=== PATIENT | male | born 1945 | race Caucasian/White ===

== ENCOUNTER 2019-04-05 09:17 | Inpatient (IN) ==
--- NOTE | 2019-04-05 09:58 | XRay Report ---
XR chest 1V portable CLINICAL HISTORY: weakness dyspnea COMPARISON STUDY: 04/03/2019 FINDINGS: The bones soft tissues and hemidiaphragms are normal. The cardiomediastinal silhouette is n ormal. The lungs are clear. The pulmonary vasculature is normal. IMPRESSION: Negative chest. The above report was generated using voice recognition software. It may contain grammatical, syntax or spelling errors. Electronically signed by: Jose Hill M.D. 04/05/2019 9:56 AM
[2019-04-05 10:03] LABS: Basophils # (auto) 0.03 K/uL (0-0.2); Basophils % (auto) 0.6 %; Eosinophils # (auto) 0.03 K/uL (0-0.5); Eosinophils % (auto) 0.6 %; Hematocrit (blood only) 40.2 % (42-52); Hemoglobin 13.3 g/dL (14.0-18.0); Immature Granulocytes # (auto) 0.01 K/uL (0.00-0.02); Immature Granulocytes % (auto) 0.2 %; Lymphocytes # (auto) 1.34 K/uL (1.2-3.4); Lymphocytes % (auto) 28.6 %; Mean Corpuscular Hemoglobin 25.7 pg (25-34); Mean Corpuscular Hgb Conc 33.1 g/dL (32-36); Mean Corpuscular Volume 77.8 fL (80-100); Mean Platelet Volume 9.8 fL (7.4-10.4); Monocytes # (auto) 0.45 K/uL (0.11-0.59); Monocytes % (auto) 9.6 %; Neutrophils # (auto) 2.83 K/uL (1.4-6.5); Neutrophils % (auto) 60.4 %; Platelet Count 145 K/uL (130-400); RDW Coefficient of Variation 14.7 % (11.5-14.5); RDW Standard Deviation 41.4 fL (36.4-46.3); Red Blood Count 5.17 M/uL (4.7-6.1); White Blood Count 4.69 K/uL (4.8-10.8)
[2019-04-05 10:20] LABS: Alanine Aminotransferase 37 U/L (12-78); Albumin Level 4.1 gm/dl (3.4-5.0); Aspartate Aminotransferase 34 U/L (15-37); BUN Creatinine Ratio 19.3 (10-20); Blood Urea Nitrogen 23 mg/dl (7-18); Calcium 9.5 mg/dl (8.5-10.1); Carbon Dioxide 28 mmol/L (21-32); Chloride 102 mmol/L (98-107); Creatinine Clr Calc Pharmacy 72.6 ml/min; Est GFR (Non-African American) 61.3; Glucose 123 mg/dl (70-99); Magnesium 2.1 mg/dl (1.8-2.4); Potassium 3.9 mmol/L (3.5-5.1); Sodium 135 mmol/L (136-145)
--- NOTE | 2019-04-05 10:21 | Emergency Department Note ---
Entered by Cherelle Lemus acting as a scribe for Basil uDmont MD History of Present Illness General Chief complaint: Dizziness Stated complaint: DIZZY ALL THE TIME, HYPOGLYCEMIA Time Seen by Provider: 04/05/19 09:28 Source: patient History of Present Illness Onset (ago): hour(s) (couple) Location: head Pain Consistency: + other (worsening) Maximum Pain Intensity: 0 Quality: + other (dizziness) Associated symptoms: + other (+"gassy" feeling in stomach; +shaky ); no chest pain, no cough, no diaphoresis, no fever/chills, no nausea/vomiting and no shortness of breath The patient is a 73 year old male, with past medical history of bradycardia, who presents to the Emergency Room with complaints of worsening dizziness over the past couple hours. 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 The patient notes he also had a gassy feeling in his stomach that kept giving him the urge to belch during this time. He states he also felt shaky and noticed his stomach making abnormal noises at this time as well. The patient states this episode has not subsided to this point. The patient reports he has had two episodes of dizziness in the past, with one occurring two months ago and one occurring two days ago. The patient states these past dizziness episodes led to him passing out each time, but the patient states he did not pass out in todays episode of dizziness. The patient denies experiencing chest pain, sweating, nausea, shortness of breath, or having a cough or fever. The patient reports he has had trouble with low blood pressure recently especially when getting up from a prone position. He also reports that he and his PCP agreed to cut his chlorthalidone prescription in half following the patient's first episode of dizziness and syncope that occurred two months ago. The patient states he thought this change helped the symptoms for a while. The patient also notes he has been dieting recently because he was told by his PCP to lose weight. He states he recently has lost 30 pounds. After the patients last dizziness and syncope episode that occurred 2 days ago, the patient notes he was told to reach out to his family doctor and schedule a follow-up visit with a edge stainer. The patient denies past cardiac issues. Home Medications Home Medications Medication Instructions Recorded Confirmed Type aspirin 81 mg PO HS 01/31/19 04/05/19 History atorvastatin 40 mg PO QAM 01/31/19 04/05/19 History calcium carbonate-vitamin D3 1 cap PO QAM 01/31/19 04/05/19 History [Calcium 600 + D(3)] chlorthalidone 25 mg PO QAM 01/31/19 04/05/19 History jv-ksm-ynkll acid-lutein [Centrum 1 tab PO QAM 01/31/19 04/05/19 History Silver] omega 7-gwi-qag-fish oil [Fish Oil] 1 cap PO TID 01/31/19 04/05/19 History ramipril 10 mg PO HS 01/31/19 04/05/19 History naproxen-diphenhydramine [Aleve PM] 1 tab PO PM 04/03/19 04/05/19 History Allergies Allergy/AdvReac Type Severity Reaction Status Date / Time Penicillins Allergy Intermediate Hives Verified 04/05/19 10:15 Past Med/Surg History Medical History Bradycardia (Acute) High cholesterol Hypertension Family History Other No significant past medical history Social History Preferred Language: Frisian Communication Ability: Effective Beliefs That Will Affect Care: Orthodox, Spiritual and Cultural Current Living Situation: Spouse Other Information That Helps Us Care for You: No Feels Safe at Home: Yes Safety Concerns: Feels Safe At This Time Smoking Status: Former smoker Hx Alcohol Use: Yes Alcohol type: wine Hx Substance Use: No Review of Systems See HPI for pertinent positives & negatives. and A total of 10 systems reviewed and were otherwise negative Physical Exam Vital Signs Vital Signs - 24 hr 04/05/19 09:22 04/05/19 10:05 04/05/19 10:06 Temperature 36.7 C Temperature Source Oral Pulse Rate - Lying Pulse Rate - Sitting Pulse Rate - Standing Pulse Rate 55 L 68 53 L Pulse Rate from SpO2 Sensor 66 54 L Respiratory Rate 16 20 21 Blood Pressure - Lying Blood Pressure - Sitting Blood Pressure- Standing Blood Pressure 189/78 H 174/92 H Blood Pressure Mean 115 132 Pulse Oximetry 99 97 97 Oxygen Delivery Method Room Air Sepsis Recent Fever Within 48 Hours No Sepsis New/Unexplained Change in Mental Status No Sepsis Action Taken by Nursing No Action Required 04/05/19 10:07 04/05/19 10:10 04/05/19 10:15 Temperature Temperature Source Pulse Rate - Lying 52 L Pulse Rate - Sitting 54 L Pulse Rate - Standing 57 L Pulse Rate 47 L Pulse Rate from SpO2 Sensor 48 L Respiratory Rate 20 Blood Pressure - Lying 139/76 Blood Pressure - Sitting 162/82 H Blood Pressure- Standing 174/92 H Blood Pressure Blood Pressure Mean Pulse Oximetry 98 98 Oxygen Delivery Method Room Air Sepsis Recent Fever Within 48 Hours Sepsis New/Unexplained Change in Mental Status Sepsis Action Taken by Nursing 04/05/19 10:31 04/05/19 10:32 Temperature Temperature Source Pulse Rate - Lying Pulse Rate - Sitting Pulse Rate - Standing Pulse Rate 45 L 49 L Pulse Rate from SpO2 Sensor 45 L 48 L Respiratory Rate 17 15 Blood Pressure - Lying Blood Pressure - Sitting Blood Pressure- Standing Blood Pressure 121/51 L Blood Pressure Mean 67 Pulse Oximetry 96 97 Oxygen Delivery Method Sepsis Recent Fever Within 48 Hours Sepsis New/Unexplained Change in Mental Status Sepsis Action Taken by Nursing GENERAL: Patient is in no acute distress. HEENT: No acute trauma, normocephalic atraumatic, mucous membranes moist, no nasal congestion, no scleral icterus. NECK: No stridor, no adenopathy, no meningismus, trachea is midline. LUNGS: Clear to auscultation bilaterally, no wheeze, no rhonchi, breath sounds equal. HEART: Without murmurs gallops or rubs, regular rate and rhythm. ABDOMEN: Soft, nontender, bowel sounds positive, no hernias, no peritonitis. EXTREMITIES: No cyanosis or edema, full range of motion of all the joints without pain or difficulty, no signs for acute trauma. NEUROLOGIC: Oriented x 3, no acute motor or sensory deficits, no focal weakness. SKIN: No rash, no jaundice, no diaphoresis. Course Course 930: Past medical records reviewed. The patient was evaluated in room A10. A complete history and physical exam was performed. 1023: The patient's orthostatic vital signs came back negative. 1052: I discussed the patient's case with Dr. Pack-Cardiology. Dr. Pack r ecommends that the patient is admitted to the hospital. 1057: I updated the patient on his case. The patient is agreeable with the plan. 1059: I reviewed the patient's case with Dr. Hernandez-Hospitalist. Dr. Hernandez will evaluate the patient for further management. Consultations Consultation #1: I discussed the patient's case with Dr. Pack-Cardiology. Dr. Pack recommends that the patient is admitted to the hospital. Time: 10:52 Consultation #2: I reviewed the patient's case with Dr. Hernandez-Hospitalist. Dr. Hernandez will evaluate the patient for further management. Time: 10:59 Administered Medications Fish Oil ([place]-3 (Purified Fish Oil)) 1 gm PO TID CAROL Stop: 05/05/19 13:59 Last Admin: 04/05/19 14:17 Dose: 1 gm Documented by: [id number] Sodium Chloride (Nss 1000ml) 1,000 mls @ 125 mls/hr IV .Q8H CAROL Stop: 04/06/19 11:29 Last Admin: 04/05/19 13:53 Dose: 125 mls/hr Documented by: [id number] Discontinued Medications Lisinopril (Zestril) 10 mg PO NOW ONE Stop: 04/05/19 12:34 Last Admin: 04/05/19 14:17 Dose: 10 mg Documented by: [id number] Medical Decision Making Differential Diagnosis Differential diagnosis includes orthostasis, anemia, dehydration, electrolyte imbalance, cardiac ischemia, bradycardia, dysrhythmia, atrial fibrillation, medication, reaction, amongst others were considered. Medical Records Attestation: I reviewed the patient's medical records. The patient was seen here on 04/[address] Young for dizziness. The patient had a few episodes of bradycardia while in the ED. No cause for the patient's dizziness was found at that time. The patient was recommended to obtain outpatient care. Home Medications Current Medication List: was personally reviewed by me Laboratory Data Attestation: I reviewed the patient's lab results. Result diagrams: 04/05/19 09:50 04/05/19 09:50 Lab Results 04/05/19 04/05/19 Range/Units 09:50 09:50 WBC 4.69 L (4.8-10.8) K/uL RBC 5.17 (4.7-6.1) M/uL Hgb 13.3 L (14.0-18.0) g/dL Hct 40.2 L (42-52) % MCV 77.8 L (80-100) fL MCH 25.7 (25-34) pg MCHC 33.1 (32-36) g/dL RDW Std Deviation 41.4 (36.4-46.3) fL RDW Coeff of Anupam 14.7 H (11.5-14.5) % Plt Count 145 (130-400) K/uL MPV 9.8 (7.4-10.4) fL Immature Gran % (Auto) 0.2 % Neut % (Auto) 60.4 % Lymph % (Auto) 28.6 % [place] % (Auto) 9.6 % Eos % (Auto) 0.6 % Baso % (Auto) 0.6 % Immature Gran # (Auto) 0.01 (0.00-0.02) K/uL Neut # (Auto) 2.83 (1.4-6.5) K/uL Lymph # (Auto) 1.34 (1.2-3.4) K/uL [place] # (Auto) 0.45 (0.11-0.59) K/uL Eos # (Auto) 0.03 (0-0.5) K/uL Baso # (Auto) 0.03 (0-0.2) K/uL Sodium 135 L (136-145) mmol/L Potassium 3.9 (3.5-5.1) mmol/L Chloride 102 (98-107) mmol/L Carbon Dioxide 28 (21-32) mmol/L Anion Gap 5.0 (3-11) BUN 23 H (7-18) mg/dl Creatinine 1.18 (0.6-1.4) mg/dl Est Cr Clr Drug Dosing 72.6 ml/min Est GFR ( Amer) 71.0 Est GFR (Non-Af Amer) 61.3 BUN/Creatinine Ratio 19.3 (10-20) Glucose 123 H (70-99) mg/dl Calcium 9.5 (8.5-10.1) mg/dl Magnesium 2.1 (1.8-2.4) mg/dl Total Bilirubin 0.7 (0.2-1) mg/dl AST 34 (15-37) U/L ALT 37 (12-78) U/L Alkaline Phosphatase 49 (45-117) U/L Troponin I < 0.015 (0-0.045) ng/ml Total Protein 7.4 (6.4-8.2) gm/dl Albumin 4.1 (3.4-5.0) gm/dl Globulin 3.3 (2.5-4.0) gm/dl Albumin/Globulin Ratio 1.2 (0.9-2) TSH 2.180 (0.300-4.500) uIu/ml Imaging Data Radiologist's Impression: XR chest 1V portable CLINICAL HISTORY: weakness dyspnea COMPARISON STUDY: 04/03/2019 FINDINGS: The bones soft tissues and hemidiaphragms are normal. The cardiomediastinal silhouette is normal. The lungs are clear. The pulmonary vasculature is normal. IMPRESSION: Negative chest. The above report was generated using voice recognition software. It may contain grammatical, syntax or spelling errors. Electronically signed by: Jose Hill M.D. 04/05/2019 9:56 AM ECG Data Attestation: I personally reviewed and interpreted this ECG as follows: Indication: + bradycardia Rate (beats per minute): 60 Rhythm: + normal sinus ECG ST segments: no ST elevation ECG Findings: + Other (QTC 416); no PVCs Blood Pressure Blood Pressure Findings: Elevated blood pressure Blood Pressure Disposition: further management by hospitalist [facility] Narrative There is no leukocytosis or concerning anemia. No significant electrolyte abnormality or kidney failure. No evidence of for liver enzyme elevation. The patient appeared to be in a euthyroid state. EKG shows a sinus rhythm, no acute ischemia. Cardiac enzyme testing x1 is not consistent with acute cardiac injury. Chest film does not show cardiomegaly or CHF. There was no pneumonia. Orthostatic vital signs were negative. The patient presents with dizziness and near syncope. This issue has been ongoing but worsening. Patient is currently asymptomatic. His work-up is unrevealing. He did demonstrate some bradycardic spells while here in the ED although, it was a sinus bradycardia. I spoke with cardiology. Hospitalization, monitoring and further work-up were recommended. I did speak with case management, the on-call hospitalist was consulted. At this point, the cause for his presentation is not clear. Impression & Plan Near syncope, Bradycardia, Dizziness Discharge Plan Visit Data *Final* Discharge Date/Time: 04/05/19 12:28 Chief Complaint: Dizziness Stated Complaint: DIZZY ALL THE TIME, HYPOGLYCEMIA ED Provider: Basil Dumont Discharge Problem: Near syncope, Bradycardia, Dizziness Patient Disposition: Admitted As Inpatient Discharge Instructions Interventions: ED Discharge Assessment Last Done: 04/05/19 12:28 The scribe's documentation has been prepared under my direction and personally reviewed by me in its entirety. I confirm that the note above accurately reflects all work, treatment, procedures, and medical decision making performed by me.
[2019-04-05 10:31] LABS: Albumin Globulin Ratio 1.2 (0.9-2); Alkaline Phosphatase 49 U/L (45-117); Bilirubin,Total 0.7 mg/dl (0.2-1); Globulin 3.3 gm/dl (2.5-4.0); Total Protein 7.4 gm/dl (6.4-8.2); Troponin I < 0.015 ng/ml (0-0.045)
--- NOTE | 2019-04-05 11:34 | Cardiology Consultation ---
Date of Consultation April 05, 2019 Assessment & Plan (1) Near syncope: At this point there does not appear to be primary cardiac pathophysiology to his near syncope. Preliminary review of his echocardiogram shows no significant structural abnormalities or outlet obstructions. Telemetry monitoring shows normal sinus rhythm with some asymptomatic episodes of sinus bradycardia into the 40s. Would recommend he be monitored overnight on continuous telemetry and consideration may be given to outpatient telemetry monitoring on discharge. Our office will call to arrange cardiology follow-up in approximately 1 month. It does appear that his chlorthalidone may be an exacerbating factor and will be discontinued. His episodes are likely multifactorial in nature given his recent intentional weight loss, decreased fluid intake and relatively low protein diet. (2) Bradycardia: Physiologic Patient exercise by doing cardio at least twice a day (3) Hypertension: Will follow now that the chlorthalidone is discontinued His MARILOU inhibitor will be continued as regimen can be tailored as an outpatient. Supervising Physician Co-Signing Physician Notes Patient seen and examined with Melina Villavicencio PA-C. Agree with findings and assessment as above. Symptoms reviewed with the patient and his at this time. It should be noted that while he was bradycardic in the 40s in the emergency room he was completely asymptomatic. He notes that he exercises on a daily basis usually twice a day doing cardio and his resting heart rate is usually in the 40s to 50s. His physical examination is unremarkable at this time as his preliminary review of his echocardiogram and telemetry monitoring. I do not believe we will find a primary cardiac source for his lightheadedness or dizziness however I have no doubt that the chlorthalidone is a contributing factor. After reviewing his daily routine I believe he may also be chronically volume depleted and have recommended he increase his fluid intake. I have also recommended he change his eating habits to eating more frequent meals with a greater amount of protein. He should be monitored overnight on telemetry and should that be unremarkable they will likely be discharged home in the a.m. and my office will arrange for cardiac follow-up as an outpatient. History of Present Illness Reason for Consultation: Bradycardia; Near syncope Requesting Physician: Dr. Hernandez Attending Physician: Dr. Fermín Pack History of Present Illness Patient is a 73-year-old male who presented to [facility] ER earlier today with complaints of dizziness. This is his 3rd ER visit for similar complaints of dizziness and prior episode of syncope/near syncope. He carries a history significant for hypertension, dyslipidemia, prediabetes and GERD. He denies history of cardiovascular issues. He denies history of CAD, CO, CHF, valvular heart disease. He had a prior stress test many years ago in [facility] which he reports was normal. he has been told for many years that his heart rate is "slow". In January 2019, patient got out of bed to use the restroom and experienced a syncopal event. He was evaluated in the ER and thought to be orthostatic hypotension. EKG at that time demonstrated Sinus bradycardia at 46 bpm. He reports his chlorthalidone was reduced from 25 mg BID to 25 mg daily at that time, which aided his intermittent dizziness. He reports about 30 lb intentional weight loss over the last few months with monitoring diet and increasing exercise. He denies exertional chest pain or SOB. No dizziness with exercise. No palpitations or tachypalpitations. Earlier this week he sustained a second similar episode. Allergies Allergy/AdvReac Type Severity Reaction Status Date / Time Penicillins Allergy Intermediate Hives Verified 04/05/19 10:15 Home Medications Home Medications Medication Instructions Recorded Confirmed Type aspirin 81 mg PO HS 01/31/19 04/05/19 History atorvastatin 40 mg PO QAM 01/31/19 04/05/19 History calcium carbonate-vitamin D3 1 cap PO QAM 01/31/19 04/05/19 History [Calcium 600 + D(3)] chlorthalidone 25 mg PO QAM 01/31/19 04/05/19 History fy-osy-zvlou acid-lutein [Centrum 1 tab PO QAM 01/31/19 04/05/19 History Silver] omega 2-cqc-ctq-fish oil [Fish Oil] 1 cap PO TID 01/31/19 04/05/19 History ramipril 10 mg PO HS 01/31/19 04/05/19 History naproxen-diphenhydramine [Aleve PM] 1 tab PO PM 04/03/19 04/05/19 History Patient History Medical History Bradycardia (Acute) High cholesterol Hypertension Family History Other No significant past medical history Social History Preferred Language: Nepali Communication Ability: Effective Beliefs That Will Affect Care: Confucianist, Spiritual and Cultural Current Living Situation: Spouse Other Information That Helps Us Care for You: No Feels Safe at Home: Yes Safety Concerns: Feels Safe At This Time Smoking Status: Former smoker Hx Alcohol Use: Yes Alcohol type: wine Hx Substance Use: No Review of Systems Review of Systems: All systems reviewed & are unremarkable except as noted in HPI & below Physical Exam Physical Exam: Physical Exam: General: Awake, alert and oriented x 3. No acute distress. HEENT: Normocephalic, atraumatic. Pupils equal, round and reactive to light and accommodation. Extraocular muscles are intact. Anicteric sclera. Moist mucous membranes. Neck: No JVD. No bruit. Cardiovascular: Regular. No S-4. Normal S-1 and S-2. No S-3. No murmurs, rubs or gallops. Pulmonary: Clear to auscultation bilaterally. No rales, rhonchi, or wheezing. Abdomen: Bowel sounds x 4, soft. No rebound, guarding or tenderness. No organomegaly. Extremities: No clubbing, cyanosis or edema. +2 pedal pulses bilaterally. Skin: Warm and dry. Results & Data Vital Signs (Past 12 Hours) Vital Signs Temp Pulse Resp BP Pulse Ox 04/05/19 10:15 98 04/05/19 10:10 47 L 20 98 04/05/19 10:06 53 L 21 97 04/05/19 10:05 68 20 174/92 H 97 04/05/19 09:22 36.7 C 55 L 16 189/78 H 99 Laboratory Results Laboratory Results - last 24 hr 04/05/19 04/05/19 09:50 09:50 WBC 4.69 L RBC 5.17 Hgb 13.3 L Hct 40.2 L MCV 77.8 L MCH 25.7 MCHC 33.1 RDW Std Deviation 41.4 RDW Coeff of Anupam 14.7 H Plt Count 145 MPV 9.8 Immature Gran % (Auto) 0.2 Neut % (Auto) 60.4 Lymph % (Auto) 28.6 [place] % (Auto) 9.6 Eos % (Auto) 0.6 Baso % (Auto) 0.6 Immature Gran # (Auto) 0.01 Neut # (Auto) 2.83 Lymph # (Auto) 1.34 [place] # (Auto) 0.45 Eos # (Auto) 0.03 Baso # (Auto) 0.03 Sodium 135 L Potassium 3.9 Chloride 102 Carbon Dioxide 28 Anion Gap 5.0 BUN 23 H Creatinine 1.18 Est Cr Clr Drug Dosing 72.6 Est GFR ( Amer) 71.0 Est GFR (Non-Af Amer) 61.3 BUN/Creatinine Ratio 19.3 Glucose 123 H Calcium 9.5 Magnesium 2.1 Total Bilirubin 0.7 AST 34 ALT 37 Alkaline Phosphatase 49 Troponin I < 0.015 Total Protein 7.4 Albumin 4.1 Globulin 3.3 Albumin/Globulin Ratio 1.2 TSH 2.180 Medications Administered Current Inpatient Medications Aspirin (Ecotrin Ectab) 81 mg PO HS CAROL Stop: 05/05/19 20:59 Atorvastatin Calcium (Lipitor) 40 mg PO QAM CAROL Stop: 05/06/19 08:59 Enalapril Maleate (Vasotec) 40 mg PO HS CAROL Stop: 05/05/19 20:59 Fish Oil ([place]-3 (Purified Fish Oil)) 1 gm PO TID CAROL Stop: 05/05/19 13:59 Last Admin: 04/05/19 14:17 Dose: 1 gm Documented by: Heparin Sodium (Porcine) (Heparin Sodium (Porcine)) 5,000 units SQ Q12 CAROL Stop: 05/05/19 20:59 Sodium Chloride (Nss 1000ml) 1,000 mls @ 125 mls/hr IV .Q8H CAROL Stop: 04/06/19 11:29 Last Admin: 04/05/19 13:53 Dose: 125 mls/hr Documented by: Multivitamins/Minerals (Caltrate Plus) 1 tab PO QAM CAROL Stop: 05/06/19 08:59 Multivitamins/Minerals (Multivitamin W/ Minerals Tab) 1 tab PO QAM CAROL Stop: 05/06/19 08:59
--- NOTE | 2019-04-05 11:48 | History & Physical Report ---
Date of Service April 05, 2019 Assessment & Plan (1) Bradyarrhythmia: Has been having syncopal episode for the last 2 months Happened this morning while he was sitting on a chair,felt dizzy and became sweaty He was noted to have a low heart rate since then Will be admitted to telemetry unit We will get echocardiogram Cardiology consulted for further evaluation and management (2) Syncope: Has had syncope 2 months ago,that happened at nighttime Likely secondary to postural hypotension Has been taking chlorthalidone, now 25 mg daily and previously 25 million twice daily Will hold chlorthalidone CT scan has been negative We will get carotid ultrasound to rule out any significant obstruction And give cautious amount of intravenous fluid (3) Hypertension: History of hypertension controlled with lisinopril and chlorthalidone Chlorthalidone has been discontinued Likely to need increasing dose of lisinopril to control blood pressure (4) High cholesterol: Continue current statin Esophageal reflux We will advised Maalox/Mylanta for that DVT prophylaxis Subcu heparin CODE STATUS Full History of Present Illness Chief Complaint: Recurrent syncope for the last 2 months. Primary Care Provider: Elysia Burkett DO He is a 73-year-old male with significant past medical history of hypertension, hyperlipidemia and esophageal reflux apparently has been complaining of syncopal episode for the last 2 months. He suffered initial syncope and collapse about 2 months ago when he was getting out of bed and going to the bathroom at the middle of the night. He was evaluated by his PCP following that and nothing significant noted. He has had another episode of syncope about 2 days ago and today while he was sitting at a car to look sharp he felt dizzy with sweating, he went home and then later on came to emergency room for further evaluation of his problem. He was noted to have very low heart rate at lower 40s today. He denies any chest pain and/or shortness of breath with the episodes of syncope, denies any headache or blurred vision no numbness or tingling involving any of the extremities, denies any abdominal pain nausea and vomiting, denies any problem with his urine and her bowel habit. He was hemodynamically stable with blood pressure on the upper side and heart rate around upper 40s and he was admitted to telemetry unit for continuation of care. Allergies Allergy/AdvReac Type Severity Reaction Status Date / Time Penicillins Allergy Intermediate Hives Verified 04/05/19 10:15 Home Medications Home Medications Medication Instructions Recorded Confirmed Type aspirin 81 mg PO HS 01/31/19 04/05/19 History atorvastatin 40 mg PO QAM 01/31/19 04/05/19 History calcium carbonate-vitamin D3 1 cap PO QAM 01/31/19 04/05/19 History [Calcium 600 + D(3)] chlorthalidone 25 mg PO QAM 01/31/19 04/05/19 History [id number] acid-lutein [Centrum 1 tab PO QAM 01/31/19 04/05/19 History Silver] omega [id number] oil [Fish Oil] 1 cap PO TID 01/31/19 04/05/19 History ramipril 10 mg PO HS 01/31/19 04/05/19 History naproxen-diphenhydramine [Aleve PM] 1 tab PO PM 04/03/19 04/05/19 History Past Med/Surg History Social History Preferred Language: [place] Feels Safe at Home: Yes Smoking Status: Never smoker Review of Systems Review of Systems: All systems reviewed & are unremarkable except as noted in HPI & below Physical Exam Physical Exam: Lying in bed comfortably Constitutional: well developed, well nourished and + obese; no acute distress and not ill appearing Eyes: PERRL, conjunctivae normal, anicteric sclerae ENMT: external ear and nose normal, oropharynx normal Neck: trachea midline, no thyromegaly Respiratory: normal respiratory effort; no respiratory distress Auscultation: lungs clear to auscultation bilaterally Cardiovascular: Rate/Rhythm: regular rate, regular rhythm and + bradycardic Heart Sounds: no murmur Gastrointestinal (Abdomen): Inspection/Auscultation: abdomen normal to inspection and normal bowel sounds Percussion/Palpation: abdomen soft; abdomen nontender Musculoskeletal: No acute arthritis in any joints Neurologic: moves all extremities; no focal motor deficits Alert, awake and oriented x3 Lymphatic: no cervical or axillary lymphadenopathy Results & Data Vital Signs (Past 12 Hours) Vital Signs Temp Pulse Resp BP Pulse Ox 04/05/19 10:15 98 04/05/19 10:10 47 L 20 98 04/05/19 10:06 53 L 21 97 04/05/19 10:05 68 20 174/92 H 97 04/05/19 09:22 36.7 C 55 L 16 189/78 H 99 Laboratory Results Short CBC 04/05/19 Range/Units 09:50 WBC 4.69 L (4.8-10.8) K/uL Hgb 13.3 L (14.0-18.0) g/dL Hct 40.2 L (42-52) % Plt Count 145 (130-400) K/uL BMP 04/05/19 09:50 Sodium 135 L Potassium 3.9 Chloride 102 Carbon Dioxide 28 BUN 23 H Creatinine 1.18 Glucose 123 H Calcium 9.5 Cardiac Enzymes 04/05/19 Range/Units 09:50 Troponin I < 0.015 (0-0.045) ng/ml Liver Function 04/05/19 Range/Units 09:50 Total Bilirubin 0.7 (0.2-1) mg/dl AST 34 (15-37) U/L ALT 37 (12-78) U/L Alkaline Phosphatase 49 (45-117) U/L Albumin 4.1 (3.4-5.0) gm/dl Medications Administered Current Inpatient Medications Heparin Sodium (Porcine) (Heparin Sodium (Porcine)) 5,000 units SQ Q12 [facility] Stop: 05/05/19 20:59 Sodium Chloride (Nss 1000ml) 1,000 mls @ 125 mls/hr IV .Q8H [facility] Stop: 04/06/19 11:29 Code Status & VTE Plan VTE Prophylaxis Plan VTE Prophylaxis will be ordered: Yes (1) Syncope Syncope type: unspecified Qualified Code(s): R55 - Syncope and collapse
[2019-04-05] MEDS ORDERED: lisinopriL 10 MG TAB PO ONE (12:33)
[2019-04-05] MEDS: SODIUM CHLORIDE 0.9% 1000ML 1,000 ML IV SCH ×2 (13:53→20:30)
[2019-04-05] MEDS: OMEGA-3 (PURIFIED FISH OIL) 1 GM CAP PO SCH ×2 (14:17→20:09)
--- NOTE | 2019-04-05 14:20 | Ultrasound Report ---
US carotid doppler BI CLINICAL HISTORY: 73 years-old Male presenting with syncope, dizziness, concern for stenoses. TECHNIQUE: Real-time grayscale and color and spectral Doppler ultrasound imaging of the bilateral car otid arteries was performed. Stenosis measurements were based on NASCET-like criteria (distal lumen d iameter as the denominator for stenosis measurement). COMPARISON: None. FINDINGS: RIGHT: Common carotid artery (CCA): Atherosclerosis at the carotid bulb. Peak systolic velocity (PSV) 108 cm /s. Internal carotid artery (ICA): Atherosclerosis of the proximal ICA. PSV 62 cm/s. End diastolic veloci ty (EDV) 14 cm/s. ICA/CCA (systolic) ratio: 0.6. External carotid artery (ECA): Patent. PSV 106 cm/s. LEFT: CCA: Atherosclerosis at the carotid bulb. PSV 106 cm/s. ICA: Atherosclerosis of the proximal ICA. PSV 69 cm/s. EDV 21 cm/s. ICA/CCA (systolic) ratio: 0.7. ECA: Patent. PSV 115 cm/s. Bilateral antegrade flow within the vertebral arteries. Blood pressure: Brachial: Right: 162/82 mmHg, Left: 174/92 mmHg. Reference ranges: Stenosis measurements are compared to reference velocity parameters by the Society of Radiologists in Ultrasound (SRU) consensus and Sonographic NASCET index (S-NASCET). * SRU Primary parameters: ICA PSV <125 cm/s = normal or less than 50% stenosis; ICA PSV 125-230 cm/s = 50-69% stenosis; ICA PSV >230 cm/s = greater than or equal to 70% stenosis. * SRU Additional parameters: ICA/CCA PSV ratio <2 = normal or less than 50% stenosis; ratio 2-4 = 5 0-69% stenosis; ratio >4 = greater than or equal to 70% stenosis. ICA EDV <40 cm/s = normal or less t matias 50% stenosis; ICA EDV 40-100 cm/s = 50-69% stenosis; ICA EDV >100 cm/s = greater than or equal to 70% stenosis. * S-NASCET parameters: Deceleration spectral broadening + PSV <125 cm/s = less than 50% stenosis; pa nsystolic spectral broadening + PSV <125 cm/s = 16-49% stenosis; pansystolic spectral broadening + PS V >125 cm/s + EDV <110 cm/s or ICA/CCA PSV ratio 2-4 = 50-69% stenosis; pansystolic spectral broadeni ng + PSV >270 cm/s OR EDV >110 cm/s OR ICA/CCA PSV ratio >4 = 70-79% stenosis; EDV >140 cm/s = 80-99% stenosis. IMPRESSION: 1. Atherosclerosis without hemodynamically significant stenosis in the carotid arteries. 2. Systemic hypertension. Electronically signed by: Donnie Ferrera M.D. 04/05/2019 2:18 PM
[2019-04-05 15:13] LABS: Appearance Urine Clear (Clear); Bilirubin Urine Negative (Negative); Blood Urine Negative (Negative); Color Urine Yellow; Glucose Urine UA Negative (Negative); Ketones Urine Negative (Negative); Leukocyte Esterase Urine Negative (Negative); Nitrite Urine Negative (Negative); Protein Urine Negative (Negative); Specific Gravity Urine 1.012 (1.000-1.030); Urobilinogen Urine Negative (Negative)
[2019-04-05] MEDS: HEPARIN SOD 5,000 UNIT/0.5 ML VIAL SQ SCH (20:08)
[2019-04-05] MEDS: ASPIRIN 81 MG ECTAB PO SCH (20:09)
[2019-04-05] MEDS: ENALAPRIL MALEATE 10 MG TAB PO SCH (20:10)
[2019-04-06] MEDS: SODIUM CHLORIDE 0.9% 1000ML 1,000 ML IV SCH (04:32)
[2019-04-06 06:49] LABS: Basophils # (auto) 0.02 K/uL (0-0.2); Basophils % (auto) 0.3 %; Eosinophils # (auto) 0.09 K/uL (0-0.5); Eosinophils % (auto) 1.4 %; Hematocrit (blood only) 40.8 % (42-52); Immature Granulocytes # (auto) 0.01 K/uL (0.00-0.02); Immature Granulocytes % (auto) 0.2 %; Lymphocytes % (auto) 40.3 %; Mean Corpuscular Hemoglobin 25.1 pg (25-34); Mean Corpuscular Hgb Conc 31.9 g/dL (32-36); Mean Corpuscular Volume 78.9 fL (80-100); Monocytes % (auto) 11.3 %; Neutrophils # (auto) 2.89 K/uL (1.4-6.5); Neutrophils % (auto) 46.5 %; Platelet Count 149 K/uL (130-400); RDW Coefficient of Variation 14.8 % (11.5-14.5); RDW Standard Deviation 42.6 fL (36.4-46.3); Red Blood Count 5.17 M/uL (4.7-6.1); White Blood Count 6.21 K/uL (4.8-10.8)
[2019-04-06 07:15] LABS: BUN Creatinine Ratio 14.9 (10-20); Calcium 9.1 mg/dl (8.5-10.1); Creatinine Clr Calc Pharmacy 70.3 ml/min; Est GFR (African American) 68.9; Est GFR (Non-African American) 59.5; Magnesium 2.1 mg/dl (1.8-2.4); Potassium 3.8 mmol/L (3.5-5.1)
[2019-04-06] MEDS: CALCIUM 600MG + VIT D 400 IU TAB PO SCH (08:40)
[2019-04-06] MEDS: ATORVASTATIN 40 MG TAB PO SCH (08:41)
[2019-04-06] MEDS: HEPARIN SOD 5,000 UNIT/0.5 ML VIAL SQ SCH ×2 (08:43→20:56)
[2019-04-06] MEDS: OMEGA-3 (PURIFIED FISH OIL) 1 GM CAP PO SCH ×3 (08:43→20:56)
[2019-04-06] MEDS: CEROVITE ADV FORMULA TAB PO SCH (08:43)
[2019-04-06] MEDS ORDERED: ACETAMINOPHEN 325 MG TAB ONE (08:46)
[2019-04-06] MEDS ORDERED: ACETAMINOPHEN 325 MG TAB PO PRN (08:51)
[2019-04-06 10:37] LABS: Lyme Ab IgG w/WB Rflx Negative (Negative); Lyme Ab IgM w/WB Rflx Negative (Negative)
--- NOTE | 2019-04-06 12:53 | Cardiology Progress Note ---
Date of Service April 06, 2019 Assessment & Plan (1) Sick sinus syndrome due to SA node dysfunction: (2) Near syncope: The patient has had 3 syncopal events in the past several weeks. 2 events occurred in the middle night when he got up to go to the bathroom, finding himself on the floor. The last episode occurred at the car dealership while waiting for his car. On the telemetry he is exhibiting episodes of sinus bradycardia with heart rates in the 30s even when he is awake. He does exercise routinely and has no symptoms whenever he is walking on the treadmill or using his stationary bike, but I think he has sinus node dysfunction with sick sinus syndrome. I think he may benefit from a pacemaker to prevent syncope. I will have the passenger barge master see him for consideration of a pacemaker. He should remain on the electronic device monitor. Subjective The patient has no symptoms. He denies dizziness or lightheadedness. I reviewed the chart, including patient's medications and discussed his care with both the patient and his . Review of Systems Review of Systems: All systems reviewed & are unremarkable except as noted in HPI & below Nothing additional to add. Physical Exam Physical Exam: General: no acute distress and stated age Head: normocephalic, no masses, lesions, tenderness or abnormalities Eyes: conjunctiva are pink and non-injected, sclera clear Neck: supple, no adenopathy, no bruits, normal jugular venous pulse, no hepatojugular reflux Chest: normal shape and normal respiratory effort Lungs: clear to auscultation and percussion Cardiac Exam: - regular rate & rhythm, no murmurs gallops or rubs - normal S1, normal S2 Pulses: 2(+) throughout Abdomen: abdomen soft, non-tender, no abnormal masses and no hepatosplenomegaly Musculoskeletal: no gait disturbance, no joint inflammation, no deforming arth ritis Extremities: no edema and no cyanosis Neuro: grossly normal exam Results & Data Vital Signs (Past 12 Hours) Vital Signs Temp Pulse Resp BP Pulse Ox 04/06/19 11:47 36.5 C 47 L 18 128/75 97 04/06/19 07:00 36.7 C 48 L 18 130/70 95 04/06/19 04:05 36.6 C 46 L 18 116/64 96 Laboratory Results Laboratory Results - last 24 hr 04/05/19 04/06/19 04/06/19 14:40 06:20 06:20 WBC 6.21 RBC 5.17 Hgb 13.0 L Hct 40.8 L MCV 78.9 L MCH 25.1 MCHC 31.9 L RDW Std Deviation 42.6 RDW Coeff of Anupam 14.8 H Plt Count 149 MPV 10.0 Immature Gran % (Auto) 0.2 Neut % (Auto) 46.5 Lymph % (Auto) 40.3 [place] % (Auto) 11.3 Eos % (Auto) 1.4 Baso % (Auto) 0.3 Immature Gran # (Auto) 0.01 Neut # (Auto) 2.89 Lymph # (Auto) 2.50 [place] # (Auto) 0.70 H Eos # (Auto) 0.09 Baso # (Auto) 0.02 Sodium Potassium Chloride Carbon Dioxide Anion Gap BUN Creatinine Est Cr Clr Drug Dosing Est GFR ( Amer) Est GFR (Non-Af Amer) BUN/Creatinine Ratio Glucose Calcium Magnesium Urine Color Yellow Urine Appearance Clear Urine pH 8.0 H Ur Specific [place] 1.012 Urine Protein Negative Urine Glucose (UA) Negative Urine Ketones Negative Urine Blood Negative Urine Nitrite Negative Urine Bilirubin Negative Urine Urobilinogen Negative Ur Leukocyte Esterase Negative Lyme Disease IgG Ab Lyme Disease IgM Ab Hepatitis C Ab Screen Neg 04/06/19 04/06/19 06:20 06:20 WBC RBC Hgb Hct MCV MCH MCHC RDW Std Deviation RDW Coeff of Anupam Plt Count MPV Immature Gran % (Auto) Neut % (Auto) Lymph % (Auto) [place] % (Auto) Eos % (Auto) Baso % (Auto) Immature Gran # (Auto) Neut # (Auto) Lymph # (Auto) [place] # (Auto) Eos # (Auto) Baso # (Auto) Sodium 139 Potassium 3.8 Chloride 106 Carbon Dioxide 28 Anion Gap 5.0 BUN 18 Creatinine 1.21 Est Cr Clr Drug Dosing 70.3 Est GFR ( Amer) 68.9 Est GFR (Non-Af Amer) 59.5 BUN/Creatinine Ratio 14.9 Glucose 114 H Calcium 9.1 Magnesium 2.1 Urine Color Urine Appearance Urine pH Ur Specific [place] Urine Protein Urine Glucose (UA) Urine Ketones Urine Blood Urine Nitrite Urine Bilirubin Urine Urobilinogen Ur Leukocyte Esterase Lyme Disease IgG Ab Negative Lyme Disease IgM Ab Negative Hepatitis C Ab Screen Medications Administered Current Inpatient Medications Acetaminophen (Tylenol) 650 mg PO Q6H PRN PRN Reason: Pain Stop: 05/06/19 08:50 Aspirin (Ecotrin Ectab) 81 mg PO HS [facility] Stop: 05/05/19 20:59 Last Admin: 04/05/19 20:09 Dose: 81 mg Documented by: Atorvastatin Calcium (Lipitor) 40 mg PO QAM [facility]OL Stop: 05/06/19 08:59 Last Admin: 04/06/19 08:41 Dose: 40 mg Documented by: Enalapril Maleate (Vasotec) 40 mg PO HS [facility] Stop: 05/05/19 20:59 Last Admin: 04/05/19 20:10 Dose: 40 mg Documented by: Fish Oil ([place]-3 (Purified Fish Oil)) 1 gm PO TID [facility] Stop: 05/05/19 13:59 Last Admin: 04/06/19 08:43 Dose: 1 gm Documented by: Heparin Sodium (Porcine) (Heparin Sodium (Porcine)) 5,000 units SQ Q12 [facility] Stop: 05/05/19 20:59 Last Admin: 04/06/19 08:43 Dose: 5,000 units Documented by: Multivitamins/Minerals (Caltrate Plus) 1 tab PO QAM [facility] Stop: 05/06/19 08:59 Last Admin: 04/06/19 08:40 Dose: 1 tab Documented by: Multivitamins/Minerals (Multivitamin W/ Minerals Tab) 1 tab PO QAM [facility] Stop: 05/06/19 08:59 Last Admin: 04/06/19 08:43 Dose: 1 tab Documented by:
--- NOTE | 2019-04-06 16:23 | Hospitalist Progress Note ---
Date of Service April 06, 2019 Assessment & Plan (1) Bradyarrhythmia: Symptomatic bradycardia Sick sinus syndrome secondary to SA josef dysfunction Near-syncope --ECHO:LV chamber size, with mild concentric LVH, normal LV systolic function, EF 60 to 65%. No segmental left ventricular wall motion abnormalities. Grade 1 diastolic dysfunction. Aortic valve sclerosis mild, without significant aortic valvular stenosis. --Lyme screen: Negative Avoid AV josef blocking agents Monitor on telemetry Appreciate cardiology input Plan to be evaluated by comparison shopper for possible pacemaker placement Pacer pads at bedside (2) Syncope: Recent syncopal episode CT head from 04/03/19:There is no hemorrhage, mass effect, or evidence of acute territorial ischemia by CT criteria. Carotid Doppler:Atherosclerosis without hemodynamically significant stenosis in the carotid arteries. Systemic hypertension. Management as above Chlorthalidone currently held (3) Hypertension: Chlorthalidone discontinued Ramipril 10 mg has been transitioned to enalapril 40 mg Monitor and adjust blood pressure medications as needed (4) High cholesterol: Continue statin DVT Px: SQ Heparin CODE STATUS Full Code Disposition Expect to discharge home when medically stable Subjective Patient is seen and examined at bedside States feeling better today Denies any dizziness, nausea, chest pain, shortness of breath, abdominal pain classroom monitor--heart rate as low as 30s with absence of P waves at times Discussed with cardiology today Offers no other complaints Review of Systems Review of Systems: All systems reviewed & are unremarkable except as noted in HPI & below Physical Exam Physical Exam: Physical Exam: Vitals signs as noted above General Appearance:Moderately built and nourished, no apparent distress Head: normocephalic, Atraumatic Eyes: normal inspection, EOMI Neck: supple, Trachea midline Respiratory/Chest: Normal breath sounds, CTA Cardiovascular: S1, S2, No murmur, +Bradycardia Abdomen/GI:Soft, Non tender, Bowel sounds present Extremities/Musculoskelatal:normal inspection, no edema Neurologic/Psych:AAOX3, grossly no focal neurological deficits Skin: normal color, warm Results & Data Vital Signs (Past 12 Hours) Vital Signs Temp Pulse Resp BP Pulse Ox 04/06/19 15:10 36.7 C 49 L 18 126/67 96 04/06/19 11:47 36.5 C 47 L 18 128/75 97 04/06/19 07:00 36.7 C 48 L 18 130/70 95 Laboratory Results Short CBC 04/06/19 Range/Units 06:20 WBC 6.21 (4.8-10.8) K/uL Hgb 13.0 L (14.0-18.0) g/dL Hct 40.8 L (42-52) % Plt Count 149 (130-400) K/uL BMP 04/06/19 06:20 Sodium 139 Potassium 3.8 Chloride 106 Carbon Dioxide 28 BUN 18 Creatinine 1.21 Glucose 114 H Calcium 9.1 (1) Syncope Syncope type: unspecified Qualified Code(s): R55 - Syncope and collapse
[2019-04-06] MEDS: ENALAPRIL MALEATE 10 MG TAB PO SCH (20:56)
[2019-04-06] MEDS: ASPIRIN 81 MG ECTAB PO SCH (20:56)
[2019-04-07 06:44] LABS: BUN Creatinine Ratio 14.3 (10-20); Calcium 9.2 mg/dl (8.5-10.1); Creatinine Clr Calc Pharmacy 73.7 ml/min; Est GFR (African American) 73.3; Est GFR (Non-African American) 63.2; Potassium 3.9 mmol/L (3.5-5.1)
[2019-04-07] MEDS: CEROVITE ADV FORMULA TAB PO SCH (08:21)
[2019-04-07] MEDS: OMEGA-3 (PURIFIED FISH OIL) 1 GM CAP PO SCH ×3 (08:21→21:01)
[2019-04-07] MEDS: ATORVASTATIN 40 MG TAB PO SCH (08:21)
[2019-04-07] MEDS: HEPARIN SOD 5,000 UNIT/0.5 ML VIAL SQ SCH ×2 (08:23→21:02)
[2019-04-07] MEDS: CALCIUM 600MG + VIT D 400 IU TAB PO SCH (09:07)
--- NOTE | 2019-04-07 12:40 | Cardiology Progress Note ---
Date of Service April 07, 2019 Assessment & Plan (1) Sick sinus syndrome due to SA node dysfunction: (2) Syncope: The patient is still having low heart rates on the monitor. With his recent history of multiple syncopal events I think it is likely that he has sinus node dysfunction and sick sinus syndrome. I have put in a consultation for electrophysiology to review him for possible pacemaker. He will be made n.p.o. after midnight and an IV will be started at that time in anticipation of a possible pacemaker early tomorrow. Subjective The patient had an uneventful night. He is not symptomatic at this point. On the telemetry he remains in a sinus mechanism however his heart rates dipped into the low 30s at night while sleeping. Review of Systems Review of Systems: All systems reviewed & are unremarkable except as noted in HPI & below Nothing additional. Physical Exam Physical Exam: General: no acute distress and stated age Head: normocephalic, no masses, lesions, tenderness or abnormalities Eyes: conjunctiva are pink and non-injected, sclera clear Neck: supple, no adenopathy, no bruits, normal jugular venous pulse, no hepatojugular reflux Chest: normal shape and normal respiratory effort Lungs: clear to auscultation and percussion Cardiac Exam: - regular rate & rhythm, no murmurs gallops or rubs - normal S1, normal S2 Pulses: 2(+) throughout Abdomen: abdomen soft, non-tender, no abnormal masses and no hepatosplenomegaly Musculoskeletal: no gait disturbance, no joint inflammation, no deforming arthritis Extremities: no edema and no cyanosis Neuro: grossly normal exam Results & Data Vital Signs (Past 12 Hours) Vital Signs Temp Pulse Resp BP Pulse Ox 04/07/19 11:33 36.7 C 52 L 18 127/63 98 04/07/19 07:16 36.9 C 46 L 18 111/51 L 97 04/07/19 03:57 36.3 C L 46 L 18 122/72 95 Laboratory Results Laboratory Results - last 24 hr 04/07/19 05:56 Sodium 139 Potassium 3.9 Chloride 106 Carbon Dioxide 29 Anion Gap 4.0 BUN 16 Creatinine 1.15 Est Cr Clr Drug Dosing 73.7 Est GFR ( Amer) 73.3 Est GFR (Non-Af Amer) 63.2 BUN/Creatinine Ratio 14.3 Glucose 112 H Calcium 9.2 Medications Administered Current Inpatient Medications Acetaminophen (Tylenol) 650 mg PO Q6H PRN PRN Reason: Pain Stop: 05/06/19 08:50 Aspirin (Ecotrin Ectab) 81 mg PO HS [facility] Stop: 05/05/19 20:59 Last Admin: 04/06/19 20:56 Dose: 81 mg Documented by: Atorvastatin Calcium (Lipitor) 40 mg PO QAM [facility] Stop: 05/06/19 08:59 Last Admin: 04/07/19 08:21 Dose: 40 mg Documented by: Enalapril Maleate (Vasotec) 40 mg PO HS [facility] Stop: 05/05/19 20:59 Last Admin: 04/06/19 20:56 Dose: 40 mg Documented by: Fish Oil ([place]-3 (Purified Fish Oil)) 1 gm PO TID [facility] Stop: 05/05/19 13:59 Last Admin: 04/07/19 08:21 Dose: 1 gm Documented by: Heparin Sodium (Porcine) (Heparin Sodium (Porcine)) 5,000 units SQ Q12 [facility] Stop: 05/05/19 20:59 Last Admin: 04/07/19 08:23 Dose: 5,000 units Documented by: Sodium Chloride (Nss) 500 mls @ 80 mls/hr IV .Q6H15M [facility] Stop: 05/08/19 00:04 Multivitamins/Minerals (Caltrate Plus) 1 tab PO QAM [facility] Stop: 05/06/19 08:59 Last Admin: 04/07/19 09:07 Dose: 1 tab Documented by: Multivitamins/Minerals (Multivitamin W/ Minerals Tab) 1 tab PO QAM [facility] Stop: 05/06/19 08:59 Last Admin: 04/07/19 08:21 Dose: 1 tab Documented by: (1) Syncope Syncope type: unspecified Qualified Code(s): R55 - Syncope and collapse
--- NOTE | 2019-04-07 17:50 | Hospitalist Progress Note ---
Date of Service April 07, 2019 Assessment & Plan (1) Bradyarrhythmia: Symptomatic bradycardia Sick sinus syndrome secondary to SA josef dysfunction Near-syncope --ECHO:LV chamber size, with mild concentric LVH, normal LV systolic function, EF 60 to 65%. No segmental left ventricular wall motion abnormalities. Grade 1 diastolic dysfunction. Aortic valve sclerosis mild, without significant aortic valvular stenosis. --Lyme screen: Negative Avoid AV josef blocking agents Monitor on telemetry Appreciate cardiology input N.p.o. after midnight Possible pacemaker placement tomorrow Pacer pads at bedside Currently asymptomatic (2) Syncope: Recent syncopal episode CT head from 04/03/19:There is no hemorrhage, mass effect, or evidence of acute territorial ischemia by CT criteria. Carotid Doppler:Atherosclerosis without hemodynamically significant stenosis in the carotid arteries. Systemic hypertension. Management as above Chlorthalidone currently held (3) Hypertension: Chlorthalidone discontinued Ramipril 10 mg has been transitioned to enalapril 40 mg Monitor and adjust blood pressure medications as needed (4) High cholesterol: Continue statin DVT Px: SQ Heparin CODE STATUS Full Code Disposition Expect to discharge home when medically stable Subjective Patient is seen and examined at bedside No new complaints Currently asymptomatic Denies any chest pain, shortness of breath, dizziness, nausea, abdominal pain N.p.o. after midnight for possible pacemaker placement tomorrow Review of Systems Review of Systems: All systems reviewed & are unremarkable except as noted in HPI & below Physical Exam Physical Exam: Physical Exam: Vitals signs as noted above General Appearance:Moderately built and nourished, no apparent distress Head: normocephalic, Atraumatic Eyes: normal inspection, EOMI Neck: supple, Trachea midline Respiratory/Chest: Normal breath sounds, CTA Cardiovascular: S1, S2, No murmur, +Bradycardia Abdomen/GI:Soft, Non tender, Bowel sounds present Extremities/Musculoskelatal:normal inspection, no edema Neurologic/Psych:AAOX3, grossly no focal neurological deficits Skin: normal color, warm Results & Data Vital Signs (Past 12 Hours) Vital Signs Temp Pulse Resp BP Pulse Ox 04/07/19 15:44 36.5 C 47 L 18 137/71 97 04/07/19 11:33 36.7 C 52 L 18 127/63 98 04/07/19 07:16 36.9 C 46 L 18 111/51 L 97 Laboratory Results [facility] 04/07/19 05:56 Sodium 139 Potassium 3.9 Chloride 106 Carbon Dioxide 29 BUN 16 Creatinine 1.15 Glucose 112 H Calcium 9.2 (1) Syncope Syncope type: unspecified Qualified Code(s): R55 - Syncope and collapse
[2019-04-07] MEDS: ENALAPRIL MALEATE 10 MG TAB PO SCH (21:01)
[2019-04-07] MEDS: ASPIRIN 81 MG ECTAB PO SCH (21:01)
[2019-04-08] MEDS: SODIUM CHLORIDE 0.9% 500 ML IV SCH ×3 (00:14→14:27)
[2019-04-08 07:01] LABS: Hematocrit (blood only) 39.7 % (42-52); Hemoglobin 12.9 g/dL (14.0-18.0); Mean Corpuscular Hemoglobin 25.5 pg (25-34); Mean Corpuscular Hgb Conc 32.5 g/dL (32-36); Mean Corpuscular Volume 78.5 fL (80-100); Mean Platelet Volume 9.8 fL (7.4-10.4); Platelet Count 137 K/uL (130-400); RDW Coefficient of Variation 14.7 % (11.5-14.5); RDW Standard Deviation 41.3 fL (36.4-46.3); Red Blood Count 5.06 M/uL (4.7-6.1); White Blood Count 5.78 K/uL (4.8-10.8)
[2019-04-08] MEDS: CALCIUM 600MG + VIT D 400 IU TAB PO SCH (08:38)
[2019-04-08] MEDS: HEPARIN SOD 5,000 UNIT/0.5 ML VIAL SQ SCH ×2 (08:39→20:54)
[2019-04-08] MEDS: CEROVITE ADV FORMULA TAB PO SCH (08:39)
[2019-04-08] MEDS: OMEGA-3 (PURIFIED FISH OIL) 1 GM CAP PO SCH ×3 (08:39→20:52)
[2019-04-08] MEDS: ATORVASTATIN 40 MG TAB PO SCH (08:39)
--- NOTE | 2019-04-08 09:15 | Cardiology Consultation ---
Date of Consultation April 08, 2019 Assessment & Plan (1) Symptomatic bradycardia: Patient has had syncope. The patient does have bradycardia and resting heart rates in the 30s while awake. There has not been a clear correlation between arrhythmia and syncope, but his episodes are certainly concerning. The seem to happen fairly rapidly. There is very little prodrome. Afterwards he feels well with the exception of any injury he may have sustained. There was some concern regarding orthostatic hypotension and that seems a plausible explanation for the initial episodes, but his more recent episodes do not involve a change in position. He has preserved LV systolic function and no symptoms consistent with coronary disease which suggests a low likelihood of more malignant arrhythmias. He has an indication for permanent pacing due to his resting bradycardia. His unexplained syncope in the setting of significant bradycardia also supports pacemaker implantation. I did describe to the patient the possibility that this will not alleviate all of his symptoms. There is the possibility that there is an alternate, unidentified etiology for his episodes. However, we did discuss the procedure, its risks, benefits and alternatives. He is worried about additional episodes or injury with episodes. I think this is a real consideration given what he described during the 1st to episodes. We will plan on proceeding with dual-chamber permanent pacemaker later today. History of Present Illness Reason for Consultation: Syncope, bradycardia Requesting Physician: Adam Attending Physician: Luciano Mayers MD History of Present Illness The patient is a 73-year-old gentleman without a history of cardiac disease who was admitted after an episode of presyncope. Patient states that over the past month he did suffered 2 episodes of acute syncope. Both of these episodes occurred in the evening. They seem to occur when he was getting up from bed and using the restroom. On both occasions he had very little prodrome associated with the episodes. While he did not suffer severe injury, he did hit his head on 1 occasion and damaged his drywall on another. On the day of admission the patient had another episode of presyncope. This involved a sense of dizziness and lightheadedness while sitting in a car. Patient was able to drive home and eventually sought medical attention. He did not lose consciousness with that episode. Since admission he has felt well. He did not report other episodes of dizziness or lightheadedness. He currently does not have symptoms associated with changes in position. He had been on chlorthalidone. Initially his episode was attributed to orthostatic hypotension. However, his dose was reduced and had another episode of syncope. His most recent episode of presyncope is not characteristic of orthostatic hypotension. He is an otherwise active individual who exercises regularly. He does not report limitations associated with exercise such as dyspnea or chest discomfort. He has not had dizziness associated with exercise. No new exercise intolerance. Allergies Allergy/AdvReac Type Severity Reaction Status Date / Time Penicillins Allergy Intermediate Hives Verified 04/05/19 10:15 Home Medications Home Medications Medication Instructions Recorded Confirmed Type aspirin 81 mg PO HS 01/31/19 04/05/19 History atorvastatin 40 mg PO QAM 01/31/19 04/05/19 History calcium carbonate-vitamin D3 1 cap PO QAM 01/31/19 04/05/19 History [Calcium 600 + D(3)] chlorthalidone 25 mg PO QAM 01/31/19 04/05/19 History np-wow-natlt acid-lutein [Centrum 1 tab PO QAM 01/31/19 04/05/19 History Silver] omega 2-sog-gxz-fish oil [Fish Oil] 1 cap PO TID 01/31/19 04/05/19 History ramipril 10 mg PO HS 01/31/19 04/05/19 History naproxen-diphenhydramine [Aleve PM] 1 tab PO PM 04/03/19 04/05/19 History Patient History Medical History Bradycardia (Acute) High cholesterol Hypertension Family History Other No significant past medical history Social History Preferred Language: Urdu Communication Ability: Effective Beliefs That Will Affect Care: Orthodox, Spiritual and Cultural Current Living Situation: Spouse Other Information That Helps Us Care for You: No Feels Safe at Home: Yes Safety Concerns: Feels Safe At This Time Smoking Status: Former smoker Hx Alcohol Use: Yes Alcohol type: wine Hx Substance Use: No Review of Systems Review of Systems: All systems reviewed & are unremarkable except as noted in HPI & below No sense of palpitation. Some sleep disturbance but formally tested for sleep apnea which he does not have. Physical Exam Physical Exam: The patient is alert and oriented. Mood and affect appeared normal. He answered all questions appropriately. HEENT: Pupils are equal and reactive to light and accommodation. Extraocular movements are intact. The sclerae are anicteric. Neuro: Cranial nerves intact Neck: Patient's neck is supple. He has palpable carotid pulses bilaterally without bruits on auscultation. There is no evidence of jugular venous distention. The thyroid is not enlarged. Lungs: Clear to auscultation bilaterally. He has good air movement without use of accessory muscles. No rales wheezes or rhonchi. Cardiac: Heart demonstrates a regular rate and rhythm. Normal S1 and S2. No murmurs on examination. Pulses: The patient has palpable radial pulses bilaterally that are equal in intensity Extremities: There was no evidence of hypoperfusion. There is no cyanosis or clubbing. There is no edema. Skin: I did not appreciate any rashes on examination today. Results & Data Vital Signs (Past 12 Hours) Vital Signs Temp Pulse Resp BP Pulse Ox 04/08/19 06:56 36.7 C 41 L 18 120/68 97 04/08/19 04:28 36.7 C 47 L 18 107/61 95 04/07/19 23:46 36.6 C 46 L 18 115/67 95 Laboratory Results Abnormal Lab Results 04/08/19 06:42 WBC 5.78 RBC 5.06 Hgb 12.9 L Hct 39.7 L MCV 78.5 L MCH 25.5 MCHC 32.5 RDW Std Deviation 41.3 RDW Coeff of Anupam 14.7 H Plt Count 137 MPV 9.8 Diagnostic Findings Performed on 04/05/2019 revealed preserved LV systolic function. Mild LVH. Stage I diastolic dysfunction. Aortic sclerosis without stenosis. ECG Additional Comments: I reviewed his EKGs. Normal sinus rhythm with narrow complex QRS. One EKG with bradycardia and first-degree AV block PG Care Time/CCT Total # of Minutes Spent Total Time Spent with Patient: Total time spent is greater than 50% in coordination of care (as documented) at patient's floor/unit and/or counseling patient:
--- NOTE | 2019-04-08 09:16 | Pre Anesthesia Assessment ---
Date of Service April 08, 2019 Pre Sedation Assessment Vital Signs Temp Pulse Resp BP Pulse Ox 04/08/19 06:56 36.7 C 41 L 18 120/68 97 04/08/19 04:28 36.7 C 47 L 18 107/61 95 04/07/19 23:46 36.6 C 46 L 18 115/67 95 04/07/19 19:23 36.7 C 45 L 20 132/70 96 04/07/19 15:44 36.5 C 47 L 18 137/71 97 04/07/19 11:33 36.7 C 52 L 18 127/63 98 Cardiovascular + bradycardic Respiratory + respiratory effort normal Pre-Sedation Airway Assessment Smoking Status: Former smoker Hx Sleep Apnea: No Hx Difficult Intubation: No Short, Thick Neck: No Thyromental Distance: > or= 3.5 Finger Breadths Oral Cavity: + WNL Mallampati Class: III ASA: ASA3 Procedure Planning Contraindications for Sedation: none Current Medications Reviewed: Yes Notes The planned sedation has been discussed with the patient. Informed Consent was obtained. I have identified the patient, determined the appropriateness of sedation and have assessed the patient immediately prior to the procedure. All medicine(s) and interventions are by my order.
--- NOTE | 2019-04-08 11:21 | Cardiology Progress Note ---
Date of Service April 08, 2019 Assessment & Plan (1) Sick sinus syndrome due to SA node dysfunction: (2) Syncope: The patient will be having a permanent pacemaker implanted later this morning. Otherwise he is doing well. Subjective Electrophysiology consult appreciated. The patient will be undergoing a permanent pacemaker later today. All questions were answered. Review of Systems Review of Systems: All systems reviewed & are unremarkable except as noted in HPI & below Nothing additional to add. Physical Exam Physical Exam: General: no acute distress and stated age Head: normocephalic, no masses, lesions, tenderness or abnormalities Eyes: conjunctiva are pink and non-injected, sclera clear Neck: supple, no adenopathy, no bruits, normal jugular venous pulse, no hepatojugular reflux Chest: normal shape and normal respiratory effort Lungs: clear to auscultation and percussion Cardiac Exam: - regular rate & rhythm, no murmurs gallops or rubs - normal S1, normal S2 Pulses: 2(+) throughout Abdomen: abdomen soft, non-tender, no abnormal masses and no hepatosplenomegaly Musculoskeletal: no gait disturbance, no joint inflammation, no deforming arthritis Extremities: no edema and no cyanosis Neuro: grossly normal exam Results & Data Vital Signs (Past 12 Hours) Vital Signs Temp Pulse Resp BP Pulse Ox 04/08/19 10:40 36.7 C 48 L 19 135/71 97 04/08/19 06:56 36.7 C 41 L 18 120/68 97 04/08/19 04:28 36.7 C 47 L 18 107/61 95 04/07/19 23:46 36.6 C 46 L 18 115/67 95 Laboratory Results Laboratory Results - last 24 hr 04/08/19 06:42 WBC 5.78 RBC 5.06 Hgb 12.9 L Hct 39.7 L MCV 78.5 L MCH 25.5 MCHC 32.5 RDW Std Deviation 41.3 RDW Coeff of Anupam 14.7 H Plt Count 137 MPV 9.8 Medications Administered Current Inpatient Medications Acetaminophen (Tylenol) 650 mg PO Q6H PRN PRN Reason: Pain Stop: 05/06/19 08:50 Aspirin (Ecotrin Ectab) 81 mg PO HS CAROL Stop: 05/05/19 20:59 Last Admin: 04/07/19 21:01 Dose: 81 mg Documented by: Atorvastatin Calcium (Lipitor) 40 mg PO QAM CAROL Stop: 05/06/19 08:59 Last Admin: 04/08/19 08:39 Dose: 40 mg Documented by: Enalapril Maleate (Vasotec) 40 mg PO HS CAROL Stop: 05/05/19 20:59 Last Admin: 04/07/19 21:01 Dose: 40 mg Documented by: Fish Oil ([place]-3 (Purified Fish Oil)) 1 gm PO TID CAROL Stop: 05/05/19 13:59 Last Admin: 04/08/19 08:39 Dose: 1 gm Documented by: Heparin Sodium (Porcine) (Heparin Sodium (Porcine)) 5,000 units SQ Q12 CAROL Stop: 05/05/19 20:59 Last Admin: 04/08/19 08:39 Dose: Not Given Documented by: Sodium Chloride (Nss) 500 mls @ 80 mls/hr IV .Q6H15M [facility] Stop: 05/08/19 00:04 Last Admin: 04/08/19 07:36 Dose: 80 mls/hr Documented by: Multivitamins/Minerals (Caltrate Plus) 1 tab PO QAM [facility] Stop: 05/06/19 08:59 Last Admin: 04/08/19 08:38 Dose: 1 tab Documented by: Multivitamins/Minerals (Multivitamin W/ Minerals Tab) 1 tab PO QAM [facility] Stop: 05/06/19 08:59 Last Admin: 04/08/19 08:39 Dose: 1 tab Documented by: (1) Syncope Syncope type: unspecified Qualified Code(s): R55 - Syncope and collapse
[2019-04-08] MEDS ORDERED: BACITRACIN INJ 50,000 UNIT VIAL ONE (11:46)
[2019-04-08] MEDS ORDERED: LIDOCAINE HCL 1% 20 ML VIAL ONE (11:46)
[2019-04-08] MEDS ORDERED: BUPIVACAINE 0.25% 30 ML VIAL ONE (11:46)
[2019-04-08] MEDS ORDERED: CLINDAMYCIN PHOS 300 MG/2 ML VIAL ONE (11:51)
[2019-04-08] MEDS ORDERED: MIDAZOLAM HCL 5 MG/ML 1 ML VIAL ONE (11:58)
[2019-04-08] MEDS ORDERED: fentaNYL citrate 100 MCG/2 ML VIAL ONE (11:58)
[2019-04-08] MEDS ORDERED: CEFAZOLIN 250 MG/ML 1 GM VIAL ONE (12:11)
--- NOTE | 2019-04-08 13:16 | Procedure Note ---
Procedure Note Date of Service April 08, 2019 Note Procedure performed: Implantation of dual-chamber permanent pacemaker Staff lan/wan engineer: Ankit Stewart MD Indication: The patient is a 73-year-old gentleman admitted for syncope. Patient was noted to have significant resting bradycardia and heart rates in the 30s while awake. He was felt to be a good candidate for dual-chamber pacemaker implant due to symptomatic nonreversible sinus node dysfunction. Dual-chamber device was selected is currently in sinus rhythm and wish to maintain AV synchrony. Procedure in detail: The patient was informed of the risks benefits and alternatives to the intended procedure and she wished to proceed. He was taken to the electrophysiology suite in a fasting state. A preoperative antibiotic had been administered. The patient was monitored electrocardiographically throughout today's procedure and conscious sedation was administered per protocol. The left upper pectoral area is prepped and draped in usual sterile fashion. This area was anesthetized using subcutaneous administration of a xylocaine solution. An incision was made at this site and carried down to the prepectoralis fascia using sharp dissection. Electrocautery was also employed for dissection as well as for hemostasis. A device pocket was fashioned tissues above the pectoralis muscle. Subsequent to this maneuver the left axillary vein was accessed using modified Seldinger technique. Sheaths were placed over guidewires at this site and used to facilitate passage of the pacing leads to the respective chambers under fluoroscopic guidance. This included right atrial and right ventricular leads. Adequate sensing and threshold parameters were obtained prior to Active fixation of the leads to the endocardial surface. The proximal portion leads were then sutured the prepectoral fascia using nonabsorbable suture. The device pocket was irrigated with antibiotic solution. The leads were then attached to the device. The device and leads were then placed in the pocket and pocket was closed in 3 layers of absorbable suture. Steri-Strips and sterile dressing were applied. The device was tested noninvasively prior to conclusion the procedure. The patient tolerated procedure well there no immediate complications. Equipment used: New pulse generator: [employer]. Model number: [id number] serial number [id number] Right atrial lead: [employer]. Model number: 5076 serial number [id number] Right ventricular lead: [employer]. Model number: 5076 serial number [id number] Measured data: Right atrial lead: P waves measured 3.6 mV. Pacing threshold 0.8 V at 0.5 ms with pacing impedance of 761 ohms Right ventricular lead: R waves measured 9.3 mV. Pacing threshold 0.7 V 0.5 ms with a pacing impedance of 725 ohms Impression: Successful implantation of dual-chamber permanent pacemaker Coding
--- NOTE | 2019-04-08 13:20 | Post Anesthesia Assessment ---
Date of Service April 08, 2019 Post Sedation Assessment Vital Signs Temp Pulse Resp BP Pulse Ox 04/08/19 10:40 36.7 C 48 L 19 135/71 97 04/08/19 06:56 36.7 C 41 L 18 120/68 97 04/08/19 04:28 36.7 C 47 L 18 107/61 95 04/07/19 23:46 36.6 C 46 L 18 115/67 95 04/07/19 19:23 36.7 C 45 L 20 132/70 96 04/07/19 15:44 36.5 C 47 L 18 137/71 97 Recovery Score Activity: Moves 4 extremities Respiration: Deep Breath/Cough Circulation: +/-20% PreAnes Value Consciousness: Fully Awake Oxygen Saturation: > 92% On Room Air Discharge Sedation Level of Care: Fast Track Phase II Post Sedation Plan On clinical assessment, the patient appears to have tolerated the sedation without complications. Patient is recovering as anticipated. Patient will continue to be monitored by nursing and may be discharged when sedation discharge criteria are met per below protocol. Upon Completions of procedure up to 15 minutes continue every 5 minute vital signs and the P.A.R. score; then discharge to a Phase I or Fast Track to Phase II per the following guidelines: * Discharge Patient to appropriate Phase II area if PAR is 8 or greater or return to pre- procedure baseline. The post - procedure orders will be as directed. * If PAR score is less than 8 or not return to pre-procedure baseline then patient will follow Phase I monitoring till PAR is reached for Phase II. The Phase I may be done in procedure room or may call to secure a Phase I area. * If naloxone or flumazenil are used for reversal, hold in Phase I for continued monitoring from when last reversal dose was given for a minimum of 60 minutes or longer pending the nurse and/or physician discretion of patient condition before discharge to Phase II. Please call the Sedation Physician to re-evaluate and complete post-note for discharge to Phase II area. Do NOT discharge from procedure sedation or Phase 1 until post- sedation evaluation note is complete by procedure /sedation MD Sedation Discharge Instructions to be given to the patient at discharge to home.
[2019-04-08] MEDS ORDERED: OXYCODONE HCL IR 5 MG TAB (IMMEDIATE RELEASE) PO PRN (13:33)
[2019-04-08] MEDS ORDERED: ACETAMINOPHEN 325 MG TAB PO PRN (13:33)
[2019-04-08] MEDS ORDERED: Nursing to Pharmacy Communication ONE (14:27)
--- NOTE | 2019-04-08 15:39 | Hospitalist Progress Note ---
Date of Service April 08, 2019 Assessment & Plan (1) Bradyarrhythmia: Symptomatic bradycardia Sick sinus syndrome secondary to SA josef dysfunction Near-syncope --ECHO:LV chamber size, with mild concentric LVH, normal LV systolic function, EF 60 to 65%. No segmental left ventricular wall motion abnormalities. Grade 1 diastolic dysfunction. Aortic valve sclerosis mild, without significant aortic valvular stenosis. --Lyme screen: Negative Avoid AV josef blocking agents Monitor on telemetry Appreciate cardiology input Planned for Pacemaker placement today by EP (2) Syncope: Recent syncopal episode CT head from 04/03/19:There is no hemorrhage, mass effect, or evidence of acute territorial ischemia by CT criteria. Carotid Doppler:Atherosclerosis without hemodynamically significant stenosis in the carotid arteries. Systemic hypertension. Management as above (3) Hypertension: Chlorthalidone discontinued Ramipril 10 mg has been transitioned to enalapril 40 mg Monitor (4) High cholesterol: Continue statin DVT Px: SQ Heparin CODE STATUS Full Code Disposition Expect to discharge home when medically stable Subjective Patient is seen and examined at bedside this morning Planned to have a pacemaker placement today No new complaints Denies any chest pain, shortness of breath, dizziness, nausea, abdominal pain Review of Systems Review of Systems: All systems reviewed & are unremarkable except as noted in HPI & below Physical Exam Physical Exam: Physical Exam: Vitals signs as noted above General Appearance:Moderately built and nourished, no apparent distress Head: normocephalic, Atraumatic Eyes: normal inspection, EOMI Neck: supple, Trachea midline Respiratory/Chest: Normal breath sounds, CTA Cardiovascular: S1, S2, No murmur, +Bradycardia Abdomen/GI:Soft, Non tender, Bowel sounds present Extremities/Musculoskelatal:normal inspection, no edema Neurologic/Psych:AAOX3, grossly no focal neurological deficits Skin: normal color, warm Results & Data Vital Signs (Past 12 Hours) Vital Signs Temp Pulse Pulse Resp BP Pulse Ox 04/08/19 15:15 36.4 C L 62 16 116/74 96 04/08/19 14:48 60 16 135/70 96 04/08/19 14:18 60 16 126/72 96 04/08/19 14:03 60 18 130/76 94 04/08/19 13:48 36.5 C 61 18 135/79 94 04/08/19 13:29 59 L 16 149/79 H 95 04/08/19 13:15 60 16 141/79 H 95 04/08/19 10:40 36.7 C 48 L 19 135/71 97 04/08/19 06:56 36.7 C 41 L 18 120/68 97 04/08/19 04:28 36.7 C 47 L 18 107/61 95 Laboratory Results Short CBC 04/08/19 Range/Units 06:42 WBC 5.78 (4.8-10.8) K/uL Hgb 12.9 L (14.0-18.0) g/dL Hct 39.7 L (42-52) % Plt Count 137 (130-400) K/uL (1) Syncope Syncope type: unspecified Qualified Code(s): R55 - Syncope and collapse
[2019-04-08] MEDS: CEFAZOLIN 2000MG 2,000 MG/15 ML SYR IV SCH (20:51)
[2019-04-08] MEDS: ENALAPRIL MALEATE 10 MG TAB PO SCH (20:52)
[2019-04-08] MEDS: ASPIRIN 81 MG ECTAB PO SCH (20:52)
[2019-04-09] MEDS ORDERED: LACTATED RINGER'S 1,000 ML IV ONE (01:55)
[2019-04-09 02:20] LABS: Basophils # (auto) 0.02 K/uL (0-0.2); Basophils % (auto) 0.3 %; Eosinophils % (auto) 1.3 %; Hematocrit (blood only) 40.6 % (42-52); Hemoglobin 13.2 g/dL (14.0-18.0); Immature Granulocytes # (auto) 0.01 K/uL (0.00-0.02); Immature Granulocytes % (auto) 0.1 %; Lymphocytes # (auto) 1.89 K/uL (1.2-3.4); Lymphocytes % (auto) 23.7 %; Mean Corpuscular Hemoglobin 25.8 pg (25-34); Mean Corpuscular Hgb Conc 32.5 g/dL (32-36); Mean Corpuscular Volume 79.5 fL (80-100); Mean Platelet Volume 9.7 fL (7.4-10.4); Monocytes # (auto) 0.87 K/uL (0.11-0.59); Monocytes % (auto) 10.9 %; Neutrophils % (auto) 63.7 %; Platelet Count 128 K/uL (130-400); RDW Coefficient of Variation 14.5 % (11.5-14.5); RDW Standard Deviation 41.7 fL (36.4-46.3); Red Blood Count 5.11 M/uL (4.7-6.1); White Blood Count 7.99 K/uL (4.8-10.8)
[2019-04-09 02:41] LABS: BUN Creatinine Ratio 18.8 (10-20); Creatinine Clr Calc Pharmacy 67.8 ml/min; Est GFR (African American) 66.3; Est GFR (Non-African American) 57.2; Potassium 3.8 mmol/L (3.5-5.1)
[2019-04-09] MEDS ORDERED: POTASSIUM CHLORIDE 20 MEQ TABCR PO STA (02:48)
[2019-04-09] MEDS: CEFAZOLIN 2000MG 2,000 MG/15 ML SYR IV SCH (03:36)
--- NOTE | 2019-04-09 07:28 | XRay Report ---
XR chest 2V PA/lateral CLINICAL HISTORY: 73 years-old Male presenting with EXACT TIME ORDERED Evaluate for pneumothorax and l. TECHNIQUE: PA and lateral views of the chest were obtained. COMPARISON: 04/05/2019. FINDINGS: Interval placement of a left subclavian 2-lead pacer with leads to the right atrium and right ventric ular apex. Leads are appropriately positioned. Atherosclerosis of the aortic arch. Cardiac silhouette top normal in size. Numerous external leads overlie the mediastinum degrading evaluation. No focal o pacity. No large effusion or pneumothorax. Degenerative changes of the thoracic spine. Mildly exagger ated thoracic kyphosis without a focal compression deformity. Upper abdomen normal. IMPRESSION: 1. Appropriately positioned 2-lead left subclavian pacer. No pneumothorax. Electronically signed by: Donnie Ferrera M.D. 04/09/2019 7:27 AM
[2019-04-09] MEDS: CALCIUM 600MG + VIT D 400 IU TAB PO SCH (07:50)
[2019-04-09] MEDS: ATORVASTATIN 40 MG TAB PO SCH (07:50)
[2019-04-09] MEDS: CEROVITE ADV FORMULA TAB PO SCH (07:50)
[2019-04-09] MEDS: OMEGA-3 (PURIFIED FISH OIL) 1 GM CAP PO SCH ×2 (07:51→13:14)
[2019-04-09] MEDS ORDERED: HEPARIN SOD 5,000 UNIT/0.5 ML VIAL SQ SCH (09:00)
--- NOTE | 2019-04-09 10:14 | Cardiology Progress Note ---
Date of Service April 09, 2019 Assessment & Plan (1) Symptomatic bradycardia: Patient underwent successful implantation of dual-chamber permanent pacemaker yesterday without evident complication. He would be safe for discharge from that standpoint. He should refrain from lifting left arm above the shoulder behind the neck for 6 weeks. He should keep the wound dry in the Steri-Strips intact until follow-up next week. With regards to his episode last night. It is unclear whether all of his symptoms are related to bradycardia. He certainly appears to have an element of orthostatic hypotension. I did make his pacemaker slightly more aggressive with respect to changes in position this morning. Hopefully this will attenuate some of his symptoms. I did not at the rate drop feature is that do not feel that his episodes are vagally mediated. This could be tried in the future if he continues to have episodes of presyncope or syncope. Subjective This morning the patient reported an episode of presyncope associated with ambul ation last evening. This is very similar to the episode which prompted his admission. He did not report syncope. He had a sense of prodrome and sat down on the floor. He later moved to the bed. Symptoms eventually subsided. He reported his pulse being around the 60s around that time. He has not been ambulatory very much this morning. Review of Systems Review of Systems: Per HPI Physical Exam Physical Exam: Examination of the device implant site reveals mild ecchymosis. No significant erythema. No hematoma. No drainage. Results & Data Vital Signs (Past 12 Hours) Vital Signs Temp Pulse Pulse Resp BP Pulse Ox 04/09/19 07:51 37.2 C 60 18 133/77 95 04/09/19 03:35 36.4 C L 60 18 136/82 97 04/09/19 01:45 60 19 101/64 04/08/19 23:52 36.6 C 60 18 127/69 96 Laboratory Results Abnormal Lab Results 04/09/19 04/09/19 04/09/19 02:04 02:10 02:10 WBC 7.99 RBC 5.11 Hgb 13.2 L Hct 40.6 L MCV 79.5 L MCH 25.8 MCHC 32.5 RDW Std Deviation 41.7 RDW Coeff of Anupam 14.5 Plt Count 128 L MPV 9.7 Immature Gran % (Auto) 0.1 Neut % (Auto) 63.7 Lymph % (Auto) 23.7 [place] % (Auto) 10.9 Eos % (Auto) 1.3 Baso % (Auto) 0.3 Immature Gran # (Auto) 0.01 Neut # (Auto) 5.10 Lymph # (Auto) 1.89 [place] # (Auto) 0.87 H Eos # (Auto) 0.10 Baso # (Auto) 0.02 Sodium 137 Potassium 3.8 Chloride 104 Carbon Dioxide 27 Anion Gap 6.0 BUN 23 H Creatinine 1.25 Est Cr Clr Drug Dosing 67.8 Est GFR ( Amer) 66.3 Est GFR (Non-Af Amer) 57.2 BUN/Creatinine Ratio 18.8 Glucose 108 H POC Glucose 105 H Calcium 9.0 Magnesium 2.0 Heparin-PF4 Ab Screen 04/09/19 04:29 WBC RBC Hgb Hct MCV MCH MCHC RDW Std Deviation RDW Coeff of Anupam Plt Count MPV Immature Gran % (Auto) Neut % (Auto) Lymph % (Auto) [place] % (Auto) Eos % (Auto) Baso % (Auto) Immature Gran # (Auto) Neut # (Auto) Lymph # (Auto) [place] # (Auto) Eos # (Auto) Baso # (Auto) Sodium Potassium Chloride Carbon Dioxide Anion Gap BUN Creatinine Est Cr Clr Drug Dosing Est GFR ( Amer) Est GFR (Non-Af Amer) BUN/Creatinine Ratio Glucose POC Glucose Calcium Magnesium Heparin-PF4 Ab Screen Negative Diagnostic Findings Chest x-ray performed this morning revealed good lead placement without evidence of pneumothorax I performed a complete device interrogation which revealed normal sensing and threshold of both atrial ventricular leads. Normal device function.
--- NOTE | 2019-04-09 12:46 | Cardiology Progress Note ---
Date of Service April 09, 2019 Assessment & Plan (1) Sick sinus syndrome due to SA node dysfunction: (2) Syncope: The patient can be discharged today with outpatient follow-up. I have arranged for the patient to be enrolled in our pacemaker clinic and he is scheduled for a wound check. He also has a follow-up visit with Dr. Pack. Subjective The patient's had a little dizziness last night. His pacemaker was adjusted and he feels well this morning. He has no ongoing complaints. Review of Systems Review of Systems: All systems reviewed & are unremarkable except as noted in HPI & below Nothing additional to add. Physical Exam Physical Exam: General: no acute distress and stated age Head: normocephalic, no masses, lesions, tenderness or abnormalities Eyes: conjunctiva are pink and non-injected, sclera clear Neck: supple, no adenopathy, no bruits, normal jugular venous pulse, no hepatojugular reflux Chest: Pacemaker site looks good Lungs: clear to auscultation and percussion Cardiac Exam: - regular rate & rhythm, no murmurs gallops or rubs - normal S1, normal S2 Pulses: 2(+) throughout Abdomen: abdomen soft, non-tender, no abnormal masses and no hepatosplenomegaly Musculoskeletal: no gait disturbance, no joint inflammation, no deforming arthritis Extremities: no edema and no cyanosis Neuro: grossly normal exam Results & Data Vital Signs (Past 12 Hours) Vital Signs Temp Pulse Pulse Pulse Resp BP Pulse Ox 04/09/19 11:45 36.8 C 60 18 120/68 97 04/09/19 07:51 37.2 C 60 18 133/77 95 04/09/19 06:20 60 04/09/19 03:35 36.4 C L 60 18 136/82 97 04/09/19 01:45 60 19 101/64 Laboratory Results Laboratory Results - last 24 hr 04/09/19 04/09/19 04/09/19 02:04 02:10 02:10 WBC 7.99 RBC 5.11 Hgb 13.2 L Hct 40.6 L MCV 79.5 L MCH 25.8 MCHC 32.5 RDW Std Deviation 41.7 RDW Coeff of Anupam 14.5 Plt Count 128 L MPV 9.7 Immature Gran % (Auto) 0.1 Neut % (Auto) 63.7 Lymph % (Auto) 23.7 Bowie % (Auto) 10.9 Eos % (Auto) 1.3 Baso % (Auto) 0.3 Immature Gran # (Auto) 0.01 Neut # (Auto) 5.10 Lymph # (Auto) 1.89 Bowie # (Auto) 0.87 H Eos # (Auto) 0.10 Baso # (Auto) 0.02 Sodium 137 Potassium 3.8 Chloride 104 Carbon Dioxide 27 Anion Gap 6.0 BUN 23 H Creatinine 1.25 Est Cr Clr Drug Dosing 67.8 Est GFR ( Amer) 66.3 Est GFR (Non-Af Amer) 57.2 BUN/Creatinine Ratio 18.8 Glucose 108 H POC Glucose 105 H Calcium 9.0 Magnesium 2.0 Heparin-PF4 Ab Screen 04/09/19 04:29 WBC RBC Hgb Hct MCV MCH MCHC RDW Std Deviation RDW Coeff of Anupam Plt Count MPV Immature Gran % (Auto) Neut % (Auto) Lymph % (Auto) Bowie % (Auto) Eos % (Auto) Baso % (Auto) Immature Gran # (Auto) Neut # (Auto) Lymph # (Auto) Bowie # (Auto) Eos # (Auto) Baso # (Auto) Sodium Potassium Chloride Carbon Dioxide Anion Gap BUN Creatinine Est Cr Clr Drug Dosing Est GFR ( Amer) Est GFR (Non-Af Amer) BUN/Creatinine Ratio Glucose POC Glucose Calcium Magnesium Heparin-PF4 Ab Screen Negative Medications Administered Current Inpatient Medications Acetaminophen (Tylenol) 650 mg PO Q4H PRN PRN Reason: Mild pain (rating 1,2,3) Stop: 05/08/19 13:32 Last Admin: 04/08/19 20:49 Dose: 650 mg Documented by: Aspirin (Ecotrin Ectab) 81 mg PO HS [facility] Stop: 05/05/19 20:59 Last Admin: 04/08/19 20:52 Dose: 81 mg Documented by: Atorvastatin Calcium (Lipitor) [facility] [place] Stop: 05/06/19 08:59 Last Admin: 04/09/19 07:50 Dose: 40 mg Documented by: Enalapril Maleate (Vasotec) 40 mg PO HS [facility] Stop: 05/05/19 20:59 Last Admin: 04/08/19 20:52 Dose: 40 mg Documented by: Fish Oil ([place]-3 (Purified Fish Oil)) 1 gm PO TID [facility] Stop: 05/05/19 13:59 Last Admin: 04/09/19 07:51 Dose: 1 gm Documented by: Heparin Sodium (Porcine) (Heparin Sodium (Porcine)) 5,000 units SQ Q12 [facility] Stop: 05/09/19 08:59 Last Admin: 04/09/19 09:06 Dose: 5,000 units Documented by: Lactated Ringer's (Lr) 1,000 mls @ 60 mls/hr IV .[id number] ONE Stop: 04/09/19 18:34 Last Admin: 04/09/19 02:26 Dose: 60 mls/hr Documented by: Multivitamins/Minerals (Caltrate Plus) 1 tab PO QAM [facility] Stop: 05/06/19 08:59 Last Admin: 04/09/19 07:50 Dose: 1 tab Documented by: Multivitamins/Minerals (Multivitamin W/ Minerals Tab) 1 tab PO QAM [facility] Stop: 05/06/19 08:59 Last Admin: 04/09/19 07:50 Dose: 1 tab Documented by: Oxycodone HCl (Roxicodone Immediate Rel) 5 mg PO Q6 PRN PRN Reason: Pain Stop: 04/22/19 13:32 (1) Syncope Syncope type: unspecified Qualified Code(s): R55 - Syncope and collapse
--- NOTE | 2019-04-09 12:59 | Hospitalist Progress Note ---
Date of Service April 09, 2019 Assessment & Plan (1) Bradyarrhythmia: Symptomatic bradycardia Sick sinus syndrome secondary to SA josef dysfunction Near-syncope --ECHO:LV chamber size, with mild concentric LVH, normal LV systolic function, EF 60 to 65%. No segmental left ventricular wall motion abnormalities. Grade 1 diastolic dysfunction. Aortic valve sclerosis mild, without significant aortic valvular stenosis. --Lyme screen: Negative --S/P Implantation of dual-chamber permanent pacemaker POD #1 Avoid AV josef blocking agents Monitor on telemetry Appreciate cardiology input (2) Syncope: Recent syncopal episode CT head from 04/03/19:There is no hemorrhage, mass effect, or evidence of acute territorial ischemia by CT criteria. Carotid Doppler:Atherosclerosis without hemodynamically significant stenosis in the carotid arteries. Systemic hypertension. Management as above (3) Hypertension: Chlorthalidone discontinued Ramipril 10 mg has been transitioned to enalapril 40 mg Monitor (4) High cholesterol: Continue statin DVT Px: SQ Heparin CODE STATUS Full Code Disposition Plan to discharge home today Subjective Patient is seen and examined at bedside this morning Had transient dizziness overnight Doing well this morning Discussed with cardiology today Denies any chest pain, SOB, nausea, abdominal pain Offers no other complaints Review of Systems Review of Systems: All systems reviewed & are unremarkable except as noted in HPI & below Physical Exam Physical Exam: Physical Exam: Vitals signs as noted above General Appearance:Moderately built and nourished, no apparent distress Head: normocephalic, Atraumatic Eyes: normal inspection, EOMI Neck: supple, Trachea midline Respiratory/Chest: Normal breath sounds, CTA, +Pacemaker Cardiovascular: S1, S2, No murmur Abdomen/GI:Soft, Non tender, Bowel sounds present Extremities/Musculoskelatal:normal inspection, no edema Neurologic/Psych:AAOX3, grossly no focal neurological deficits Skin: normal color, warm Results & Data Vital Signs (Past 12 Hours) Vital Signs Temp Pulse Pulse Pulse Resp BP Pulse Ox 04/09/19 11:45 36.8 C 60 18 120/68 97 04/09/19 07:51 37.2 C 60 18 133/77 95 04/09/19 06:20 60 04/09/19 03:35 36.4 C L 60 18 136/82 97 04/09/19 01:45 60 19 101/64 Laboratory Results Short CBC 11/26/19 Range/Units 02:10 WBC 7.99 (4.8-10.8) K/uL Hgb 13.2 L (14.0-18.0) g/dL Hct 40.6 L (42-52) % Plt Count 128 L (130-400) K/uL [facility] 04/09/19 02:10 Sodium 137 Potassium 3.8 Chloride 104 Carbon Dioxide 27 BUN 23 H Creatinine 1.25 Glucose 108 H Calcium 9.0 (1) Syncope Syncope type: unspecified Qualified Code(s): R55 - Syncope and collapse
--- NOTE | 2019-04-09 13:22 | Discharge Summary ---
Date of Service April 09, 2019 Admission HPI Per Admitting Provider He is a 73-year-old male with significant past medical history of hypertension, hyperlipidemia and esophageal reflux apparently has been complaining of syncopal episode for the last 2 months. He suffered initial syncope and collapse about 2 months ago when he was getting out of bed and going to the bathroom at the middle of the night. He was evaluated by his PCP following that and nothing significant noted. He has had another episode of syncope about 2 days ago and today while he was sitting at a car to look sharp he felt dizzy with sweating, he went home and then later on came to emergency room for further evaluation of his problem. He was noted to have very low heart rate at lower 40s today. He denies any chest pain and/or shortness of breath with the episodes of syncope, denies any headache or blurred vision no numbness or tingling involving any of the extremities, denies any abdominal pain nausea and vomiting, denies any problem with his urine and her bowel habit. He was hemodynamically stable with blood pressure on the upper side and heart rate around upper 40s and he was admitted to telemetry unit for continuation of care. Admission Exam Per Admitting Provider Physical Exam: Vitals signs as noted above General Appearance:Morbidly Obese, no apparent distress Head: normocephalic, Atraumatic Neck: +Trach Eyes: normal inspection, EOMI Neck: supple, Trachea midline Respiratory/Chest: Decreased breath sounds, CTA Cardiovascular: S1, S2, No murmur Abdomen/GI:Soft, Non tender, Bowel sounds present Extremities/Musculoskelatal:normal inspection, 1-2+ B/L LE edema, R groin/thigh--erythema improving, tender Neurologic/Psych:AAOX2, grossly no focal neurological deficits, follows commands Skin: normal color, warm Principal Diagnosis Symptomatic bradycardia Syncope Discharge Data Allergies Allergy/AdvReac Type Severity Reaction Status Date / Time Penicillins Allergy Intermediate Hives Verified 04/05/19 10:15 Consultations 04/05/19 11:01 ED Decision to Admit Stat 04/05/19 13:39 Consult Cardiology Routine 04/07/19 12:30 Consult Cardiac Electrophysiology Routine Procedures Performed Operation Date: 04/08/19 12:30 Actual Procedures p ICD Insertion Single or Dual - Hector Stewart MD --ECHO:LV chamber size, with mild concentric LVH, normal LV systolic function, EF 60 to 65%. No segmental left ventricular wall motion abnormalities. Grade 1 diastolic dysfunction. Aortic valve sclerosis mild, without significant aortic valvular stenosis. Ordered Studies 04/05/19 12:00 US carotid doppler BI Routine 04/08/19 12:24 CL Cath Imgs for PACS use only Routine Hospital Course (1) Bradyarrhythmia: Symptomatic bradycardia Sick sinus syndrome secondary to SA josef dysfunction Near-syncope --ECHO:LV chamber size, with mild concentric LVH, normal LV systolic function, EF 60 to 65%. No segmental left ventricular wall motion abnormalities. Grade 1 diastolic dysfunction. Aortic valve sclerosis mild, without significant aortic valvular stenosis. --Lyme screen: Negative --S/P Implantation of dual-chamber permanent pacemaker POD #1 Avoid AV josef blocking agents Monitor on telemetry Appreciate cardiology input (2) Syncope: Recent syncopal episode CT head from 04/03/19:There is no hemorrhage, mass effect, or evidence of acute territorial ischemia by CT criteria. Carotid Doppler:Atherosclerosis without hemodynamically significant stenosis in the carotid arteries. Systemic hypertension. Management as above (3) Hypertension: Chlorthalidone discontinued Ramipril 10 mg has been transitioned to enalapril 40 mg Monitor (4) High cholesterol: Continue statin DVT Px: SQ Heparin CODE STATUS Full Code Disposition Plan to discharge home today Total Time Total Time Spent Total Time Spent (In Minutes): 37 minutes Total Time Includes: Examination of the Patient, Discharge Planning, Medication Reconciliation, Communication With Other Providers and Other Discharge Plan Discharge Items Patient Disposition: Home - Self-Care Reason For Visit: SYMPTOMATIC, BRADYARRHYTHMIA Discharge Diagnosis: Symptomatic bradycardia Syncope Activity: Per Instructions section Exercise/Sports: Gradually increase as tolerated Non-emergency contact: Primary Care Provider and Steel Spar Operator Call non-emergency contact if: you have any medication questions, your symptoms worsen, your pain is not controlled, your pain is worsening, your pain is unusual for you, your pain is concerning for you, you have a fever, your wound has increased redness, your wound has increased drainage and your wound pain has increased Follow-up/Referrals: Elysia Burkett DO [Primary Care Provider] - Diet: Heart Healthy Addtl Attending Provider Instructions: Follow-up with your primary care physician Dr. Ontiveros on April 15, 2019 at 10:45 AM Follow-up with your firebreak cutter Dr. Pack on April 26, 2019 at 10:45 AM Follow-up with pacemaker clinic for wound check as scheduled. Seek immediate medical attention if your symptoms reoccur or worsen ACTIVITY RECOMMENDATIONS: * Do not raise affected arm over head for 2 weeks. SPECIAL CARE INSTRUCTIONS: * If bleeding occurs, apply direct pressure to area for 5 minutes. * Call your doctor if you have severe pain, fever, drainage or bleeding at site. * Keep dressing on and dry for 48 hours then remove. * Keep any scheduled doctor's appointment. * Implant Card - hand held device with website information given. SKIN IRRITATION: * You may experience some redness and/or swelling in the area where radiation was administered. If any skin irritation occurs, please contact your family physician. FOLLOW UP VISIT: Keep any scheduled doctor appointments. Pending Studies at Discharge: No Stand-Alone Forms: My [facility], Smoking Cessation Medications and DC Order Prescriptions: New oxycodone 5 mg Tablet 5 mg PO Q8H PRN (Reason: pain) Qty: 9 RF: 0 Continued aspirin 81 mg Tablet,Delayed Release (Dr/Ec) 81 mg PO HS RF: 0 ramipril 10 mg Capsule 10 mg PO HS RF: 0 atorvastatin 40 mg Tablet 40 mg PO QAM RF: 0 omega [id number] oil [Fish Oil] 1,000 mg (120 mg-180 mg) Capsule 1 cap PO TID RF: 0 Centrum Silver 400-250 mcg Tablet,Chewable 1 tab PO QAM RF: 0 Calcium 600 + D(3) 600 mg calcium- 200 unit Capsule 1 cap PO QAM RF: 0 Discontinued chlorthalidone 25 mg Tablet 25 mg PO QAM RF: 0 Aleve PM 220-25 mg Tablet 1 tab PO PM RF: 0 Discharge Orders: Discharge Order (Routine); Ordered 04/09/19 Ordered By: Luciano Mayers Admission Data Admit Date/Time: 04/05/19 11:24 Attending Provider: Luciano Mayers Admit Provider: Owen Hernandez Primary Care Provider: Elysia Burkett Other Providers: Owen Hernandez ; Paul Pack ; Hector Stewart Other Interventions: Discharge Summary Assessment (RN) Last Done: 04/09/19 13:28 DC Date/Time DO NOT enter until pt leaves facility: 04/09/19 13:44
== END 2019-04-09 13:44 | disposition home or self-care (01) | DRG 244 ==
LOC: ED 09:17 → 2S 11:24 → SUATTDRO 11:24 → 2S 12:28
PROC: EPB.ICD (2019-04-08 12:30)

== ENCOUNTER 2020-04-15 08:42 | Observation (INO) ==
--- NOTE | 2020-04-15 09:09 | Emergency Department Note ---
Impression & Plan Vertigo, Cardiac pacemaker in situ, CKD (chronic kidney disease), stage III ED Provider Note NAME: NAZANIN ALEJO AGE: 74 SEX: M ARRIVES VIA: Walk-In INFORMANT: Patient, ED PROVIDER(S): Artem Steen MD CHIEF COMPLAINT: Dizziness / vertigo. PLAN: Disposition: Admit. MEDICAL DECISION MAKING: Patient is a pleasant 74-year-old gentleman with a past medical history of CKD, sick sinus syndrome status post pacemaker, hypertension, hyperlipidemia, BPH, GERD who presents emergency department with persistent vertigo/unsteadiness since last night which he reports occurred acutely when he was sitting in his chair and not moving his head around or looking around. He reports waking up this morning and feeling no significant improvement and he is barely able to walk without widening his gait for stability. He reports some mild nausea but denies vomiting. He denies any recent illness including denies fevers, chills, cough, congestion, vomiting, diarrhea, urinary symptoms. He reports a history of vertigo in the past which was managed and improved with physical therapy. On arrival patient is fatigued appearing but no acute distress, afebrile stable vital signs. He appears clinically dry. He does exhibit a broad-based gait when attempting to walk and has a positive Romberg sign. Otherwise he has no focal neuro deficits and has intact ylecvg-us-pjpf and alternating palms. EKG without overt acute ischemia. WBC, H/H and platelets within normal limits. Chemistry without acidosis. Electrolytes LFTs unremarkable. Troponin negative/undetectable. CT of the head and neck negative for ICH or severe narrowing or occlusion of large vessels. On reevaluation the patient felt somewhat improved however still unable to am bulate without a broad-based gait. He does report that his MRI previously has been MRI compatible and therefore he is agreeable with recommendation for admission for further treatment for refractory symptoms but also MRI to exclude central etiology. Case was discussed with Palmira Do [facility] PAC, with Dr. Boss, [facility] hospitalist who will evaluate the patient for admission. This patient was managed with the assistance of resident, Dr. Eric Hammond. I discussed the case with the resident, examined the patient, and confirm the findings and plan as documented in this note. Triage Nursing notes reviewed and agree them. Prior medical records reviewed Vital Signs: reviewed and remarkable for no significant abnormalities Differential diagnosis: Benign positional vertigo, dehydration, hypovolemia, anemia, tumor, infection, hypoglycemia, electrolyte abnormalities, cardiac sources, intracerebral event, toxicologic, neurologic, as well as other pathologies. ER treatment provided: See below. Diagnostics interpreted by me: ECG: Atrial paced, 71 bpm, no ectopy, no overt acute ischemia. Cardiac Monitoring: An order for continuous cardiac monitoring was placed and demonstrated Atrial paced, 71 bpm, no ectopy. Laboratory studies: See below Imaging studies: CT head/brain wo con CLINICAL HISTORY: dizziness , VERTIGO, POSSIBLE STROKE COMPARISON STUDY: 08/07/2019 TECHNIQUE: Axial CT of the brain is performed from the vertex to the skull base. IV contrast was not administered for this examination. A dose lowering technique was utilized adhering to the principles of ALARA. CT DOSE: 1322.98 mGy.cm FINDINGS: No intra or extra-axial mass lesions are visualized. There is no CT evidence of acute cortical infarction. There is no evidence of midline shift. There is no acute hemorrhage. No calvarial fractures are visualized. There are patchy white matter hypodensities likely on a small vessel basis. There is no evidence of pathologic ventricular dilatation. There is no evidence of acute sinusitis IMPRESSION: No acute intracranial findings -- HEAD CTA HISTORY: dizziness TECHNIQUE: Multiaxial CT images of the head were performed both before and after the intravenous administration of contrast to evaluate the major cerebral vessels. Maximum intensity projection images were also obtained. A dose lowering technique was utilized adhering to the principles of ALARA. COMPARISON: Head CTA 08/07/2019. FINDINGS: Visualized intracranial internal carotid arteries, distal vertebral arteries, and basilar artery are widely patent. There is no significant stenosis, occlusion, or aneurysm seen within the bilateral ACAs, MCAs, or chiropractor sole practitioner. The major dural venous sinuses are patent. There is a hypoplastic distal right vertebral artery. Persistent right posterior circulation which is considered to be a normal variant. IMPRESSION: No significant stenosis, occlusion, or aneurysm within the [place] of [place]. CT angio neck with con CLINICAL HISTORY: dizziness VERTIGO, POSSIBLE ACUTE STROKE. COMPARISON STUDY: August 07, 2019 TECHNIQUE: CT angiography was performed from the aortic arch to the skull base. MIP imaging was performed. The patient was scanned in a dynamic helical fashion during intravenous administration of 119 cc of Optiray 320. A dose lowering technique was utilized adhering to the principles of ALARA. CT DOSE: Technique: CT angiogram of the carotid and vertebral arteries was obtained using intravenous contrast and 3-D reconstruction. NASCET criteria was utilized. Findings: The right carotid revealed no evidence of aneurysm and no evidence of dissection. There is no evidence of hemodynamic significant stenosis. Moderate atheromatous changes are present the level the right carotid bulb The left carotid revealed no evidence of hemodynamic significant stenosis. There is no evidence of aneurysm. There is no evidence of dissection. There is no evidence of hemodynamically significant vertebral stenosis. There is no evidence of vertebral dissection. IMPRESSION: No evidence of hemodynamically significant carotid or vertebral artery stenosis. No evidence of dissection. ACT 112: Negative or not required by law. Consultation(s): Case was discussed with Palmira Do, [facility] PAC, with Dr. Boss, [facility] hospitalist who will evaluate the patient for admission. HPI: The patient is a pleasant 74-year-old gentleman with a past medical history of CKD, sick sinus syndrome status post pacemaker, hypertension, hyperlipidemia, BPH, GERD who presents emergency department with persistent vertigo/unsteadiness since last night which he reports occurred acutely when he was sitting in his chair and not moving his head around or looking around. He reports waking up this morning and feeling no significant improvement and he is barely able to wal k without widening his gait for stability. He reports some mild nausea but denies vomiting. He denies any recent illness including denies fevers, chills, cough, congestion, vomiting, diarrhea, urinary symptoms. He reports a history of vertigo in the past which was managed and improved with physical therapy. ROS: See above HPI for pertinent positives & negatives. A total of 10 systems reviewed and were otherwise negative. PAST MEDICAL HISTORY:See Below PAST SURGICAL HISTORY:See Below FAMILY HISTORY:See Below SOCIAL HISTORY:See Below HOME MEDICATIONS:See Below ALLERGIES:See Below VITALS:See Below PHYSICAL EXAMINATION: GENERAL: Awake, alert, fatigued-appearing, in no distress HENT: Normocephalic, atraumatic. Oropharynx with dry mucous membranes and o therwise unremarkable. EYES: Normal conjunctiva. Sclera non-icteric. EOMI. PEARRL. Subtle bilateral nystagmus that extinguishes. NECK: Supple. No nuchal rigidity. FROM. No JVD. RESPIRATORY: Clear to auscultation. CARDIAC: Regular rate, normal rhythm. Extremities warm and well perfused. Pulses equal. ABDOMEN: Soft, non-distended. No tenderness to palpation. No rebound or guarding. No masses. RECTAL: Deferred. MUSCULOSKELETAL: Chest examination reveals no tenderness. The back is symmetrical on inspection without obvious abnormality. There is no CVA tenderness to palpation. No joint edema. LOWER EXTREMITIES: Calves are equal size bilaterally and non-tender. No edema. No discoloration. NEURO: Normal sensorium. No sensory or motor deficits noted. Broad-based gait when attempting to ambulate. Positive Romberg sign. Cerebellar function intact including iwsyoh-lv-qkhz, alternating palms, lbjz-pr-qkpk. 5/5 strength and SILT x 4 extremities. Speech is fluent. SKIN: No rash or jaundice noted. Artem Steen MD Past Med/Surg History Medical History BPH (benign prostatic hyperplasia) Bradycardia Cardiac pacemaker in situ CKD (chronic kidney disease), stage III GERD (gastroesophageal reflux disease) High cholesterol Hypertension Pre-diabetes Sick sinus syndrome due to SA node dysfunction Surgical History History of colonoscopy with polypectomy History of permanent cardiac pacemaker placement Family History Father Prostate cancer Myocardial infarction, Onset Age: 70 Coronary heart disease Mother Coronary heart disease Other No significant past medical history Social History Smoking Status: Former smoker Second Hand Exposure: No; Do You Dip or Chew Tobacco: No; Hx Alcohol Use: Yes Alcohol type: wine Hx Substance Use: No Preferred Language: [place] Communication Ability: Effective Caramel Cutter Machine Required: No Beliefs That Will Affect Care: None marital status: Current Living Situation: Spouse Other Information That Helps Us Care for You: No Feels Safe at Home: Yes Assistive Devices: None Allergies Allergies Allergy/AdvReac Type Severity Reaction Status Date / Time Penicillins Allergy Intermediate Hives Verified 04/15/20 09:07 Home Meds Home Medications Medication Instructions Recorded Confirmed aspirin 81 mg PO HS 01/31/19 04/15/20 atorvastatin 40 mg PO DAILY 01/31/19 04/15/20 ramipril 20 mg PO HS 01/31/19 04/15/20 acetaminophen [Tylenol Arthritis 650 mg PO Q6 PRN 08/07/19 04/15/20 Pain] multivitamin 1 tab PO QAM 08/07/19 04/15/20 omega 2-wyx-okl-fish oil [[place]-3] 1 cap PO TID 08/07/19 04/15/20 ascorbic acid (vitamin C) [Vitamin 250 mg PO PM 04/15/20 04/15/20 C] calcium carbonate-vitamin D3 2 tab PO PM 04/15/20 04/15/20 carvedilol 6.25 mg PO BID 04/15/20 04/15/20 fluticasone propionate [Flonase 2 spray INTRANASAL DAILY PRN 04/15/20 04/15/20 Allergy Relief] omeprazole 20 mg PO DAILY 04/15/20 04/15/20 tamsulosin 0.4 mg PO PM 04/15/20 04/15/20 Results & Data (ED) Vital Signs Vital Signs - 24 hr 04/15/20 08:43 04/15/20 09:07 04/15/20 09:15 Temperature 36.6 C Temperature Source Oral Pulse Rate - Lying Pulse Rate - Sitting Pulse Rate - Standing Pulse Rate 83 65 61 Respiratory Rate 16 17 20 Blood Pressure - Lying Blood Pressure - Sitting Blood Pressure- Standing Blood Pressure 196/97 H Blood Pressure Mean 130 Pulse Oximetry 98 Oxygen Delivery Method Room Air Sepsis Recent Fever Within 48 Hours No Sepsis New/Unexplained Change in Mental Status N/A Sepsis Action Taken by Nursing No Action Required 04/15/20 09:18 04/15/20 09:30 04/15/20 09:38 Temperature Temperature Source Pulse Rate - Lying Pulse Rate - Sitting Pulse Rate - Standing Pulse Rate 62 69 Respiratory Rate 19 19 Blood Pressure - Lying Blood Pressure - Sitting Blood Pressure- Standing Blood Pressure 137/82 Blood Pressure Mean 109 Pulse Oximetry 96 Oxygen Delivery Method Room Air Sepsis Recent Fever Within 48 Hours Sepsis New/Unexplained Change in Mental Status Sepsis Action Taken by Nursing 04/15/20 09:45 04/15/20 09:59 04/15/20 10:00 Temperature Temperature Source Pulse Rate - Lying Pulse Rate - Sitting Pulse Rate - Standing Pulse Rate 60 61 61 Respiratory Rate 13 19 23 Blood Pressure - Lying Blood Pressure - Sitting Blood Pressure- Standing Blood Pressure 156/85 H 154/88 H Blood Pressure Mean 105 104 Pulse Oximetry Oxygen Delivery Method Sepsis Recent Fever Within 48 Hours Sepsis New/Unexplained Change in Mental Status Sepsis Action Taken by Nursing 04/15/20 10:01 04/15/20 10:02 04/15/20 10:03 Temperature Temperature Source Pulse Rate - Lying 62 Pulse Rate - Sitting 62 Pulse Rate - Standing 68 Pulse Rate 62 72 68 Respiratory Rate 15 14 20 Blood Pressure - Lying 165/83 H Blood Pressure - Sitting 159/86 H Blood Pressure- Standing 145/80 H Blood Pressure 165/83 H 159/86 H Blood Pressure Mean 119 111 Pulse Oximetry Oxygen Delivery Method Sepsis Recent Fever Within 48 Hours Sepsis New/Unexplained Change in Mental Status Sepsis Action Taken by Nursing 04/15/20 10:04 04/15/20 10:15 04/15/20 10:30 Temperature Temperature Source Pulse Rate - Lying Pulse Rate - Sitting Pulse Rate - Standing Pulse Rate 72 60 61 Respiratory Rate 23 15 14 Blood Pressure - Lying Blood Pressure - Sitting Blood Pressure- Standing Blood Pressure 145/80 H Blood Pressure Mean 97 Pulse Oximetry Oxygen Delivery Method Sepsis Recent Fever Within 48 Hours Sepsis New/Unexplained Change in Mental Status Sepsis Action Taken by Nursing 04/15/20 10:45 04/15/20 11:00 04/15/20 11:11 Temperature Temperature Source Pulse Rate - Lying Pulse Rate - Sitting Pulse Rate - Standing Pulse Rate 61 74 Respiratory Rate 16 22 Blood Pressure - Lying Blood Pressure - Sitting Blood Pressure- Standing Blood Pressure 163/94 H Blood Pressure Mean 109 Pulse Oximetry Oxygen Delivery Method Sepsis Recent Fever Within 48 Hours Sepsis New/Unexplained Change in Mental Status Sepsis Action Taken by Nursing 04/15/20 11:15 04/15/20 11:30 04/15/20 11:45 Temperature Temperature Source Pulse Rate - Lying Pulse Rate - Sitting Pulse Rate - Standing Pulse Rate 62 61 60 Respiratory Rate 17 24 26 H Blood Pressure - Lying Blood Pressure - Sitting Blood Pressure- Standing Blood Pressure Blood Pressure Mean Pulse Oximetry Oxygen Delivery Method Sepsis Recent Fever Within 48 Hours Sepsis New/Unexplained Change in Mental Status Sepsis Action Taken by Nursing 04/15/20 12:00 04/15/20 12:01 04/15/20 12:15 Temperature Temperature Source Pulse Rate - Lying Pulse Rate - Sitting Pulse Rate - Standing Pulse Rate 60 67 Respiratory Rate 19 19 Blood Pressure - Lying Blood Pressure - Sitting Blood Pressure- Standing Blood Pressure 188/88 H Blood Pressure Mean 141 Pulse Oximetry Oxygen Delivery Method Sepsis Recent Fever Within 48 Hours Sepsis New/Unexplained Change in Mental Status Sepsis Action Taken by Nursing 04/15/20 12:30 04/15/20 12:45 04/15/20 13:00 Temperature Temperature Source Pulse Rate - Lying Pulse Rate - Sitting Pulse Rate - Standing Pulse Rate 61 60 71 Respiratory Rate 15 25 H Blood Pressure - Lying Blood Pressure - Sitting Blood Pressure- Standing Blood Pressure 161/93 H Blood Pressure Mean 113 Pulse Oximetry Oxygen Delivery Method Sepsis Recent Fever Within 48 Hours Sepsis New/Unexplained Change in Mental Status Sepsis Action Taken by Nursing Laboratory Data Attestation: I reviewed the patient's lab results. Result diagrams: 04/15/20 09:53 04/15/20 09:53 Lab Results 04/15/20 04/15/20 Range/Units 09:53 09:53 WBC 6.44 (4.8-10.8) K/uL RBC 5.19 (4.7-6.1) M/uL Hgb 14.9 (14.0-18.0) g/dL Hct 44.2 (42-52) % MCV 85.2 (80-100) fL MCH 28.7 (25-34) pg MCHC 33.7 (32-36) g/dL RDW Std Deviation 39.8 (36.4-46.3) fL RDW Coeff of Anupam 12.9 (11.5-14.5) % Plt Count 139 (130-400) K/uL MPV 10.4 (7.4-10.4) fL Immature Gran % (Auto) 0.2 % Neut % (Auto) 66.1 % Lymph % (Auto) 23.0 % Gonzales % (Auto) 9.6 % Eos % (Auto) 0.8 % Baso % (Auto) 0.3 % Neut # (Auto) 4.26 (1.4-6.5) K/uL Lymph # (Auto) 1.48 (1.2-3.4) K/uL [place] # (Auto) 0.62 H (0.11-0.59) K/uL Eos # (Auto) 0.05 (0-0.5) K/uL Baso # (Auto) 0.02 (0-0.2) K/uL Immature Gran # (Auto) 0.01 (0.00-0.02) K/uL Sodium 138 (136-145) mmol/L Potassium 4.7 (3.5-5.1) mmol/L Chloride 107 (98-107) mmol/L Carbon Dioxide 26 (21-32) mmol/L Anion Gap 6.0 (3-11) BUN 22 H (7-18) mg/dl Creatinine 1.20 (0.6-1.4) mg/dl Est Cr Clr Drug Dosing 72.5 ml/min Est GFR ( Amer) 69.1 Est GFR (Non-Af Amer) 59.6 BUN/Creatinine Ratio 18.0 (10-20) Glucose 131 H (70-99) mg/dl Calcium 9.5 (8.5-10.1) mg/dl Phosphorus 2.7 (2.5-4.9) mg/dl Magnesium 2.3 (1.8-2.4) mg/dl Total Bilirubin 0.5 (0.2-1) mg/dl AST 27 (15-37) U/L ALT 34 (12-78) U/L Alkaline Phosphatase 53 (45-117) U/L Troponin I < 0.015 (0-0.045) ng/ml Total Protein 7.0 (6.4-8.2) gm/dl Albumin 3.7 (3.4-5.0) gm/dl Globulin 3.3 (2.5-4.0) gm/dl Albumin/Globulin Ratio 1.1 (0.9-2) Specimen Hemolysis Administered Medications Ascorbic Acid (Ascorbic Acid 500 Mg Tab) 250 mg PO PM [facility] Stop: 05/15/20 20:59 Last Admin: 04/15/20 21:01 Dose: 250 mg Documented by: [id number] Aspirin (Aspirin 81 Mg Ectab) 81 mg PO HS [facility] Stop: 05/15/20 20:59 Last Admin: 04/15/20 21:01 Dose: 81 mg Documented by: [id number] Carvedilol (Carvedilol 6.25 Mg Tab) 6.25 mg PO BID [facility] Stop: 05/15/20 20:59 Last Admin: 04/15/20 21:01 Dose: 6.25 mg Documented by: [id number] Enalapril Maleate (Enalapril Maleate 10 Mg Tab) 40 mg PO [facility] Stop: 05/15/20 20:59 Last Admin: 04/15/20 21: Dose: 40 mg Documented by: [id number] Fish Oil ([place]-3 (Purified Fish Oil) 1 Gm Cap) 1 gm PO TID [facility] Stop: 05/15/20 20:59 Last Admin: 04/15/20 21:01 Dose: 1 gm Documented by: [id number] Heparin Sodium (Porcine) (Heparin Sod 5,000 Unit/0.5 Ml Vial) 5,000 units SQ Q8 [facility] Stop: 05/15/20 13:03 Last Admin: 04/15/20 21:02 Dose: 5,000 units Documented by: [id number] Multivitamins/Minerals (Calcium 600mg + Vit D 400 Iu Tab) 2 tab PO PM [facility] Stop: 05/15/20 20:59 Last Admin: 04/15/20 21:01 Dose: 2 tab Documented by: [id number] Discontinued Medications Dexamethasone (Dexamethasone Sod Inj 10 Mg/Ml Vial) 10 mg IV NOW ONE Stop: 04/15/20 12:25 Last Admin: 04/15/20 12:46 Dose: 10 mg Documented by: [id number] Sodium Chloride (Nss) 500 mls @ 999 mls/hr IV .Q31M ONE Stop: 04/15/20 10:15 Last Infusion: 04/15/20 10:54 Dose: 0 mls/hr Documented by: [id number] Admin: 04/15/20 10:00 Dose: 999 mls/hr Documented by: [id number] Sodium Chloride (Nss) 500 mls @ 999 mls/hr IV .Q31M ONE Stop: 04/15/20 12:54 Last Infusion: 04/15/20 13:52 Dose: 0 mls/hr Documented by: [id number] Admin: 04/15/20 12:46 Dose: 999 mls/hr Documented by: [id number] Ioversol (Optiray 320 125ml) 119 ml IV ONCE ONE Stop: 04/15/20 11:05 Last Admin: 04/15/20 11:04 Dose: 119 ml Documented by: [id number] Meclizine HCl (Meclizine Hcl 25 Mg Tab) 25 mg PO NOW STA Stop: 04/15/20 09:37 Last Admin: 04/15/20 10:00 Dose: 25 mg Documented by: [id number] Metoclopramide HCl (Metoclopramide Hcl Inj 5 Mg/Ml 2 Ml Vial) 5 mg IV ONE ONE Stop: 04/15/20 09:55 Last Admin: 04/15/20 10:00 Dose: 5 mg Documented by: [id number] Discharge Plan Visit Data Chief Complaint: Vertigo Stated Complaint: VERTIGO ED Provider: Artem Steen ED Midlevel Provider: Eric Hammond Discharge Problem: Vertigo, Cardiac pacemaker in situ, CKD (chronic kidney disease), stage III Patient Disposition: Admitted As Inpatient Discharge Instructions Interventions: ED Discharge Assessment Last Done: 04/15/20 14:27
[2020-04-15] MEDS ORDERED: MECLIZINE HCL 25 MG TAB PO STA (09:36)
[2020-04-15] MEDS ORDERED: SODIUM CHLORIDE 0.9% 500 ML IV ONE ×2 (09:45→12:24)
[2020-04-15] MEDS ORDERED: METOCLOPRAMIDE HCL INJ 5 MG/ML 2 ML VIAL IV ONE (09:54)
[2020-04-15 10:18] LABS: Basophils # (auto) 0.02 K/uL (0-0.2); Basophils % (auto) 0.3 %; Eosinophils # (auto) 0.05 K/uL (0-0.5); Eosinophils % (auto) 0.8 %; Hematocrit (blood only) 44.2 % (42-52); Hemoglobin 14.9 g/dL (14.0-18.0); Immature Granulocytes # (auto) 0.01 K/uL (0.00-0.02); Immature Granulocytes % (auto) 0.2 %; Lymphocytes # (auto) 1.48 K/uL (1.2-3.4); Mean Corpuscular Hemoglobin 28.7 pg (25-34); Mean Corpuscular Hgb Conc 33.7 g/dL (32-36); Mean Corpuscular Volume 85.2 fL (80-100); Mean Platelet Volume 10.4 fL (7.4-10.4); Monocytes # (auto) 0.62 K/uL (0.11-0.59); Monocytes % (auto) 9.6 %; Neutrophils # (auto) 4.26 K/uL (1.4-6.5); Neutrophils % (auto) 66.1 %; Platelet Count 139 K/uL (130-400); RDW Coefficient of Variation 12.9 % (11.5-14.5); RDW Standard Deviation 39.8 fL (36.4-46.3); Red Blood Count 5.19 M/uL (4.7-6.1); White Blood Count 6.44 K/uL (4.8-10.8)
[2020-04-15 10:38] LABS: Alanine Aminotransferase 34 U/L (12-78); Albumin Globulin Ratio 1.1 (0.9-2); Albumin Level 3.7 gm/dl (3.4-5.0); Alkaline Phosphatase 53 U/L (45-117); Aspartate Aminotransferase 27 U/L (15-37); Bilirubin,Total 0.5 mg/dl (0.2-1); Blood Urea Nitrogen 22 mg/dl (7-18); Calcium 9.5 mg/dl (8.5-10.1); Carbon Dioxide 26 mmol/L (21-32); Chloride 107 mmol/L (98-107); Creatinine Clr Calc Pharmacy 72.5 ml/min; Est GFR (African American) 69.1; Est GFR (Non-African American) 59.6; Globulin 3.3 gm/dl (2.5-4.0); Glucose 131 mg/dl (70-99); Magnesium 2.3 mg/dl (1.8-2.4); Phosphorus 2.7 mg/dl (2.5-4.9); Potassium 4.7 mmol/L (3.5-5.1); Sodium 138 mmol/L (136-145); Troponin I < 0.015 ng/ml (0-0.045)
--- NOTE | 2020-04-15 10:42 | Emergency Department Note ---
ED Visit Note I saw this patient today and discussed my findings w/ Dr. Steen who has examined the patient independently. Please see his documentation for assessment and plan. . Resident Activity Tracking Resident Involvement: Resident Care Provided Care Provided: Adult ED
[2020-04-15] MEDS ORDERED: OPTIRAY 320 125ml IV ONE (11:04)
--- NOTE | 2020-04-15 11:17 | CT Scan Report ---
CT head/brain wo con CLINICAL HISTORY: dizziness , VERTIGO, POSSIBLE STROKE COMPARISON STUDY: 08/07/2019 TECHNIQUE: Axial CT of the brain is performed from the vertex to the skull base. IV contrast was not administered for this examination. A dose lowering technique was utilized adhering to the principles of ALARA. CT DOSE: 1322.98 mGy.cm FINDINGS: No intra or extra-axial mass lesions are visualized. There is no CT evidence of acute cortical infarc tion. There is no evidence of midline shift. There is no acute hemorrhage. No calvarial fractures ar e visualized. There are patchy white matter hypodensities likely on a small vessel basis. There is no evidence of pathologic ventricular dilatation. There is no evidence of acute sinusitis IMPRESSION: No acute intracranial findings ACT 112: Negative or not required by law. Electronically signed by: Misbah Jamil M.D. 04/15/2020 11:15 AM
--- NOTE | 2020-04-15 11:19 | CT Scan Report ---
CT angio neck with con CLINICAL HISTORY: dizziness VERTIGO, POSSIBLE ACUTE STROKE. COMPARISON STUDY: August 07, 2019 TECHNIQUE: CT angiography was performed from the aortic arch to the skull base. MIP imaging was perfo rmed. The patient was scanned in a dynamic helical fashion during intravenous administration of 119 c c of Optiray 320. A dose lowering technique was utilized adhering to the principles of ALARA. CT DOSE: Technique: CT angiogram of the carotid and vertebral arteries was obtained using intravenous contrast and 3-D reconstruction. NASCET criteria was utilized. Findings: The right carotid revealed no evidence of aneurysm and no evidence of dissection. There is no evidenc e of hemodynamic significant stenosis. Moderate atheromatous changes are present the level the right carotid bulb The left carotid revealed no evidence of hemodynamic significant stenosis. There is no evidence of an eurysm. There is no evidence of dissection. There is no evidence of hemodynamically significant vertebral stenosis. There is no evidence of verte bral dissection. IMPRESSION: No evidence of hemodynamically significant carotid or vertebral artery stenosis. No evidence of disse ction. ACT 112: Negative or not required by law. Electronically signed by: Misbah Jamil M.D. 04/15/2020 11:18 AM
--- NOTE | 2020-04-15 11:23 | CT Scan Report ---
HEAD CTA HISTORY: dizziness TECHNIQUE: Multiaxial CT images of the head were performed both before and after the intravenous admi nistration of contrast to evaluate the major cerebral vessels. Maximum intensity projection images we re also obtained. A dose lowering technique was utilized adhering to the principles of ALARA. COMPARISON: Head CTA 08/07/2019. FINDINGS: Visualized intracranial internal carotid arteries, distal vertebral arteries, and basilar a rtery are widely patent. There is no significant stenosis, occlusion, or aneurysm seen within the guillaume ateral ACAs, MCAs, or provider relations specialist. The major dural venous sinuses are patent. There is a hypoplastic distal right vertebral artery. Persistent right posterior circulation which is considered to be a norm al variant. IMPRESSION: No significant stenosis, occlusion, or aneurysm within the [place] of [place]. ACT 112: Negative or not required by law. Electronically signed by: Scooter Boston M.D. 04/15/2020 11:22 AM
[2020-04-15] MEDS ORDERED: DEXAMETHASONE SOD INJ 10 MG/ML VIAL IV ONE (12:24)
--- NOTE | 2020-04-15 13:19 | History & Physical Report ---
Date of Service April 15, 2020 Assessment & Plan (1) Dizziness: This is a 74 yr old M who has significant PMH of HTN, HLD, hx of SSS s/p pacemaker 2018, Pre diabetes, CKD-3, BPH, Gerd who presents to ED 2/2 to Vertigo x 1 day. Pt most recent hospitalization was 03/2019 which resulted from symptomatic bradycardia, dx with SSS and underwent pacemaker placement by Dr. Stewart. He last had a pacer check 04/13 which revealed a normal functioning pacemaker. admit to tele obtain MRI - rule out central cause of vertigo PT/OT meclizine 25mg po TID prn consult neurology and cardiology continue ASA, Statin Pt orthostatics is positive, although not hypotensive - SBP dropped from 165-145 sitting to standing received 500ml IVF, continue to monitor orthostatics and hold flomax (2) Hypertension: BP elevated in ED on coreg and ramipril follows [facility] cardiology, previously had been on amlodipine, but this was d/c in favor of coreg per Pt After reading interaction in [employer] from 01/14/20 unsure if pt was to truly stop amlodipine cardiology consulted, monitor (3) High cholesterol: continue atorvastatin (4) Pre-diabetes: last a1c 6.0 01/2019 obtain a1c in a.m. monitor FBS (5) CKD (chronic kidney disease), stage III: baseline Cr 1.2 bun/cr stable 22 and 1.22 monitor (6) BPH (benign prostatic hyperplasia): hold flomax due to orthostasis for now monitor (7) GERD (gastroesophageal reflux disease): continue PPI (8) Cardiac pacemaker in situ: hx of SSS s/p pacer 03/2019 pacer check 04/13/2020 unremarkable given acuity of sx developed after interrogation will place order for pacer interrogation (9) DVT prophylaxis: SQ Heparin Disposition: admit to [facility] tele Follow up: PCP Dr. Burkett upon discharge Pt was seen and examined in collaboration with Dr. Boss, please see addendum History of Present Illness Chief Complaint: Vertigo x 1 day. Primary Care Provider: Elysia Burkett, DO This is a 74 yr old M who has significant PMH of HTN, HLD, hx of SSS s/p pacemaker 2018, Pre diabetes, CKD-3, BPH, Gerd who presents to ED 2/2 to Vertigo x 1 day. Pt most recent hospitalization was 03/2019 which resulted from symptomatic bradycardia, dx with SSS and underwent pacemaker placement by Dr. Stewart. He last had a pacer check 04/13 which revealed a normal functioning pacemaker. Sx started abruptly yesterday sitting in reclining. Had acute onset dizziness and room spinning sensation. He was watching tv at eye position. Made worse with getting up and moving. Had to crawl on hands and knees to get to bed. Nothing made better. Crawled to bed. He got up in the middle of the night and felt sx had improved a little bit as he walked to the bathroom. When he woke up this morning it had worsened and he was unable to walk. He has been having vertigo issues in past, but usually its when he climbs a set of stairs he gets vertigo and it goes away in a few seconds. This did not occur everyday and he couldn't pinpoint pattern. He describes the dizziness after climbing a set of stairs, "winded and woozy," not like the room is spinning. It would go away prompty, but due to this not going away he came to ER. He denies chest pain, [place] or SOB with sx. He denies recent illness, f/c/s, syncope, pre syncope, chest pain, sob, n/v/d, abdominal pain, cough. Admits to drinking fluids and trying to push water. He exercises daily including treadmill, bike or elliptical for 30 minutes. Hx of vertigo in past. Was seen by PT and symptoms improved. In ED pt remained hemodynamically stable, although was mildly hypertensive. Orthostatic vitals were as followed lying/sitting/standing 165/82, 159/86, 145/80, HR 62, 62 and 68. CBC, CMP, mag and trop generally unremarkable with mild elevated glucose at 131. Head/Neck CTA and head CT were unremarkable. EKG A paced and NSR. In ED pt received IV dexamethasone, IVF, antivert and reglan. Allergies Allergy/AdvReac Type Severity Reaction Status Date / Time Penicillins Allergy Intermediate Hives Verified 04/15/20 09:07 Home Medications Medication Instructions Recorded Confirmed Type aspirin 81 mg PO HS 01/31/19 04/15/20 History atorvastatin 40 mg PO DAILY 01/31/19 04/15/20 History ramipril 20 mg PO HS 01/31/19 04/15/20 History acetaminophen [Tylenol Arthritis 650 mg PO Q6 PRN 08/07/19 04/15/20 History Pain] multivitamin 1 tab PO QAM 08/07/19 04/15/20 History omega 6-yky-dtk-fish oil [[place]-3] 1 cap PO TID 08/07/19 04/15/20 History ascorbic acid (vitamin C) [Vitamin 250 mg PO PM 04/15/20 04/15/20 History C] calcium carbonate-vitamin D3 2 tab PO PM 04/15/20 04/15/20 History carvedilol 6.25 mg PO BID 04/15/20 04/15/20 History fluticasone propionate [Flonase 2 spray INTRANASAL DAILY PRN 04/15/20 04/15/20 History Allergy Relief] omeprazole 20 mg PO DAILY 04/15/20 04/15/20 History tamsulosin 0.4 mg PO PM 04/15/20 04/15/20 History Past Med/Surg History Medical History (Updated 04/15/20 @ 13:16 by Palmira Do PA-C) BPH (benign prostatic hyperplasia) Bradycardia Cardiac pacemaker in situ CKD (chronic kidney disease), stage III GERD (gastroesophageal reflux disease) High cholesterol Hypertension Pre-diabetes Sick sinus syndrome due to SA node dysfunction Surgical History (Updated 04/15/20 @ 13:07 by Palmira Do PA-C) History of colonoscopy with polypectomy History of permanent cardiac pacemaker placement Family History Father Prostate cancer Myocardial infarction, Onset Age: 70 Coronary heart disease Mother Coronary heart disease Other No significant past medical history Social History (Updated 04/15/20 @ 13:08 by Palmira Do PA-C) Smoking Status: Former smoker Hx Alcohol Use: Yes Alcohol type: wine Hx Substance Use: No Preferred Language: Mongolian Communication Ability: Effective marital status: Current Living Situation: Spouse Feels Safe at Home: Yes Assistive Devices: None Review of Systems Review of Systems: All systems reviewed & are unremarkable except as noted in HPI & below Physical Exam Physical Exam: Constitutional: WD/WN, M, vitals as above, NAD, sitting up in bed, pleasant, conversing easily Head: Normocephalic, Atraumatic Eyes: PERRL, conjunctivae normal, anicteric sclerae ENMT: external ear and nose normal, oropharynx normal Neck: trachea midline, no thyromegaly normal visual inspection Respiratory: normal respiratory effort, lungs clear to auscultation, no wheeze, rales, rhonchi. Normal insp/exp effort, no accessory muscle use Cardiovascular: RRR, no murmur, no edema Vessels: no JVD or carotid bruit Chest: pacer site LACW, normal inspection of chest Abdomen: normal bowel sounds, soft, nontender, no hepatosplenomegaly Musculoskeletal: no cyanosis or clubbing, extremities motor strength 5/5 Skin: no rashes, warm and dry normal turgor Neurologic: dizziness not reproduced with leaning forward or head movement, PERRL, EOMI, accommodation nl, no face palsy, no dysarthria CN's II-XI intact bilaterally and moves all extremities Psychiatric: A+Ox3, euthymic affect Lymphatic: no cervical or axillary lymphadenopathy : deferred Results & Data Results & Data ([facility]) Vital Signs (Past 12 Hours) Vital Signs Temp Pulse Resp BP Pulse Ox 04/15/20 11:45 60 26 H 04/15/20 11:30 61 24 04/15/20 11:15 62 17 04/15/20 11:11 74 22 04/15/20 11:00 163/94 H 04/15/20 10:45 61 16 04/15/20 10:30 61 14 04/15/20 10:15 60 15 04/15/20 10:04 72 23 145/80 H 04/15/20 10:03 68 20 159/86 H 04/15/20 10:02 72 14 165/83 H 04/15/20 10:01 62 15 04/15/20 10:00 61 23 154/88 H 04/15/20 09:59 61 19 156/85 H 04/15/20 09:45 60 13 04/15/20 09:38 96 04/15/20 09:30 69 19 04/15/20 09:18 62 19 137/82 04/15/20 09:15 61 20 04/15/20 09:07 65 17 04/15/20 08:43 36.6 C 83 16 196/97 H 98 Laboratory Results Short CBC 04/15/20 Range/Units 09:53 WBC 6.44 (4.8-10.8) K/uL Hgb 14.9 (14.0-18.0) g/dL Hct 44.2 (42-52) % Plt Count 139 (130-400) K/uL BMP 04/15/20 09:53 Sodium 138 Potassium 4.7 Chloride 107 Carbon Dioxide 26 BUN 22 H Creatinine 1.20 Glucose 131 H Calcium 9.5 Cardiac Enzymes 04/15/20 Range/Units 09:53 Troponin I < 0.015 (0-0.045) ng/ml Liver Function 04/15/20 Range/Units 09:53 Total Bilirubin 0.5 (0.2-1) mg/dl AST 27 (15-37) U/L ALT 34 (12-78) U/L Alkaline Phosphatase 53 (45-117) U/L Albumin 3.7 (3.4-5.0) gm/dl Diagnostic Findings Head and Neck CTA: IMPRESSION: No evidence of hemodynamically significant carotid or vertebral artery stenosis. No evidence of dissection. IMPRESSION: No significant stenosis, occlusion, or aneurysm within the havasupai of Renae. Head CT: IMPRESSION: No acute intracranial findings Medications Administered Discontinued Medications Dexamethasone (Dexamethasone Sod Inj 10 Mg/Ml Vial) 10 mg IV NOW ONE Stop: 04/15/20 12:25 Last Admin: 04/15/20 12:46 Dose: 10 mg Documented by: [id number] Sodium Chloride (Nss) 500 mls @ 999 mls/hr IV .Q31M ONE Stop: 04/15/20 10:15 Last Infusion: 04/15/20 10:54 Dose: 0 mls/hr Documented by: [id number] Admin: 04/15/20 10:00 Dose: 999 mls/hr Documented by: [id number] Sodium Chloride (Nss) 500 mls @ 999 mls/hr IV .Q31M ONE Stop: 04/15/20 12:54 Last Admin: 04/15/20 12:46 Dose: 999 mls/hr Documented by: [id number] Ioversol (Optiray 320 125ml) 119 ml IV ONCE ONE Stop: 04/15/20 11:05 Last Admin: 04/15/20 11:04 Dose: 119 ml Documented by: [id number] Meclizine HCl (Meclizine Hcl 25 Mg Tab) 25 mg PO NOW STA Stop: 04/15/20 09:37 Last Admin: 04/15/20 10:00 Dose: 25 mg Documented by: [id number] Metoclopramide HCl (Metoclopramide Hcl Inj 5 Mg/Ml 2 Ml Vial) 5 mg IV ONE ONE Stop: 04/15/20 09:55 Last Admin: 04/15/20 10:00 Dose: 5 mg Documented by: [id number] ECG Rate (beats per minute): 71 Findings: + paced rhythm Code Status & VTE Plan Code Status Full Code VTE Prophylaxis Plan VTE Prophylaxis will be ordered: Yes Supervising Physician Co-Signing Physician Notes Patient seen and examined by me, care coordinated with Palmira Do PA-C, please see her note above for further detail. Pt is a 74 yr old M w/ HTN, HLD, hx of SSS, symptomatic bradycardia s/p pacemaker 03/2019, pre diabetes, CKD-3, BPH, GERD who presents w/ severe Vertigo x 1 day. Pt most recent hospitalization was 03/2019 which resulted from symptomatic bradycardia, dx with SSS and underwent pacemaker placement by Dr. Stewart. He last had a pacer check 04/13 which revealed a normal functioning pacemaker. Sx started abruptly yesterday sitting in chair and watching TV. Had acute onset dizziness and room spinning sensation. Patient reports history of vertigo in the past, however not this severe, reports that PT helped with his symptoms. He also has history of uncontrolled hypertension, followed by cardiology, had some adjustments of medications, per patient stopped amlodipine and started Coreg, in addition to ramipril. EKG in ED a paced rhythm with prolonged AV conduction, no significant change from previous. Patient was found to be orthostatic in ED. Patient does take Terazosin for BPH. CT head, CTA head and neck unremarkable. Currently patient is sitting up in bed, in no acute distress. Currently feels comfortable, when sitting up and moving, denies any dizziness. However gait was not assessed at this moment. Patient is normocephalic, atraumatic, some cerumen noted during ear exam. Patient is in no respiratory distress, breathing comfortably on room air, no wheezing rhonchi or crackles noted. Heart sounds regular. Abdomen soft, nontender nondistended, obese. Patient is able to move all 4 extremities spontaneously, no focal weakness found, also no sensory loss found. Patient denies any numbness and tingling in his extremities. Denies any headache. We will obtain brain MRI to rule out central cause of vertigo, given acute severe symptoms. Possibly BPPV, will order PT as well, for Caryl maneuvers. Neurology consulted. Will interrogate pacemaker, even though recently performed, and function was found to be normal -however this was prior to his symptoms onset. Will discuss with cardiology his blood pressure regimen and ask for their input after pacemaker is interrogated. Angella Boss MD
--- NOTE | 2020-04-15 14:14 | Electrocardiogram Report ---
Test Reason : Blood Pressure : / mmHG Vent. Rate : 071 BPM Atrial Rate : 071 BPM P-R Int : 256 ms QRS Dur : 086 ms QT Int : 368 ms P-R-T Axes : 042 005 030 degrees QTc Int : 399 ms Atrial-paced rhythm with prolonged AV conduction Abnormal ECG When compared with ECG of 07-AUG-2019 12:32, No significant change was found Confirmed by Ankit Stewart ([id number]) on 04/15/2020 2:14:08 PM Referred By: ER Confirmed By:Cristhian Stewart
[2020-04-15] MEDS ORDERED: FLUTICASONE PROPIONATE NA SPR 16 GM BTL PRN (16:06)
[2020-04-15] MEDS ORDERED: MAGNESIUM HYDROXIDE SUSP 30 ML UDC PO PRN (16:06)
[2020-04-15] MEDS ORDERED: MECLIZINE HCL 25 MG TAB PO PRN (16:06)
[2020-04-15] MEDS ORDERED: ONDANSETRON INJ 2 MG/ML 2 ML VIAL IV PRN (16:06)
[2020-04-15] MEDS ORDERED: ALUMINUM/MAGNESIUM SUSP 30 ML UDC PO PRN (16:06)
[2020-04-15] MEDS ORDERED: POLYETHYLENE (MIRALAX) 17 GM PACK PO PRN (16:06)
[2020-04-15] MEDS ORDERED: ACETAMINOPHEN 325 MG TAB PO PRN (16:06)
--- NOTE | 2020-04-15 16:44 | XRay Report ---
TWO VIEW CHEST CLINICAL HISTORY: Strokelike symptoms. FINDINGS: PA and lateral chest radiographs are compared to study dated 04/09/2019. A 2-lead cardiac p acemaker is unchanged in position and partially obscures the left upper chest. The heart is enlarged noting atherosclerotic calcification of the thoracic aorta. The pulmonary vasculature is noncongested . Chronic interstitial thickening is similar to previous. The lungs and pleural spaces are clear. Th ere is no pneumothorax. The skeletal structures are osteopenic. The bony thorax appears intact. Degen erative change is seen in the thoracic spine. IMPRESSION: 1. Cardiomegaly and cardiac pacemaker. There is no radiographic evidence of congestive failure. 2. There is no airspace consolidation or pleural effusion. ACT 112: Negative or not required by law. Electronically signed by: Basil Rebollar M.D. 04/15/2020 4:43 PM
[2020-04-15] MEDS ORDERED: ENALAPRIL MALEATE 10 MG TAB PO SCH (21:00)
[2020-04-15] MEDS ORDERED: CALCIUM 600MG + VIT D 400 IU TAB PO SCH (21:00)
[2020-04-15] MEDS ORDERED: ASCORBIC ACID 500 MG TAB PO SCH (21:00)
[2020-04-15] MEDS ORDERED: ASPIRIN 81 MG ECTAB PO SCH (21:00)
[2020-04-15] MEDS: OMEGA-3 (PURIFIED FISH OIL) 1 GM CAP PO SCH (21:01)
[2020-04-15] MEDS: carvediloL 6.25 MG TAB PO SCH (21:01)
[2020-04-15] MEDS: HEPARIN SOD 5,000 UNIT/0.5 ML VIAL SQ SCH (21:02)
[2020-04-16] MEDS: HEPARIN SOD 5,000 UNIT/0.5 ML VIAL SQ SCH ×2 (06:04→14:57)
[2020-04-16 07:00] LABS: Hematocrit (blood only) 44.2 % (42-52); Hemoglobin 14.5 g/dL (14.0-18.0); Mean Corpuscular Hemoglobin 28.1 pg (25-34); Mean Corpuscular Hgb Conc 32.8 g/dL (32-36); Mean Corpuscular Volume 85.7 fL (80-100); Platelet Count 154 K/uL (130-400); RDW Coefficient of Variation 12.9 % (11.5-14.5); RDW Standard Deviation 39.8 fL (36.4-46.3); Red Blood Count 5.16 M/uL (4.7-6.1); White Blood Count 10.46 K/uL (4.8-10.8)
[2020-04-16 07:15] LABS: Estimated Average Glucose 123 mg/dl; Hemoglobin A1C 5.9 % (4.5-5.6)
[2020-04-16 07:26] LABS: BUN Creatinine Ratio 15.7 (10-20); Calcium 9.2 mg/dl (8.5-10.1); Creatinine Clr Calc Pharmacy 75.5 ml/min; Est GFR (African American) 73.5; Est GFR (Non-African American) 63.4; Potassium 4.2 mmol/L (3.5-5.1)
[2020-04-16] MEDS: carvediloL 6.25 MG TAB PO SCH (08:48)
[2020-04-16] MEDS: OMEGA-3 (PURIFIED FISH OIL) 1 GM CAP PO SCH ×2 (08:49→14:57)
[2020-04-16] MEDS ORDERED: PANTOprazole 40 MG TAB PO SCH (09:00)
[2020-04-16] MEDS ORDERED: ATORVASTATIN 40 MG TAB PO SCH (09:00)
[2020-04-16] MEDS ORDERED: MULTIVITAMIN TAB PO SCH (09:00)
[2020-04-16] MEDS ORDERED: amLODIPine BESYLATE 5 MG TAB PO SCH (09:00)
[2020-04-16] MEDS ORDERED: LORazepam 0.5 MG TAB PO ONE (10:20)
--- NOTE | 2020-04-16 10:25 | Cardiology Consultation ---
Date of Consultation April 16, 2020 Assessment & Plan (1) Vertigo: (2) Sick sinus syndrome due to SA node dysfunction: (3) Hypertension: Believe the main issue at this point is his benign positional vertigo and I will ask for physical therapy colleagues to evaluate for Hallpike and likely Caryl maneuvers. The need to continue self exercise as an outpatient was stressed to the patient. Further work-up per primary team and neurology In regards to his hypertension he has been restarted on his recommended outpatient regimen of carvedilol and amlodipine. His ramipril dose was also increased to 40 mg daily He was previously placed on Terazosin however he did not believe this was helpi ng his nocturia so he took it upon himself to discontinue. Consideration can be given to reinstituting Terazosin in the future. Okay to discharge from a cardiac standpoint once vertigo is controlled and blood pressure remained stable History of Present Illness Reason for Consultation: BPPV and uncontrolled HTN Requesting Physician: Dr. Dye Attending Physician: Giacomo Dye MD History of Present Illness It was my pleasure to see Mr. Magaña in cardiac consultation today April 14, 2020. He is a very pleasant 74-year-old gentleman who routinely follows with myself as an outpatient for his history of sick sinus syndrome status post dual- chamber permanent pacemaker placement and hypertension. He presented to [facility] on 04/15/2020 with complaints of severe vertigo. He does have a history of benign positional vertigo and was treated by physical therapy in the past. He notes that he was doing his exercise maneuvers, however, he did not think he was improving so he stopped them several weeks ago. His vertigo has been reoccurring particularly when climbing up the stairs. On the evening of the first he was sitting watching television with vertigo became so severe he could not stand. He was able to go to bed and woke up next morning feeling relatively well and presented to the emergency room. Upon arrival he was hypertensive and was found that he misunderstood my previous directions to add amlodipine along with his carvedilol. 1. Symptomatic bradycardia status post dual-chamber permanent pacemaker placement March 2019 2. Hypertension 3. Likely BPH 4. GERD 5. Benign positional vertigo 6. Episodes of medical noncompliance Allergies Allergy/AdvReac Type Severity Reaction Status Date / Time Penicillins Allergy Intermediate Hives Verified 04/15/20 09:07 Home Medications Medication Instructions Recorded Confirmed Type aspirin 81 mg PO HS 01/31/19 04/15/20 History atorvastatin 40 mg PO DAILY 01/31/19 04/15/20 History ramipril 20 mg PO HS 01/31/19 04/15/20 History acetaminophen [Tylenol Arthritis 650 mg PO Q6 PRN 08/07/19 04/15/20 History Pain] multivitamin 1 tab PO QAM 08/07/19 04/15/20 History omega 6-hzu-xqk-fish oil [[place]-3] 1 cap PO TID 08/07/19 04/15/20 History ascorbic acid (vitamin C) [Vitamin 250 mg PO PM 04/15/20 04/15/20 History C] calcium carbonate-vitamin D3 2 tab PO PM 04/15/20 04/15/20 History carvedilol 6.25 mg PO BID 04/15/20 04/15/20 History fluticasone propionate [Flonase 2 spray INTRANASAL DAILY PRN 04/15/20 04/15/20 History Allergy Relief] omeprazole 20 mg PO DAILY 04/15/20 04/15/20 History tamsulosin 0.4 mg PO PM 04/15/20 04/15/20 History Patient History Medical History BPH (benign prostatic hyperplasia) Bradycardia Cardiac pacemaker in situ CKD (chronic kidney disease), stage III GERD (gastroesophageal reflux disease) High cholesterol Hypertension Pre-diabetes Sick sinus syndrome due to SA node dysfunction Surgical History History of colonoscopy with polypectomy History of permanent cardiac pacemaker placement Family History Father Prostate cancer Myocardial infarction, Onset Age: 70 Coronary heart disease Mother Coronary heart disease Other No significant past medical history Social History Smoking Status: Former smoker Second Hand Exposure: No; Do You Dip or Chew Tobacco: No; Hx Alcohol Use: Yes Alcohol type: wine Hx Substance Use: No Preferred Language: Croatian Communication Ability: Effective Pole Classifier Required: No Beliefs That Will Affect Care: None marital status: Current Living Situation: Spouse Other Information That Helps Us Care for You: No Feels Safe at Home: Yes Assistive Devices: None Review of Systems Review of Systems: All systems reviewed & are unremarkable except as noted in HPI & below Physical Exam Physical Exam: General: Awake, alert and oriented x 3. No acute distress. HEENT: Normocephalic, atraumatic. Pupils equal, round and reactive to light and accommodation. Extraocular muscles are intact. Anicteric sclera. Moist mucous membranes. Neck: No JVD. No bruit. Cardiovascular: Regular. Positive S-4. Normal S-1 and S-2. No S-3. No murmurs or rubs. Pulmonary: Clear to auscultation B/L. No rales, rhonchi or wheezing Abdomen: Bowel sounds x 4, soft. No rebound, guarding or tenderness. No organomegaly. Extremities: No clubbing, cyanosis or edema. +2 pedal pulses bilaterally. Skin: Warm and dry. Results & Data ([facility]) Vital Signs (Past 12 Hours) Vital Signs Temp Pulse Pulse Resp BP Pulse Ox 04/16/20 08:02 36.5 C 71 18 155/74 H 96 04/16/20 07:00 60 04/16/20 03:00 36.5 C 71 20 113/61 95 04/15/20 23:56 60 04/15/20 23:32 36.8 C 68 20 147/73 H 95
--- NOTE | 2020-04-16 16:00 | Neurology Consultation ---
Date of Consultation April 16, 2020 Assessment & Plan (1) Vertigo: 1. CTA head and neck reviewed 2. needs MRI of IAC with and without contrast to r/o lesion - history of Reform palsy and vertigo- needs open MRI 3. continue meclizine prn 4. PT for Caryl and may need referral to balance center after MRI is done 5. would resume home exercises for now 6. will see in out patient clinic 4-6 weeks Gloria OREILLY 7. OK to discharge when medically stable. Present on Admission?: Yes (2) Cardiac pacemaker in situ: 1. cardiology for follow up Present on Admission?: Yes Supervising Physician Co-Signing Physician Notes I have seen and discussed above patient with Dr Prateek Duran, neurology I have interviewed and examined this patient in conjunction with Gloria Valenzuela PA-C, have reviewed her note, have discussed the above recommendations with both she and Dr. Dye. 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 and may or may not have emerged after the right Cabezas's palsy which is now essentially resolved and is manifested perhaps by a minimal degree of synkinesis Currently he is virtually asymptomatic with the exception of his subjective sense of gait unsteadiness and the exam really does not show anything significant, we can move his head back and forth without inducing any vertigo and the physical therapist thinks there may be evidence for a left vestibulopathy and have apparently performed an Caryl maneuver The history is unusual for benign positional vertigo in that the attacks are prolonged and while there may be some elements of this operating I think we do need to look for a structural problem involving the brainstem, the internal acoustic meati and he may well need to be seen by ear nose and throat at some point I agree with continuing the meclizine which historically may have produced some benefit here over and above the simple passage of time We do not have any evidence to suggest a significant extracranial vascular or intracranial vascular stenosis and I really doubt that this has an ischemic basis Arrangements for an outpatient open MRI are underway along with appropriate follow-up in our clinic after results have been complete Prateek Duran MD History of Present Illness Reason for Consultation: vertigo Requesting Physician: Giacomo Dye MD Attending Physician: Giacomo Dye MD History of Present Illness Paul is a 74 year old male with PMH HTN, HLD, SSS with pacemaker 03/2019, preDM, CKD 3, BPH, GERD who presented to the ED with vertigo x 1 days. In March of 2019 he had a symptomatic tanesha cardia found to have SSS and had a pacemaker placed. His pacemaker was checked and functioning normally. He was sitting in his recliner and started having a rapid onset of dizziness which caused him to crawl on the floor to get to bed. He woke to go to the bathroom and felt it was a little better but then in the morning it had worsened. He had his first vertigo episode after his pacemaker was placed and then about 6 months ago had an episode of right sided Reform palsy. He has not had an MRI because he is claustrophobic and is requesting an MRI as an outpatient. denies CP, SOB, abdominal pain, gait difficulty when first standing. Allergies Allergy/AdvReac Type Severity Reaction Status Date / Time Penicillins Allergy Intermediate Hives Verified 04/15/20 09:07 Home Medications Medication Instructions Recorded Confirmed Type aspirin 81 mg PO HS 01/31/19 04/15/20 History atorvastatin 40 mg PO DAILY 01/31/19 04/15/20 History ramipril 20 mg PO HS 01/31/19 04/15/20 History acetaminophen [Tylenol Arthritis 650 mg PO Q6 PRN 08/07/19 04/15/20 History Pain] multivitamin 1 tab PO QAM 08/07/19 04/15/20 History omega 4-oql-hds-fish oil [[place]-3] 1 cap PO TID 08/07/19 04/15/20 History ascorbic acid (vitamin C) [Vitamin 250 mg PO PM 04/15/20 04/15/20 History C] calcium carbonate-vitamin D3 2 tab PO PM 04/15/20 04/15/20 History carvedilol 6.25 mg PO BID 04/15/20 04/15/20 History fluticasone propionate [Flonase 2 spray INTRANASAL DAILY PRN 04/15/20 04/15/20 History Allergy Relief] omeprazole 20 mg PO DAILY 04/15/20 04/15/20 History tamsulosin 0.4 mg PO PM 04/15/20 04/15/20 History Patient History Medical History BPH (benign prostatic hyperplasia) Bradycardia Cardiac pacemaker in situ CKD (chronic kidney disease), stage III GERD (gastroesophageal reflux disease) High cholesterol Hypertension Pre-diabetes Sick sinus syndrome due to SA node dysfunction Surgical History History of colonoscopy with polypectomy History of permanent cardiac pacemaker placement Family History Father Prostate cancer Myocardial infarction, Onset Age: 70 Coronary heart disease Mother Coronary heart disease Other No significant past medical history Social History Smoking Status: Former smoker Second Hand Exposure: No; Do You Dip or Chew Tobacco: No; Hx Alcohol Use: Yes Alcohol type: wine Hx Substance Use: No Preferred Language: Tamazight Communication Ability: Effective Circuit Court Judge Required: No Beliefs That Will Affect Care: None marital status: Current Living Situation: Spouse Other Information That Helps Us Care for You: No Feels Safe at Home: Yes Assistive Devices: Glasses Review of Systems Review of Systems: All systems reviewed & are unremarkable except as noted in HPI & below and All systems reviewed & are unremarkable except as noted in Subjective Physical Exam Physical Exam: Physical Exam: Constitutional: appearance over nourished, healthy Ears, Nose, Mouth and Throat: mucous membranes moist, no injection and skin normal, eyes normal Cardiovascular: normal S-1 and S-2 and regular rate and rhythm Respiratory: clear to auscultation (CTA) and no rales, ronchi or wheeze Musculoskeletal: no peripheral edema and good distal pulses Skin: no stigmata of neurocutaneous disease noted and normal and intact Eyes: extraocular muscles intact (EOMI) and pupils equal, round and reactive to light (PERRL).nystagmus bilaterally NEUROLOGIC EXAMINATION: Mental status: Alert and interactive Oriented to full date and location Oriented to person Speech fluent with no evidence of aphasia Cranial Nerves facial symmetry Reflexes: Deep tendon reflexes were symmetrical and graded 2/5. down going toes Sensory: finger to nose, slight reaching tremor Coordination: Romberg absent Gait/Stance: Posture normal. Gait normal: with steady with steps, wide base tandem gait. Motor: Negative for pronator drift of out stretched arms with eyes closed. Strength: Normal - hand nursing student biceps triceps 5/5 bilaterally, hip flex plantar flex ext 5/5 Results & Data ([facility]) Vital Signs (Past 12 Hours) Vital Signs Temp Pulse Pulse Resp BP Pulse Ox 04/16/20 11:35 36.8 C 71 18 158/82 H 95 04/16/20 08:02 36.5 C 71 18 155/74 H 96 04/16/20 07:00 60 Laboratory Results Abnormal lab results 04/16/20 04/16/20 04/16/20 Range/Units 06:13 06:13 06:13 MPV 11.0 H (7.4-10.4) fL Glucose 131 H (70-99) mg/dl Hemoglobin A1c 5.9 H (4.5-5.6) % Diagnostic Findings CTA neck -No evidence of hemodynamically significant carotid or vertebral artery stenosis. No evidence of dissection. CTA head-no vascular stenosis, or aneurysms
--- NOTE | 2020-04-16 17:46 | Hospitalist Progress Note ---
Date of Service April 16, 2020 Assessment & Plan (1) Dizziness: Present on admission with episode of vertigo CT head showed no acute intracranial abnormality CTA head showed no significant stenosis, occlusion, or aneurysm within the [place] of [place]. CTA neck showed no evidence of hemodynamically significant carotid or vertebral artery stenosis. No evidence of dissection. MRI was ordered but patient was not able to complete the MRI due to claustrophobic dizziness improves with the meclizine No focal neuro deficit on exam Continue PT eval Fall precaution Case discussed with Neuro that recommended to arrange for outpatient head MRI of IAC with and without contrast to rule out any intracranial lesion (Pt said that is able to tolerate open MRI) Consider outpatient physical therapy for Caryl maneuver and may need referral to balance center after MRI is done Follow with neurology on 4-6 weeks Ok to discharge home from neurology standpoint (2) Hypertension: BP elevated in ED Outpatient med resumed with carvedilol 6.25 mg BID, Amlodipine 10mg daily ramipril increased to 40mg daily Cardiology on board Continue monitor BP (3) High cholesterol: continue atorvastatin (4) Pre-diabetes: Most recent Hba1c 5.9 on 04/16/20 Continue monitor BS Pt was advised about to follow a low carb diet and limited concentrated sweet intake (5) CKD (chronic kidney disease), stage III: creatinine stable (6) BPH (benign prostatic hyperplasia): Will resume flomax on discharge (7) GERD (gastroesophageal reflux disease): continue PPI (8) Cardiac pacemaker in situ: hx of SSS s/p pacer 03/2019 pacer check 04/13/2020 unremarkable Pace maker was adjusted before MRI and after the MRI today Stable (9) DVT prophylaxis: SQ Heparin Disposition: Discharge home today Admission and Anticipated Discharge Date Admission Date: April 15, 2020 Subjective Follow up for dizziness Pt was seen and examined Lying in bed with no distress Pt said that he feels much better He said that he is able to walk to the bathroom with no discomfort He was not able to tolerate the MRI of the head due to his claustrophobic Denies any chest pain, palpitation, dizziness and SOB Review of Systems Review of Systems: All systems reviewed & are unremarkable except as noted in Subjective Physical Exam Physical Exam: General- No acute distress Head- atraumatic Eyes- PERRL, EOMI, ENT- oropharynx clear Neck- supple, no JVD Lungs- clear to auscultation Heart- regular rhythm; no murmur Abdomen- normal bowel sounds, soft, nontender Extremities- no calf tenderness Neuro- alert, oriented x 3; PERRL, EOMI; no facial palsy; no dysarthria Skin- warm & dry Results & Data Results & Data ([facility]) Vital Signs (Past 12 Hours) Vital Signs Temp Pulse Pulse Pulse Resp BP BP 04/16/20 16:26 36.8 C 71 83 18 158/82 H 127/74 04/16/20 16:00 64 04/16/20 11:35 36.8 C 71 18 158/82 H 04/16/20 08:02 36.5 C 71 18 155/74 H 04/16/20 07:00 60 Pulse Ox 04/16/20 16:26 95 04/16/20 16:00 04/16/20 11:35 95 04/16/20 08:02 96 04/16/20 07:00
--- NOTE | 2020-04-17 09:07 | Discharge Summary ---
Date of Service April 16, 2020 Admission HPI Per Admitting Provider This is a 74 yr old M who has significant PMH of HTN, HLD, hx of SSS s/p pacemaker 2018, Pre diabetes, CKD-3, BPH, Gerd who presents to ED 2/ to Vertigo x 1 day. Pt most recent hospitalization was 03/2019 which resulted from symptomatic bradycardia, dx with SSS and underwent pacemaker placement by Dr. Stewart. He last had a pacer check 04/13 which revealed a normal functioning pacemaker. Sx started abruptly yesterday sitting in reclining. Had acute onset dizziness and room spinning sensation. He was watching tv at eye position. Made worse with getting up and moving. Had to crawl on hands and knees to get to bed. Nothing made better. Crawled to bed. He got up in the middle of the night and felt sx had improved a little bit as he walked to the bathroom. When he woke up this morning it had worsened and he was unable to walk. He has been having vertigo issues in past, but usually its when he climbs a set of stairs he gets vertigo and it goes away in a few seconds. This did not occur everyday and he couldn't pinpoint pattern. He describes the dizziness after climbing a set of stairs, "winded and woozy," not like the room is spinning. It would go away prompty, but due to this not going away he came to ER. He denies chest pain, [place] or SOB with sx. He denies recent illness, f/c/s, syncope, pre syncope, chest pain, sob, n/v/d, abdominal pain, cough. Admits to drinking fluids and trying to push water. He exercises daily including treadmill, bike or elliptical for 30 minutes. Hx of vertigo in past. Was seen by PT and symptoms improved. In ED pt remained hemodynamically stable, although was mildly hypertensive. Orthostatic vitals were as followed lying/sitting/standing 165/82, 159/86, 145/80, HR 62, 62 and 68. CBC, CMP, mag and trop generally unremarkable with mild elevated glucose at 131. Head/Neck CTA and head CT were unremarkable. EKG A paced and NSR. In ED pt received IV dexamethasone, IVF, antivert and reglan. Admission Exam Per Admitting Provider Constitutional: WD/WN, M, vitals as above, NAD, sitting up in bed, pleasant, conversing easily Head: Normocephalic, Atraumatic Eyes: PERRL, conjunctivae normal, anicteric sclerae ENMT: external ear and nose normal, oropharynx normal Neck: trachea midline, no thyromegaly normal visual inspection Respiratory: normal respiratory effort, lungs clear to auscultation, no wheeze, rales, rhonchi. Normal insp/exp effort, no accessory muscle use Cardiovascular: RRR, no murmur, no edema Vessels: no JVD or carotid bruit Chest: pacer site LACW, normal inspection of chest Abdomen: normal bowel sounds, soft, nontender, no hepatosplenomegaly Musculoskeletal: no cyanosis or clubbing, extremities motor strength 5/5 Skin: no rashes, warm and dry normal turgor Neurologic: dizziness not reproduced with leaning forward or head movement, PERRL, EOMI, accommodation nl, no face palsy, no dysarthria CN's II-XI intact bilaterally and moves all extremities Psychiatric: A+Ox3, euthymic affect Lymphatic: no cervical or axillary lymphadenopathy : deferred Principal Diagnosis Dizziness Hypertension High cholesterol Pre-diabetes: CKD (chronic kidney disease), stage III: BPH (benign prostatic hyperplasia): Discharge Exam General- No acute distress Head- atraumatic Eyes- PERRL, EOMI, ENT- oropharynx clear Neck- supple, no JVD Lungs- clear to auscultation Heart- regular rhythm; no murmur Abdomen- normal bowel sounds, soft, nontender Extremities- no calf tenderness Neuro- alert, oriented x 3; PERRL, EOMI; no facial palsy; no dysarthria Skin- warm & dry Discharge Data Allergies Allergy/AdvReac Type Severity Reaction Status Date / Time Penicillins Allergy Intermediate Hives Verified 04/15/20 09:07 Consultations 04/15/20 12:53 ED Decision to Admit Stat 04/15/20 16:06 Consult Cardiology Routine Consult Case Management - Discharge Planning Routine Consult Neurology Routine Ordered Studies 04/15/20 09:36 CT head/brain wo con Stat 04/15/20 09:42 CT angio head w con Stat CT angio neck with con Stat 04/16/20 00:23 MR brain wo/w con Routine CT angio neck with con CLINICAL HISTORY: dizziness VERTIGO, POSSIBLE ACUTE STROKE. COMPARISON STUDY: August 07, 2019 TECHNIQUE: CT angiography was performed from the aortic arch to the skull base. MIP imaging was performed. The patient was scanned in a dynamic helical fashion during intravenous administration of 119 cc of Optiray 320. A dose lowering technique was utilized adhering to the principles of ALARA. CT DOSE: Technique: CT angiogram of the carotid and vertebral arteries was obtained using intravenous contrast and 3-D reconstruction. NASCET criteria was utilized. Findings: The right carotid revealed no evidence of aneurysm and no evidence of dissection. There is no evidence of hemodynamic significant stenosis. Moderate atheromatous changes are present the level the right carotid bulb The left carotid revealed no evidence of hemodynamic significant stenosis. There is no evidence of aneurysm. There is no evidence of dissection. There is no evidence of hemodynamically significant vertebral stenosis. There is no evidence of vertebral dissection. IMPRESSION: No evidence of hemodynamically significant carotid or vertebral artery stenosis. No evidence of dissection. ACT 112: Negative or not required by law. Electronically signed by: Misbah Jamil M.D. 04/15/2020 11:18 AM Dictated: 04/15/201114Transcribed: 04/15/201114 HEAD CTA HISTORY: dizziness TECHNIQUE: Multiaxial CT images of the head were performed both before and after the intravenous administration of contrast to evaluate the major cerebral vessels. Maximum intensity projection images were also obtained. A dose lowering technique was utilized adhering to the principles of ALARA. COMPARISON: Head CTA 08/07/2019. FINDINGS: Visualized intracranial internal carotid arteries, distal vertebral arteries, and basilar artery are widely patent. There is no significant stenosis, occlusion, or aneurysm seen within the bilateral ACAs, MCAs, or felt puller. The major dural venous sinuses are patent. There is a hypoplastic distal right vertebral artery. Persistent right posterior circulation which is considered to be a normal variant. IMPRESSION: No significant stenosis, occlusion, or aneurysm within the [place] of [place]. ACT 112: Negative or not required by law. Electronically signed by: Scooter Boston M.D. 04/15/2020 11:22 AM Dictated: 04/15/20 1117Transcribed: 04/15/201116 CT head/brain wo con CLINICAL HISTORY: dizziness , VERTIGO, POSSIBLE STROKE COMPARISON STUDY: 08/07/2019 TECHNIQUE: Axial CT of the brain is performed from the vertex to the skull base. IV contrast was not administered for this examination. A dose lowering technique was utilized adhering to the principles of ALARA. CT DOSE: 1322.98 mGy.cm FINDINGS: No intra or extra-axial mass lesions are visualized. There is no CT evidence of acute cortical infarction. There is no evidence of midline shift. There is no acute hemorrhage. No calvarial fractures are visualized. There are patchy white matter hypodensities likely on a small vessel basis. There is no evidence of pathologic ventricular dilatation. There is no evidence of acute sinusitis IMPRESSION: No acute intracranial findings ACT 112: Negative or not required by law. Electronically signed by: Misbah Jamli M.D. 04/15/2020 11:15 AM Dictated: 04/15/20 1114Transcribed: 04/15/20 1114 TWO VIEW CHEST CLINICAL HISTORY: Strokelike symptoms. FINDINGS: PA and lateral chest radiographs are compared to study dated 04/09/2019. A 2-lead cardiac pacemaker is unchanged in position and partially obscures the left upper chest. The heart is enlarged noting atherosclerotic calcification of the thoracic aorta. The pulmonary vasculature is noncongested. Chronic interstitial thickening is similar to previous. The lungs and pleural spaces are clear. There is no pneumothorax. The skeletal structures are osteopenic. The bony thorax appears intact. Degenerative change is seen in the thoracic spine. IMPRESSION: 1. Cardiomegaly and cardiac pacemaker. There is no radiographic evidence of congestive failure. 2. There is no airspace consolidation or pleural effusion. ACT 112: Negative or not required by law. Electronically signed by: Basil Rebollar M.D. 04/15/2020 4:43 PM Dictated: 04/15/20 1642Transcribed: 04/15/20 1642 Hospital Course (1) Dizziness: Present on admission with episode of vertigo CT head showed no acute intracranial abnormality CTA head showed no significant stenosis, occlusion, or aneurysm within the [place] of [place]. CTA neck showed no evidence of hemodynamically significant carotid or vertebral artery stenosis. No evidence of dissection. MRI was ordered but patient was not able to complete the MRI due to claustrophobic dizziness improves with the meclizine No focal neuro deficit on exam Continue PT eval Fall precaution Case discussed with Neuro that recommended to arrange for outpatient head MRI of IAC with and without contrast to rule out any intracranial lesion (Pt said that is able to tolerate open MRI) Consider outpatient physical therapy for Caryl maneuver and may need referral to balance center after MRI is done Follow with neurology on 4-6 weeks Ok to discharge home from neurology standpoint (2) Hypertension: BP elevated in ED Outpatient med resumed with carvedilol 6.25 mg BID, Amlodipine 10mg daily ramipril increased to 40mg daily Cardiology on board Continue monitor BP (3) High cholesterol: continue atorvastatin (4) Pre-diabetes: Most recent Hba1c 5.9 on 04/16/20 Continue monitor BS Pt was advised about to follow a low carb diet and limited concentrated sweet intake (5) CKD (chronic kidney disease), stage III: creatinine stable (6) BPH (benign prostatic hyperplasia): Will resume flomax on discharge (7) GERD (gastroesophageal reflux disease): continue PPI (8) Cardiac pacemaker in situ: hx of SSS s/p pacer 03/2019 pacer check 04/13/2020 unremarkable Pace maker was adjusted before MRI and after the MRI today Stable (9) DVT prophylaxis: SQ Heparin Disposition: Discharge home today Total Time Total Time Spent Total Time Spent (In Minutes): 35 minutes Total Time Includes: Examination of the Patient, Discharge Planning, Medication Reconciliation, Communication With Other Providers and Other Discharge Plan Discharge Items Patient Disposition: Home - Self-Care Reason For Visit: VERTIGO Discharge Diagnosis: Dizziness Hypertension High cholesterol Pre-diabetes: CKD (chronic kidney disease), stage III: BPH (benign prostatic hyperplasia): Activity: Resume your previous activity Non-emergency contact: Primary Care Provider Call non-emergency contact if: you have any medication questions Follow-up/Referrals: Elysia Burkett, [Primary Care Provider] - Diet: Heart Healthy Addtl Attending Provider Instructions: Follow up with your primary care provider Dr. Burkett in 7 days (Office will call you with the appointment) Follow up with neurology in 4-6 weeks Gloria OREILLY (Office will call you with the appointment) You will need to arrange for head MRI of IAC with and without contrast to rule out any intracranial lesion Consider outpatient physical therapy for Caryl maneuver and may need referral to balance center after MRI is done Fall precaution Continue Amlodipine 10mg daily and Carvedilol 6.25mg twice a day for your blood pressure Ramipril increased to 40mg daily for your blood pressure Continue monitor your blood pressure and bring your blood pressure log at your next follow up appointment with your provider Pending Studies at Discharge: No Stand-Alone Forms: [facility] [employer], Smoking Cessation Medications and DC Order Prescriptions: New meclizine 25 mg Tablet 25 mg PO TID PRN (Reason: dizziness) Qty: 30 RF: 0 amlodipine 10 mg tablet 10 mg PO DAILY Qty: 30 RF: 0 Continued aspirin 81 mg Tablet,Delayed Release (Dr/Ec) 81 mg PO HS RF: 0 atorvastatin 40 mg Tablet 40 mg PO DAILY RF: 0 carvedilol 6.25 mg tablet 6.25 mg PO BID RF: 0 calcium carbonate-vitamin D3 600 mg(1,500mg) -200 unit Tablet 2 tab PO PM RF: 0 tamsulosin 0.4 mg capsule 0.4 mg PO PM RF: 0 ascorbic acid (vitamin C) [Vitamin C] 250 mg Tablet 250 mg PO PM RF: 0 fluticasone propionate [Flonase Allergy Relief] 50 mcg/actuation Mccr[place],Suspension 2 spray INTRANASAL DAILY PRN (Reason: seasonal allergies) RF: 0 omeprazole 20 mg Capsule,Delayed Release(Dr/Ec) 20 mg PO DAILY RF: 0 multivitamin Tablet 1 tab PO QAM RF: 0 acetaminophen [Tylenol Arthritis Pain] 650 mg Tablet Extended Release 650 mg PO Q6 PRN (Reason: Pain) RF: 0 [place]-3 350 mg-235 mg- 90 mg-597 mg Capsule,Delayed Release(Dr/Ec) 1 cap PO TID RF: 0 Changed ramipril 10 mg Capsule 40 mg PO HS 30 Days Qty: 120 RF: 0 Discharge Orders: Discharge Order (Routine); Ordered 04/16/20 Ordered By: Giacomo Dye Admission Data Admit Date/Time: 04/15/20 13:03 Attending Provider: Giacomo Dye Admit Provider: Lan Boss Primary Care Provider: Elysia Burkett Other Providers: Lan Boss ; Rubnes Walker ; Prateek Duran Other Interventions: Discharge Summary Assessment (RN) Last Done: 04/16/20 17:44
== END 2020-04-16 18:23 | disposition home or self-care (01) ==
LOC: ED 08:42 → 2N 08:42 → SUATTDRO 13:03 → 2N 14:27

== ENCOUNTER 2023-10-25 05:00 | Observation (INO) ==
--- NOTE | 2023-09-27 16:19 | PAT Medication Instructions ---
Medication Instructions Date of Service September 27, 2023 Home Medications Medication Instructions Recorded meclizine 25 mg tablet 25 mg PO TID PRN dizziness #30 tabs 04/16/20 aspirin 81 mg tablet,delayed release 81 mg PO HS atorvastatin 40 mg tablet 80 mg PO QAM acetaminophen 650 mg tablet,extended release (Tylenol Arthritis Pain) 650 mg PO Q6 PRN multivitamin 1 tab PO QAM omega 3 350 mg-dha 235 mg-epa 90 mg-fish oil 597 mg capsule,delay rel ([place]-3) 1 cap PO TID calcium carbonate 600 mg-vitamin D3 5 mcg (200 unit) tablet 2 tab PO PM carvedilol 6.25 mg tablet 12.5 mg PO BID fluticasone propionate 50 mcg/actuation nasal spray,suspension (Flonase Allergy Relief) 2 spray intranasal DAILY PRN omeprazole 20 mg capsule,delayed release 20 mg PO QAM meclizine 25 mg tablet 25 mg PO TID PRN amlodipine 10 mg tablet 10 mg PO PM amino acids (Amino Acid capsule) 6 cap PO UD iron,carbonyl 65 mg-vitamin C 125 mg tablet,delayed release (Vitron-C) 1 tab PO Q OTHER DAY metformin 500 mg tablet 500 mg PO BID ramipril 10 mg capsule 20 mg PO QAM tamsulosin 0.4 mg capsule 0.4 mg PO QAM Continue as directed fluticasone propionate 50 mcg/actuation nasal spray,suspension (Flonase Allergy Relief) 2 spray intranasal DAILY PRN(if needed) ASK your surgeon for instructions amino acids (Amino Acid capsule) 6 cap PO UD ASK your prescriber and surgeon aspirin 81 mg tablet,delayed release 81 mg PO HS STOP taking 2 weeks before surgery (or as soon as possible if surgery is within 2 weeks) omega 3 350 mg-dha 235 mg-epa 90 mg-fish oil 597 mg capsule,delay rel ([place]-3) 1 cap PO TID DO NOT take the morning of surgery multivitamin 1 tab PO QAM iron,carbonyl 65 mg-vitamin C 125 mg tablet,delayed release (Vitron-C) 1 tab PO Q OTHER DAY metformin 500 mg tablet 500 mg PO BID ramipril 10 mg capsule 20 mg PO QAM Take morning of surgery With a small sip of water, OTHERWISE NOTHING TO EAT OR DRINK AFTER MIDNIGHT: atorvastatin 40 mg tablet 80 mg PO QAM acetaminophen 650 mg tablet,extended release (Tylenol Arthritis Pain) 650 mg PO Q6 PRN(if needed) carvedilol 6.25 mg tablet 12.5 mg PO BID omeprazole 20 mg capsule,delayed release 20 mg PO QAM meclizine 25 mg tablet 25 mg PO TID PRN(if needed) tamsulosin 0.4 mg capsule 0.4 mg PO QAM Take evening before surgery acetaminophen 650 mg tablet,extended release (Tylenol Arthritis Pain) 650 mg PO Q6 PRN(if needed) calcium carbonate 600 mg-vitamin D3 5 mcg (200 unit) tablet 2 tab PO PM carvedilol 6.25 mg tablet 12.5 mg PO BID meclizine 25 mg tablet 25 mg PO TID PRN(if needed) amlodipine 10 mg tablet 10 mg PO PM metformin 500 mg tablet 500 mg PO BID Other Notes If you have any questions please call us at [phone] or [phone] or [phone] or [phone]
--- NOTE | 2023-10-03 08:11 | Anesthesiology Consultation ---
Date of Service October 03, 2023 Assessment & Plan (1) Encounter for pre-operative examination: - Check BSG AM DOS - Infectious disease screening: Per assessment on 10/03/23: No known infectious disease contacts or current infectious disease symptoms. No noted recent Covid positive test result. - Outpatient joint assessment: Pt currently scheduled for inpatient pathway. If surgeon requests review for outpatient joint pathway, patient is not recommended candidate for outpatient joint program from anesthesia standpoint based on available information. - Cardiology visit (01/31/23): "Patient reports carvedilol was increased earlier this summer due to uncontrolled hypertension. Blood pressure now improved in clinic. He reports occasional elevated readings at home. He has not been exercising as frequently as he used to due to significant hip pain. He is having steroid injections which has aided his symptoms. He is trying to avoid surgery. He continues to ride his stationary bike several days per week. Rode this morning for 30 minutes. No exertional symptoms.. Stable cardiac symptoms. BP controlled in clinic. Continue current medications. Appropriate function of device per last interrogation. Will monitor.. Lipids uncontrolled last fall. He reports compliance with atorvastatin. Recheck with next labs. Orders placed. Recommend regular aerobic exercise. [place] goal would be minimum of 30 minutes done daily. Exercise can be done in divided time periods if needed. Told to avoid extremes in temperature." One year f/u recommended. Chart Review Chart Review: Acceptable Risk for Surgery and Patient seen in Pre Admission Testing Teaching & Discussion Pre-Anesthesia Teaching/Discussion Notes: Instructed NPO after midnight before surgery,except medications with 15 cc of water. Medication instructions provided according to the PAT guidelines. History Surgery Operation Date: 10/25/23 10:40 Proposed Procedures p Right Total Hip Arthroplasty - Jamal Pineda MD Height/Weight Height: 6 ft 1 in Weight: 113.3 kg Allergies Allergy/AdvReac Type Severity Reaction Status Date / Time Penicillins Allergy Intermediate Hives Verified 09/27/23 08:31 Medications Home Medications Medication Instructions Recorded Confirmed Last Taken aspirin 81 mg tablet,delayed 81 mg PO HS 01/31/19 09/27/23 04/04/21 release atorvastatin 40 mg tablet 80 mg PO QAM 01/31/19 09/27/23 04/05/21 06:30 acetaminophen 650 mg 650 mg PO Q6 PRN Pain 08/07/19 09/27/23 Unknown tablet,extended release (Tylenol Arthritis Pain) multivitamin 1 tab PO QAM 08/07/19 09/27/23 04/04/21 omega 3 350 mg-dha 235 mg-epa 90 1 cap PO TID 08/07/19 09/27/23 04/04/21 mg-fish oil 597 mg capsule,delay rel ([place]-3) calcium carbonate 600 mg-vitamin 2 tab PO PM 04/15/20 09/27/23 04/04/21 D3 5 mcg (200 unit) tablet carvedilol 6.25 mg tablet 12.5 mg PO BID 04/15/20 09/27/23 04/05/21 06:30 fluticasone propionate 50 2 spray intranasal DAILY PRN 04/15/20 09/27/23 04/04/21 mcg/actuation nasal seasonal allergies spray,suspension (Flonase Allergy Relief) omeprazole 20 mg capsule,delayed 20 mg PO QAM 04/15/20 09/27/23 04/04/21 release meclizine 25 mg tablet 25 mg PO TID PRN dizziness #30 tabs 04/16/20 09/27/23 Unknown amlodipine 10 mg tablet 10 mg PO PM 03/31/21 09/27/23 04/04/21 amino acids (Amino Acid capsule) 6 cap PO UD 09/27/23 09/27/23 Unknown iron,carbonyl 65 mg-vitamin C 125 1 tab PO Q OTHER DAY 09/27/23 09/27/23 Unknown mg tablet,delayed release (Vitron-C) metformin 500 mg tablet 500 mg PO BID 09/27/23 09/27/23 Unknown ramipril 10 mg capsule 20 mg PO QAM 09/27/23 09/27/23 Unknown tamsulosin 0.4 mg capsule 0.4 mg PO QAM 09/27/23 09/27/23 Unknown Past Medical History Medical History Arthritis BPH (benign prostatic hyperplasia) CKD (chronic kidney disease), stage III Diabetes mellitus, type 2 NIDDM GERD (gastroesophageal reflux disease) High cholesterol History of Cabezas's palsy Hypertension Low iron Diet-managed Osteoarthritis Pacemaker Implanted 2018, Medtronic, r/t SSS/bradycardia Follows with [facility] Sick sinus syndrome due to SA node dysfunction Vertigo Meclizine PRN (No recent need/issue) Exercise / Class Metabolic Activity II 4-5 Yardwork/Stairs/Walk up hill (one FS: No CP, no SOB) Past Family History Family History Father Prostate cancer Myocardial infarction, Onset Age: 70 Coronary heart disease Mother Coronary heart disease Other No significant past medical history Past Surgical History Surgical History History of cataract surgery R/L History of colonoscopy with polypectomy History of esophagogastroduodenoscopy (EGD) History of permanent cardiac pacemaker placement (2019) History of tooth extraction Hx of vasectomy Past Anesthesia History No Hx of Anesthesia Complications and No Family Hx of Anesthesia Complications History of PONV No Hx of PONV and No Hx of Motion Sickness Social History Smoking Status: Former smoker Do You Dip or Chew Tobacco: No Smoking End Date: Quit Hx Alcohol Use: Yes Alcohol type: wine alcohol intake frequency: a few times a week Hx Substance Use: No substance use type: does not use Review of Systems Patient denies chest pain, shortness of breath, dyspnea on exertion, fever, chills, cough, wheezing, palpitations. Physical Exam Vital Signs BP 129/73 P 63 TEMP 98.2 SP02 96%RA RESP 18 Physical Full cervical extension range of motion. Full TMJ range of motion. TMD 3 finger breaths Mallampati Score 2 Dentition: intact, + crowns (molars) Lungs: clear throughout to auscultation Cardiac: regular rate and rhythm, no murmurs noted Spine: normal Carotid arteries: negative bruit Extremities: no LE edema Lab Results Anesthesia Preop Results Results Anesthesia Widget: WBC 5.59 K/ul (4.8-10.8) 10/03/23 Hgb 15.4 g/dl (14.0-18.0) 10/03/23 Hct 44.5 % (42.0-52.0) 10/03/23 Plt 131 K/uL (130-400) 10/03/23 Na 137 mmol/L (136-145) 10/03/23 K 4.3 mmol/L (3.5-5.1) 10/03/23 Cl 104 mmol/L (98-107) 10/03/23 CO2 29 mmol/L (21-32) 10/03/23 BUN 18 mg/dl (6-23) 10/03/23 Creat 1.03 mg/dl (0.6-1.4) 10/03/23 Glucose Level 131 mg/dl (70-99(Fasting)) H 10/03/23 PT 11.4 Seconds (9.0-12.0) 10/03/23 PTT 26 Seconds (21-31) 10/03/23 INR 1.1 (0.9-1.1) 10/03/23 HA1c 6.4 % (4.5-5.6) H 10/03/23 Blood Type AB Positive 10/03/23 Antibody Screen NEGATIVE 10/03/23 Testing Electrocardiogram Date: 10/03/23 Atrial paced rhythm with prolonged AV conduction at 65bpm. Inferior infarct, age undetermined. No significant change compared to 04/15/2020 per crown blocker comparison. Echo done 02/2021* Chest X-Ray Date: 10/03/23 FINDINGS: The lungs are clear. The heart is normal in size. There is left-sided dual-chamber pacemaker. No pleural effusions. No pneumothorax. No acute fractures. IMPRESSION: No acute process. Echocardiogram Date: 02/18/21 LVEF 60-64%. Mildly increased cLV wall thickness. LV wall motion normal. Moderate AV sclerosis. Grade I DD. Mild TR. Estimated PASP 33mmhg. Other Testing Pacer check Date: 06/26/23 Medtronic. 9.9 years battery longevity. Mode AAIR <=> DDDR. [employer] OPERATOR 0.3%. AP 99.8%. "Normal device function"
--- NOTE | 2023-10-21 09:58 | History & Physical Report ---
Date of Service October 21, 2023 Assessment & Plan (1) Degenerative joint disease of right hip: 77-year-old medical with a 2 through history of increasing right hip pain consistent with advanced hip arthritis. Failed conservative treatment. He like to have his hip fixed. Discussed some other medical issues which seem to be under control. Got a pacemaker in place. She is got diabetes but fairly well- controlled with an A1c of 6.4. Plan: Orgran taken to the operating room right total hip placement the risks Mente this procedure planed the patient include but not limited to DVT, PE, , infection, neurovascular injury, blood clot, dislocation, fracture excetra. The patient understands and desires to proceed. Informed consent is obtained. He is planned to be discharged to home using [facility]. Will plan on DVT prophylaxis including thigh-high teds, SCDs, aspirin twice a day. [place] careful with the NSAIDs as he is got some underlying kidney disease. (2) Bilateral primary osteoarthritis of knee: (3) Pacemaker: (4) High cholesterol: (5) Osteoarthritis: History of Present Illness Chief Complaint: . Right hip pain Primary Care Provider: Elysia Burkett DO . Patient is a 77-year-old gentleman who is a now retired presents with a 2 to 3-year history of increasing right hip pain discomfort is gotten worse over time. Describes groin and thigh pain rating down to his knee. He seen Dr. Figueredo at [facility] and had several injections. They are done about every 4 months. They helped initially but become less successful over time. No numbness or radicular symptoms. He limps and limps more as the day goes on. Decreased walking tolerance was only a couple blocks. He is ready to have his hip fixed. Allergies Allergy/AdvReac Type Severity Reaction Status Date / Time Penicillins Allergy Intermediate Hives Verified 09/27/23 08:31 Home Medications Medication Instructions Recorded Confirmed Type aspirin 81 mg tablet,delayed 81 mg PO HS 01/31/19 09/27/23 History release atorvastatin 40 mg tablet 80 mg PO QAM 01/31/19 09/27/23 History acetaminophen 650 mg 650 mg PO Q6 PRN Pain 08/07/19 09/27/23 History tablet,extended release (Tylenol Arthritis Pain) multivitamin 1 tab PO QAM 08/07/19 09/27/23 History omega 3 350 mg-dha 235 mg-epa 90 1 cap PO TID 08/07/19 09/27/23 History mg-fish oil 597 mg capsule,delay rel ([place]-3) calcium carbonate 600 mg-vitamin 2 tab PO PM 04/15/20 09/27/23 History D3 5 mcg (200 unit) tablet carvedilol 6.25 mg tablet 12.5 mg PO BID 04/15/20 09/27/23 History fluticasone propionate 50 2 spray intranasal DAILY PRN 04/15/20 09/27/23 History mcg/actuation nasal seasonal allergies spray,suspension (Flonase Allergy Relief) omeprazole 20 mg capsule,delayed 20 mg PO QAM 04/15/20 09/27/23 History release meclizine 25 mg tablet 25 mg PO TID PRN dizziness #30 tabs 04/16/20 09/27/23 Rx amlodipine 10 mg tablet 10 mg PO PM 03/31/21 09/27/23 History amino acids (Amino Acid capsule) 6 cap PO UD 09/27/23 09/27/23 History iron,carbonyl 65 mg-vitamin C 125 1 tab PO Q OTHER DAY 09/27/23 09/27/23 History mg tablet,delayed release (Vitron-C) metformin 500 mg tablet 500 mg PO BID 09/27/23 09/27/23 History ramipril 10 mg capsule 20 mg PO QAM 09/27/23 09/27/23 History tamsulosin 0.4 mg capsule 0.4 mg PO QAM 09/27/23 09/27/23 History Wheeled Walker #1 ea 10/17/23 Rx Wheeled Walker #1 ea 10/17/23 Rx Past Med/Surg History Problem List (Updated 10/21/23 @ 09:57 by Jamal Pineda MD) Bilateral primary osteoarthritis of knee Degenerative joint disease of right hip Encounter for pre-operative examination Medical History Pacemaker Implanted 2019, Medtronic, r/t SSS/bradycardia Follows with [facility] Arthritis Diabetes mellitus, type 2 NIDDM History of Cabezas's palsy Hypertension High cholesterol Osteoarthritis GERD (gastroesophageal reflux disease) Vertigo Meclizine PRN (No recent need/issue) Low iron Diet-managed BPH (benign prostatic hyperplasia) CKD (chronic kidney disease), stage III Sick sinus syndrome due to SA node dysfunction Surgical History History of cataract surgery R/L Hx of vasectomy History of esophagogastroduodenoscopy (EGD) History of tooth extraction History of permanent cardiac pacemaker placement (2019) History of colonoscopy with polypectomy Family History Father Prostate cancer Myocardial infarction, Onset Age: 70 Coronary heart disease Mother Coronary heart disease Other No significant past medical history Social History Smoking Status: Former smoker Smoking End Date: Quit ; Second Hand Exposure: No; Do You Dip or Chew Tobacco: No; Tobacco Cessation Education Requested by Patient: No Hx Alcohol Use: Yes Alcohol type: wine Hx Substance Use: No Preferred Language: Yakut Communication Ability: Effective Continuity Person Required: No Beliefs That Will Affect Care: None marital status: Current Living Situation: Spouse Other Information That Helps Us Care for You: No Feels Safe at Home: Yes Safety Concerns: Feels Safe At This Time Assistive Devices: Cane and Glasses Review of Systems All systems reviewed & are unremarkable except as noted in HPI & below. Physical Exam . Physical examination reveals a pleasant fairly large middle-age male. Looks in pretty good health. Examination of the right leg reveals patient walks a slightly antalgic gait. Leg lengths appear pretty equal please get stiffness and pain with any type of hip motion. He can internally rotate to about neutral which recreates his pain. Negative straight leg raise. He is neurologically intact. Examination of his knees reveal varus alignment to his knee with some bony hypertrophy medially. Minimal knee effusions. Knees are little stiff with range of motion from 5 5-1 20. Constitutional WD/WN, vitals as above Neck trachea midline, no thyromegaly Respiratory normal respiratory effort, lungs clear to auscultation Cardiovascular RRR, no murmur, no edema Gastrointestinal (Abdomen) normal bowel sounds, soft, nontender, no hepatosplenomegaly Results & Data Results & Data Laboratory Results . Diagnostic Findings . X-rays of the right hip reveal advanced hip arthritis. To complete loss of his joint space. Fairly concentric disease. Fairly minimal osteophyte formation PG Care Time/CCT Total # of Minutes Spent Total Time Spent with Patient: Total time spent is greater than 50% in coordination of care (as documented) at patient's floor/unit and/or counseling patient: Coding Level of Care Code None Diagnoses Degenerative joint disease of right hip M16.11 Bilateral primary osteoarthritis of knee M17.0 Pacemaker Z95.0 High cholesterol E78.00 Osteoarthritis M19.90
[2023-10-25] MEDS: LR 60ML/HR IV SCH (05:48)
[2023-10-25] MEDS: ACETAMINOPHEN 500 MG TAB PO SCH ×2 (05:51→10:35)
[2023-10-25] MEDS: FAMOTIDINE 20 MG TAB PO SCH (05:51)
[2023-10-25] MEDS: METOCLOPRAMIDE HCL 10 MG TABLET PO SCH (05:51)
[2023-10-25] MEDS: CeleBREX 200 MG CAP PO SCH (05:51)
[2023-10-25] MEDS: LR 500ML BOLUS, THEN 15ML/HR IV SCH (05:53)
[2023-10-25] MEDS ORDERED: fentaNYL citrate PF 100 MCG/2 ML VIAL ONE (05:59)
[2023-10-25] MEDS ORDERED: MIDAZOLAM HCL 1 MG/ML 2ML VIAL ONE ×2 (05:59→07:08)
[2023-10-25] MEDS ORDERED: MoRPHine SULFATE PF 1 MG/ML 10 ML AMP/VIAL ONE (06:01)
[2023-10-25] MEDS ORDERED: DexMEDEtomidine HCL IV 100 MCG/ML VIAL IV ONE (06:22)
[2023-10-25] MEDS ORDERED: BUPIVACAINE 0.5 % 5 MG/1 ML PF 10ML VIAL ONE (06:28)
[2023-10-25] MEDS: dexAMETHasone**PF** 10 MG/ML VIAL ONE (06:33)
[2023-10-25] MEDS: DEXAMETHASONE SOD INJ 4 MG/ML VIAL IV SCH (06:34)
[2023-10-25] MEDS ORDERED: HYDROmorphone INJ 1 MG/ML SYRINGE IV PRN (06:38)
[2023-10-25] MEDS ORDERED: ATROPINE SULFATE 0.1 MG/ML 10ML SYR IV PRN (06:38)
[2023-10-25] MEDS ORDERED: ONDANSETRON INJ 2 MG/ML 2 ML VIAL IV PRN ×2 (06:38→09:56)
[2023-10-25] MEDS ORDERED: ePHEDrine sulfate 50 MG/ML AMP IV PRN (06:38)
--- NOTE | 2023-10-25 06:39 | History & Physical Bridge Note ---
Date of Service October 25, 2023 History & Physical Bridge Note I have examined the patient, reviewed the History & Physical and in the interval since the performance of the History & Physical I have noted the following changes of clinical significance: no changes noted
[2023-10-25] MEDS: TRANEXAMIC ACID 1,000 MG **IV Pre-op IV SCH (06:42)
[2023-10-25] MEDS: ceFAZolin 2000MG 2,000 MG/15 ML SYR IV SCH ×2 (06:55→14:53)
[2023-10-25] MEDS ORDERED: ROPIVACAINE 0.5% 5 MG/ML 30 ML VIAL ONE (07:15)
[2023-10-25] MEDS ORDERED: PROPOFOL IV EMULSION 10 MG/ML 20 ML VIAL IV ONE (07:19)
[2023-10-25] MEDS ORDERED: PHENYLEPHRINE 100MCG/ML 10ML SYR IV ONE (07:31)
[2023-10-25] MEDS: BUPIVACAINE/EPINEPHRINE 0.5% MPF 1:200,000 30 ML VIAL ONE (07:44)
--- NOTE | 2023-10-25 08:26 | Operative Report ---
PG Post Operative Report Pre & Post Diagnosis Operation Date: 10/25/23 07:00 Pre-Op Diagnosis: Right Hip Degeneartive Joint Disease Post-Op Diagnosis: Right Hip Degeneartive Joint Disease I identified the patient and participated in the time-out.: Yes Procedure Operation Date: 10/25/23 07:00 Actual Procedures p Right Total Hip Arthroplasty(Right) - Jamal Pineda MD Surgeon Jamal Pineda MD Mill Tender Bruno Harmon PA-C Estimated Blood Loss 200 Findings Consistent with Post-Op Diagnosis Operative findings revealed advanced right hip arthritis. He had extensive grade 4 disease of the femoral head and acetabulum. Significant osteophytes particular around the femoral head and neck area. Very stiff hip preoperatively but the significant flexion contracture. Specimens Right femoral head sent for pathology Anesthesia Type Spinal MAC Complications none Indications Patient is a 77-year-old gentleman has had a several year history of increasing right hip pain discomfort stiffness. Failed conservative measures. X-rays show advanced hip arthritis. He elected proceed with total hip arthroplasty. Description of Procedure Operative implants consist of: 1 Biomet G7 size 58 mm acetabular shell. 2. 6.5 cancellous acetabular screws 1 of 35 mm in length 1 to 30 mm length. 3. [place] hole substance abuse prevention coordinator. 4. Highly cross-linked polyethylene liner with a 58 mm outer diameter and 40 mm inner diameter. 5. DePuy Corail size 12 KLA femoral stem. 6. +5/40 mm ceramic articular ball. The patient was taken the op room, identified, placed on the operating table in the supine position. All contact areas were appropriately padded. IV antibiotics tried by anesthesia team. Spinal anesthetic had been implemented holding area. The patient then placed in the left lateral decubitus position. An axillary roll was placed. Distal Birkett position was used for positioning. The right hip and leg were then prepped and draped in usual sterile fashion. A posterolateral approach to the right hip was then performed to a curvilinear incision centered over the greater trochanter. Sharp dissection was carried out down through subcutaneous tissues down to the IT band and gluteal fascia through the IT band gluteal fascia incised longitudinally in line with skin incision. The underlying greater bursa was excised. The piriformis and external rotators along with the posterior hip joint capsule were then released from the posterior aspect hip as a single layer. Great care was taken throughout the procedure protect the sciatic nerve at all times. Hip was internally rotated and dislocated. Femoral neck osteotomy cut was made with Final Cut about 15 mm above the lesser trochanter. Femoral head was removed and sent for pathology. The femur was retracted anteriorly. Attention drawn the acetabulum. The acetabular labrum was excised. The pulmonary fat was excised. Sequential reaming the acetabular was then performed again with a size 45 and progressing up to 57. I reamed a little bit with a 58 reamer and then placed a 58 mm Biomet acetabular shell in about 40 degrees lateral opening and 20 degrees of anteversion. It was fixed with two 6.5 screws. A trial liner was placed. Attention drawn the femur. The proximal femur was entered with a Zebtab cutter followed by canal finder. Then broached beginning size 8 and progressing up to a 12 to get excellent fitted to 12. I trialed the hip and the +5 articular ball seem to recreate leg lengths equal. He was a little tight in extension but this is the way he was preoperatively as well. We elected to use a 40 mm head in order to maximize his stability. We elect to place these implants. All trial implants were removed. [place] dairy manager was placed. Highly cross- linked polyethylene liner was placed. A size 12 KLA femoral stem was impacted in position. A +5/40 mm ceramic articular ball was placed. Hip was located and once again found to be stable. Attention drawn toward closing. The wound was irrigated copious amounts of normal saline. The IT band gluteal fascia then closed with #1 PDS suture in a running fashion for subcutaneous tissues then closed with 2 layers of the deep layer #1 Vicryl suture subcutaneous tissues with 2-0 Dexon suture in a buried interrupted fashion. Skin was closed skin shimon. Leg was then cleaned and dried and a sterile dressing with Xeroform, 4 fours, ABD pad and foam tape was applied. The patient was then transferred to the recovery room in stable condition. The patient tolerated procedure well and there are no complications. Bruno Harmon, my physician retail assistant, was present for the entire procedure. His assistance was essential and required for appropriate patient positioning, prepping and draping, surgical exposure, performing the technical details of the operation, placement the implants, closure of the wound, and placement of the sterile bandage. I attest to the content of the Intraoperative Record and any orders documented therein. Any exceptions are noted below.
--- NOTE | 2023-10-25 09:18 | XRay Report ---
XR hip 1V RT w pelvis HISTORY: 77 years-old Male IN PACU - Post Surgical right hip arthroplasty COMPARISON: 09/25/2023 TECHNIQUE: AP view of the pelvis with crosstable lateral view of the right hip FINDINGS: Mild to moderate left hip osteoarthritis. Right hip arthroplasty with lateral skin shimon, expected postoperative soft tissue swelling and deep tissue air. No acute fracture, dislocation or unexpected opaque foreign body. IMPRESSION: Right hip arthroplasty with expected postoperative changes. ACT 112: Negative or not required by law. The above report was generated using voice recognition software. It may contain grammatical, syntax o r spelling errors. Electronically signed by: Michel Nevarez M.D. 10/25/2023 9:15 AM
--- NOTE | 2023-10-25 09:27 | Anesthesiology Progress Note ---
Date of Service October 25, 2023 Anesthesia Post Procedure Vital Signs Vital Signs: Temp Pulse Resp BP Pulse Ox O2 Del Method O2 Flow Rate 10/25/23 09:15 60 12 117/64 96 Room Air 10/25/23 09:00 60 20 106/62 94 Room Air 10/25/23 08:50 36.5 C 60 20 119/64 98 Room Air 10/25/23 08:40 60 16 119/54 L 95 Room Air 10/25/23 08:30 60 18 115/60 99 Oxymask 4 10/25/23 08:20 36 C L 60 16 106/63 99 Oxymask 6 10/25/23 05:33 36.5 C 90 20 149/75 H 97 Room Air Pain Intensity Right Hip: Pain Intensity: 3 Transfer of Care Handoff Completed per policy Notes Mental Status: alert / awake / arousable Patient Amnestic to Procedure: Yes Nausea / Vomiting: adequately controlled Pain: adequately controlled Airway Patency, RR, SpO2: stable & adequate BP & HR: stable & adequate Hydration State: stable & adequate Neuraxial Anesthesia: was administered and sensory block is resolving Anesthetic Complications: no major complications apparent
[2023-10-25] MEDS ORDERED: MAGNESIUM HYDROXIDE SUSP 30 ML UDC PO PRN (09:56)
[2023-10-25] MEDS ORDERED: FLUTICASONE PROPIONATE NA SPR 16 GM BTL NAE PRN (09:56)
[2023-10-25] MEDS ORDERED: PHARMACY GLYCEMIC MGMT CONSULT PRN (09:56)
[2023-10-25] MEDS ORDERED: HYDROmorphone INJ 0.5 MG/0.5 ML SYR IV PRN (09:56)
[2023-10-25] MEDS ORDERED: ALUMINUM/MAGNESIUM SUSP 30 ML UDC PO PRN (09:56)
[2023-10-25] MEDS ORDERED: MECLIZINE HCL 25 MG TAB PO PRN (09:56)
[2023-10-25] MEDS ORDERED: NON-FORMULARY MEDICATION (Amino Acids [Amino Acid] Capsule) PO SCH (09:56)
[2023-10-25] MEDS ORDERED: METOCLOPRAMIDE HCL INJ 5 MG/ML 2 ML VIAL IV PRN (09:56)
[2023-10-25] MEDS ORDERED: NALOXONE HCL 0.4 MG/1 ML VIAL/CARP IV PRN (09:56)
[2023-10-25] MEDS ORDERED: NON-FORMULARY MEDICATION (Iron,Carbonyl-Vitamin C [Vitron-C] 65 mg iron- 125 mg Tablet,Del PO SCH (09:56)
[2023-10-25] MEDS ORDERED: bisacodyL 10 MG SUPP PR PRN (09:56)
[2023-10-25] MEDS: SODIUM CHLORIDE 0.9% 1,000 ML IV SCH (10:20)
[2023-10-25] MEDS: NON-FORMULARY MEDICATION (Multivitamin Tablet) PO SCH (10:29)
--- NOTE | 2023-10-25 10:30 | Pharmacy Report ---
Pharmacy Glycemic Short Note 2 - Date of Service October 25, 2023 - Glycemic Short BSG Results (Last 24 hours): 10/25/23 10/25/23 05:36 08:24 POC Glucose 146 H 206 H OUTPATIENT ANTIDIABETIC REGIMEN: * Metformin 500mg PO BID * A1c 6.4% 10/03/23 ASSESSMENT: * 77 yo M s/p R JÚNIOR - type 2 DM on metformin alone at home, patient received 10mg IV dexamethasone preop, and scheduled to have dose tomorrow. * Hyperglycemic post op, BSG 206mg/dl. * Oral agents are not recommended for inpatient use d/t drug interactions, changing PO intake, and difficulty titrating for acute hyper/hypoglycemia. ADA recommends re-initiating outpatient oral agents 1-2 days prior to discharge if/when appropriate if they were held on admission. * Will hold oral agents for admission and utilize SQ basal bolus insulin regimen which is the recommended regimen for inpatient glycemic control. * Will initiate weight based insulin dosing for insulin chelsie patient and titrate based on BSG trends. * Lantus to cover steroid effects now, and PRN dose tonight, further dosing in AM. * Tight NovoLog coverage while on IV steroids. PLAN FOR INPATIENT GLYCEMIC CONTROL: * Hold outpatient oral diabetes medications * Basal insulin * Lantus 30 units SQ x 1 dose now, then 0-20 units HS (0 units BSG< 180, 10 units BSG 180-220, 20 units BSG > 220), then further dosing in AM * Bolus insulin * NovoLog per scale ACHS or Q6hrs while NPO * Goal Range: Low 110 mg/dL - High 140 mg/dL * Correction Factor: 15 mg/dL/unit * Nutritional / Prandial insulin per carb ratio of 1 unit per 5 grams CHO consumed
[2023-10-25] MEDS: KETOROLAC TROMETHAMINE 15 MG/ML VIAL IV SCH (10:35)
[2023-10-25] MEDS: LANTUS PER UNIT CHARGE SC ONE (10:40)
[2023-10-25] MEDS: carvediloL 12.5 MG TAB PO SCH (11:10)
[2023-10-25] MEDS: ATORVASTATIN 40 MG TAB PO SCH (11:10)
[2023-10-25] MEDS: TAMSULOSIN HCL 0.4 MG CAP PO SCH (11:11)
[2023-10-25] MEDS: ENALAPRIL MALEATE 10 MG TAB PO SCH (11:11)
[2023-10-25] MEDS: SENNA 8.6 MG TAB PO SCH ×2 (11:11→20:50)
[2023-10-25] MEDS: ASPIRIN 81 MG ECTAB PO SCH (11:11)
[2023-10-25] MEDS: DOCUSATE SODIUM 100 MG CAP PO SCH (11:11)
[2023-10-25] MEDS: OMEGA-3 (PURIFIED FISH OIL) 1 GM CAP PO SCH (11:11)
[2023-10-25] MEDS: MULTIVITAMIN TAB PO SCH (11:11)
[2023-10-25] MEDS: ASCORBIC ACID 500 MG TAB PO SCH ×2 (11:12→16:08)
[2023-10-25] MEDS: PANTOprazole 40 MG TAB PO SCH (11:12)
[2023-10-25] MEDS: FERROUS SULFATE 325 MG TAB PO SCH (11:13)
[2023-10-25] MEDS: INSULIN ASPART PER UNIT CHARGE SC SCH (12:27)
[2023-10-25] MEDS: TRANEXAMIC ACID / 0.7% NACL 1,000 MG/100 ML BAG IV SCH (14:15)
[2023-10-25] MEDS: traMADol HCL 50 MG TABLET PO PRN (16:15)
[2023-10-25] MEDS: amLODIPine BESYLATE 5 MG TAB PO SCH (20:48)
[2023-10-25] MEDS: CALCIUM 600MG + VIT D 400 IU TAB PO SCH (20:50)
[2023-10-25] MEDS: LANTUS PER UNIT CHARGE SC SCH (20:54)
[2023-10-25] MEDS ORDERED: ASPIRIN 81 MG ECTAB PO SCH (21:00)
[2023-10-26 06:09] LABS: Basophils # (auto) 0.02 K/uL (0.00-0.20); Basophils % (auto) 0.2 %; Eosinophils # (auto) 0.01 K/uL (0.00-0.50); Eosinophils % (auto) 0.1 %; Hematocrit (blood only) 38.2 % (42.0-52.0); Hemoglobin 13.4 g/dl (14.0-18.0); Immature Granulocytes # (auto) 0.04 K/uL (0.01-0.20); Immature Granulocytes % (auto) 0.3 %; Lymphocytes # (auto) 1.07 K/uL (1.20-3.40); Lymphocytes % (auto) 8.6 %; Mean Corpuscular Hemoglobin 30.5 pg (25.0-34.0); Mean Corpuscular Hgb Conc 35.1 g/dL (32.0-36.0); Mean Corpuscular Volume 86.8 fL (80.0-100.0); Mean Platelet Volume 10.9 fL (9.4-12.4); Monocytes # (auto) 1.33 K/uL (0.11-0.59); Monocytes % (auto) 10.7 %; Neutrophils # (auto) 9.92 K/uL (1.40-6.50); Neutrophils % (auto) 80.1 %; Platelet Count 120 K/uL (130-400); RDW Coefficient of Variation 12.3 % (11.5-14.5); White Blood Count 12.39 K/ul (4.8-10.8)
[2023-10-26 06:27] LABS: BUN Creatinine Ratio 22.5 (10-20); Calcium 8.7 mg/dl (8.6-10.3); Creatinine Clr Calc Pharmacy 80.9 ml/min; Est GFR (African American) 82.4 ml/min; Est GFR (Non-African American) 71.1 ml/min; Potassium 4.1 mmol/L (3.5-5.1)
--- NOTE | 2023-10-26 07:28 | Surgery Progress Note ---
Date of Service October 26, 2023 Assessment & Plan (1) Status post right hip replacement: Plan: 77-year-old gentleman postop day 1 from right hip replacement doing pretty well. 3 pain. Lying in bed. He is pretty concerned about having pain when he mobilizes. Plan: 1. PT/OT. Weight-bear as tolerated. Right total hip protocol. 2. Pain control done okay with current pain regimen. I explained to him how we typically manage this and will plan on using Tylenol and tramadol. 3. DVT prophylaxis including thigh-high teds, SCDs, aspirin twice daily. 4. Disposition plan is to discharge to home if he does okay in therapy. Work to see how therapy goes today. Admission and Anticipated Discharge Date Admission Date: October 25, 2023 Subjective 77-year-old gentleman postop day 1 from a right hip replacement. He is doing well this morning. Really not have any pain in bed. He is afraid of having quite a bit of pain when he gets up and moves up. He is taking some Dramamine at all and done okay with that. No chest pain or shortness of breath. Not feeling dizzy or lightheaded. Physical Exam Physical Exam: Physical examination reveals a pleasant elderly male. He is lying in bed this morning looks pretty comfortable. Examination of right hip and leg reveals the dressing be clean dry and intact. Thigh is soft and supple. Leg lengths are equal. He is neurologically intact. Respiratory: normal respiratory effort, lungs clear to auscultation Cardiovascular: RRR, no murmur, no edema Gastrointestinal (Abdomen): normal bowel sounds, soft, nontender, no hepatosplenomegaly Results & Data Vital Signs (Past 12 Hours) Vital Signs Temp Pulse Resp BP Pulse Ox O2 Del Method 10/26/23 03:30 36.6 C 61 14 133/69 94 Room Air 10/25/23 23:53 36.6 C 62 17 128/69 94 Room Air 10/25/23 19:39 36.7 C 67 18 129/71 95 Room Air Laboratory Results Hemoglobin is 13.4. Hematocrit is 38.2. Electrolytes are stable. PG Care Time/CCT Total # of Minutes Spent Total Time Spent with Patient: Total time spent is greater than 50% in coordination of care (as documented) at patient's floor/unit and/or counseling patient: Coding Level of Care Code 68896 Post Operative Follow-Up Diagnoses Status post right hip replacement Z96.641
[2023-10-26 08:16] VITALS: BP 146/72; PULSE 65; RESP 17; TEMP 98.2; O2SAT 95
[2023-10-26] MEDS: dexAMETHasone 10 MG in SYRINGE 0 ML IV SCH (08:50)
[2023-10-26] MEDS: LANTUS PER UNIT CHARGE SC ONE (09:03)
--- NOTE | 2023-10-26 09:13 | Discharge Summary ---
Date of Service October 26, 2023 Admission HPI Per Admitting Provider Chief Complaint: Right hip pain Primary Care Provider: Elysia Burkett DO Patient is a 77-year-old gentleman who is a now retired presents with a 2 to 3- year history of increasing right hip pain discomfort is gotten worse over time. Describes groin and thigh pain rating down to his knee. He seen Dr. Figueredo at [facility] and had several injections. They are done about every 4 months. They helped initially but become less successful over time. No numbness or radicular symptoms. He limps and limps more as the day goes on. Decreased walking tolerance was only a couple blocks. He is ready to have his hip fixed. (1) Degenerative joint disease of right hip: 77-year-old medical with a 2 through history of increasing right hip pain consistent with advanced hip arthritis. Failed conservative treatment. He like to have his hip fixed. Discussed some other medical issues which seem to be under control. Got a pacemaker in place. She is got diabetes but fairly well- controlled with an A1c of 6.4. Plan: Orgran taken to the operating room right total hip placement the risks Mente this procedure planed the patient include but not limited to DVT, PE, , infection, neurovascular injury, blood clot, dislocation, fracture excetra. The patient understands and desires to proceed. Informed consent is obtained. He is planned to be discharged to home using [facility] home health program. Will plan on DVT prophylaxis including thigh-high teds, SCDs, aspirin twice a day. Telephone careful with the NSAIDs as he is got some underlying kidney disease. Admission Exam Per Admitting Provider Physical examination reveals a pleasant fairly large middle-age male. Looks in pretty good health. Examination of the right leg reveals patient walks a slightly antalgic gait. Leg lengths appear pretty equal please get stiffness and pain with any type of hip motion. He can internally rotate to about neutral which recreates his pain. Negative straight leg raise. He is neurologically intact. Examination of his knees reveal varus alignment to his knee with some bony hypertrophy medially. Minimal knee effusions. Knees are little stiff with range of motion from 5 5-1 20. Constitutional WD/WN, vitals as above Neck trachea midline, no thyromegaly Respiratory normal respiratory effort, lungs clear to auscultation Cardiovascular RRR, no murmur, no edema Gastrointestinal (Abdomen) normal bowel sounds, soft, nontender, no hepatosplenomegaly Diagnostic Findings X-rays of the right hip reveal advanced hip arthritis. To complete loss of his joint space. Fairly concentric disease. Fairly minimal osteophyte formation Principal Diagnosis Same as "Discharge Diagnosis" noted below under Discharge Instructions. Discharge Exam Physical examination reveals a pleasant elderly male. He is lying in bed this morning looks pretty comfortable. Examination of right hip and leg reveals the dressing be clean dry and intact. Thigh is soft and supple. Leg lengths are equal. He is neurologically intact. Discharge Data Allergies Allergy/AdvReac Type Severity Reaction Status Date / Time Penicillins Allergy Intermediate Hives Verified 10/25/23 05:34 Procedures Performed Operation Date: 10/25/23 07:00 Actual Procedures p Right Total Hip Arthroplasty(Right) - Jamal Pineda MD Ordered Studies Hip/Pelvis X-Ray 10/25/23 08:25 XR hip 1V RT w pelvis HISTORY: 77 years-old Male IN PACU - Post Surgical right hip arthroplasty COMPARISON: 09/25/2023 TECHNIQUE: AP view of the pelvis with crosstable lateral view of the right hip FINDINGS: Mild to moderate left hip osteoarthritis. Right hip arthroplasty with lateral skin shimon, expected postoperative soft tissue swelling and deep tissue air. No acute fracture, dislocation or unexpected opaque foreign body. IMPRESSION: Right hip arthroplasty with expected postoperative changes. ACT 112: Negative or not required by law. The above report was generated using voice recognition software. It may contain grammatical, syntax or spelling errors. Electronically signed by: Michel Nevarez M.D. 10/25/2023 9:15 AM Hospital Course (1) Status post right hip replacement: On October 25, 2023 Paul arrived at [facility] operating room and underwent a right total hip replacement without complications. Patient had a spinal anesthetic for the procedure. Postoperatively, patient was transferred to the general orthopedic floor in stable condition and eventually started onto aspirin 81 mg twice daily for DVT prophylaxis as appropriate. Patient's hospital course was uneventful. On postoperative day #1, patient's vital signs were stable and pain was well-controlled. Patient was able to participate well with physical therapy, safely performing the necessary ambulation and range of motion exercises and properly demonstrating ADL tasks. Patient was then discharged home in stable condition, with assistance of his and home health care services to begin. Patient will follow-up with orthopedics in 2 to 3 weeks for postoperative care. Plan 77-year-old gentleman postop day 1 from right hip replacement doing pretty well. 3 pain. Lying in bed. He is pretty concerned about having pain when he mobilizes. Plan: 1. PT/OT. Weight-bear as tolerated. Right total hip protocol. 2. Pain control done okay with current pain regimen. I explained to him how we typically manage this and will plan on using Tylenol and tramadol. 3. DVT prophylaxis including thigh-high teds, SCDs, aspirin twice daily. 4. Disposition plan is to discharge to home if he does okay in therapy. Work to see how therapy goes today -- UPDATE: Patient did well with therapy and was recommended by PT/OT for discharge to home with assistance of his . [facility] to begin. Total Time Total Time Spent Total Time Spent (In Minutes): Total Time Spent with Patient: Total time spent is greater than 50% in coordination of care (as documented) at patient's floor/unit and/or counseling patient: Discharge Plan Discharge Items Patient Disposition: Home - Home Health Services Reason For Visit: Right Hip Degeneartive Joint Disease Discharge Diagnosis: Right HIp Replacement Activity: Per Instructions section Activity Comment: Follow/Obey hip precautons at all times. Weightbearing: Full weightbearing Weightbearing Comment: Weightbear as tolerated obeying hip precautions at all times. Non-emergency contact: Surgeon Call non-emergency contact if: you have any medication questions Follow-up/Referrals: Elysia Burkett, DO [Primary Care Provider] - Diet: Carb Consistent or DM2 Addtl Attending Provider Instructions: ACTIVITY RECOMMENDATIONS: Physical Therapy: * Aggressive physical therapy is not usually needed. You will learn to take care of yourself safely and walk. * Follow the "Hip Precautions Instructions." * In some cases, the social work lecturer at the hospital will arrange to have a thera pist come to your house for the first couple of weeks to help you learn these skills. * You need to practice on your own or with the help of a family member as needed. * When you learn these skills, most of the therapy can be done on your own. Home Exercise: * You were shown a series of exercises in the hospital. Do these exercises three to four times each day including the exercises you were shown in physical therapy. Walking: * Get up and walk several times each day. For the first four weeks, try not to stand or walk for more than one hour at a time. If you do stand or walk for more than one hour, you will not hurt anything, but your leg will likely swell. * As you feel comfortable, you may change from the walker or crutches to a cane and then to independent walking. MEDICATIONS: New Medicine: * You will likely be taking one or more of these medicines: 1. Tramadol - Take, as directed, when you need it, every six hours to control your pain. 2. Aspirin - Thins your blood to lessen the chance of forming a blood clot. * The most common side effects of pain medicine and iron are nausea and constipation. If nausea or constipation is too much of a problem or if you have any questions about your new medicines or doses, call [facility] at [phone]. We will try to help you manage these issues. "VERY IMPORTANT TO READ AND REVIEW" Pain: * The immediate post-operative period after hip replacement surgery is often quite painful. * You are given a prescription for pain medicine. You should take it, as directed, when you need it, especially before physical therapy and before going to bed. Pain that interferes with sleep is very common and can last several months. * You will likely need pain medicine for the first two to four weeks. It will not stop all of the pain. The pain will lessen and as you feel better, you may change to milder pain medicine such as Tylenol. * The most common side effects of pain medicine are nausea and constipation, so don't take more than you need. SPECIAL CARE INSTRUCTIONS: TEDs/Elastic Stockings: * The white elastic stockings help limit swelling and prevent blood clots from forming in your legs. The more you wear them, the more they work. * Wear them for six weeks. Incision Site Care: * Remove dressing postoperative day 2 and then shower. Keep direct shower pressure off the incision site. * After showering, cover shimon with dry gauze and change daily or more frequently if the dressing is getting saturated with drainage. * May completely stop using bandage if wound is dry and no drainage * Weaver are removed between 2 and 3 weeks post-op. If your follow-up appointment is made before 2 weeks, please have your appointment re- scheduled. It is too early to remove the shimon. Prevention of Infection: * Take antibiotics one hour before any dental cleaning, dental work, urological procedure, gastrointestinal procedure or any invasive surgery in order to prevent your new joint from getting infected. * You may get the antibiotics from the doctor performing the procedure or you may call our office at before and we will call in a prescription to the pharmacy of your choice. Things to Watch For: * Drainage from the incision site that occurs more than one week after your surgery. * Severely increased leg pain or swelling. * Increased redness at the incision site. * Fever above 102 degrees Fahrenheit. * Unusual chest pain or shortness of breath. * Unusual pain or burning with urination. Call [facility] at with any of the above problems or if you have any questions about your medicines or recovery. FOLLOW UP VISIT: Make an appointment to see your doctor for approximately two weeks after surgery for a progress check and staple removal by calling the office at . Pending Studies at Discharge: No Stand-Alone Forms: [facility] Medications and DC Order Prescriptions: Continued (DME) [facility] See Rx Instructions .MEDSUPPLY Qty: 1 0RF Rx Instructions: As directed (DME) [facility] See Rx Instructions .MEDSUPPLY Qty: 1 0RF Rx Instructions: As directed tramadol 50 mg tablet 50 - 100 mg PO Q6 PRN (Reason: pain) Qty: 40 0RF Rx Instructions: Take as needed for pain ondansetron 4 mg tablet,disintegrating 4 mg PO Q8 PRN (Reason: nausea) Qty: 20 1RF Rx Instructions: Take as needed for nausea sennosides [Senokot] 8.6 mg tablet 8.6 mg PO BID 14 Days Qty: 28 0RF Rx Instructions: Take two times a day to prevent/treat constipation acetaminophen [Tylenol Extra Strength] 500 mg tablet 1,000 mg PO TID 30 Days Qty: 180 0RF Rx Instructions: Take3 times per day to lessen pain. aspirin [Fiona Low Dose Aspirin] 81 mg tablet,delayed release (DR/EC) 81 mg PO BID 45 Days Qty: 90 0RF Rx Instructions: Take to prevent blood clots. atorvastatin 40 mg Tablet 80 mg PO QAM carvedilol 6.25 mg tablet 12.5 mg PO BID calcium carbonate-vitamin D3 600 mg(1,500mg) -200 unit Tablet 2 tab PO PM fluticasone propionate [Flonase Allergy Relief] 50 mcg/actuation [place],Suspension 2 spray INTRANASAL DAILY PRN (Reason: seasonal allergies) omeprazole 20 mg Capsule,Delayed Release(Dr/Ec) 20 mg PO QAM meclizine 25 mg Tablet 25 mg PO TID PRN (Reason: dizziness) Qty: 30 0RF multivitamin Tablet 1 tab PO QAM [place]-3 350 mg-235 mg- 90 mg-597 mg Capsule,Delayed Release(Dr/Ec) 1 cap PO TID amlodipine 10 mg tablet 10 mg PO PM Amino Acid Capsule 6 cap PO UD Patient Comments: has not started as of 09/27/2023, will start taking one week prior to surgery as directed tamsulosin 0.4 mg capsule 0.4 mg PO QAM Vitron-C 65 mg iron- 125 mg Tablet,Delayed Release (Dr/Ec) 1 tab PO Q OTHER DAY Patient Comments: every other day in the evening ramipril 10 mg capsule 20 mg PO QAM metformin 500 mg Tablet 500 mg PO BID Discontinued aspirin 81 mg Tablet,Delayed Release (Dr/Ec) 81 mg PO HS acetaminophen [Tylenol Arthritis Pain] 650 mg Tablet Extended Release 650 mg PO Q6 PRN (Reason: Pain) Admission Data Admit Date/Time: 10/25/23 08:25 Attending Provider: Jamal Pineda Admit Provider: Jamal Pineda Primary Care Provider: Elysia Burkett Other Providers: [facility],Home Health Other Interventions: Discharge Summary Assessment (RN) Last Done: 10/26/23 10:37
--- OUTSIDE RECORDS SUMMARY | 2023-10-26 15:03 | External Medical Summary | Summary of Care ---
Author Name Unknown Organization [facility] Address [address] [place] [address] Phone [phone] Care Team Providers Care Health Practice Manager Name Role Phone JonathanrosalindaElysialy Primary Care Provider Encounter Details Date Type Department Care Team (Late st Contact Info) Description 10/09/2023 Result Scan Unspecified Department [facility] [address] [phone] <No scans attached> Allergies Active Allergy Reactions Criticality Noted Date Comments Penicillins 03/11/2004 documented as of this encounter (statuses as of 10/09/2023) Medications Medication Sig Dispensed Refills Start Date End Date Status MULTIVITAMINS PO TABSIndications:in am Take by mouth . 0 01/18/2006 Active OMEGA-3 PO CAPSIndications:Mix ed dyslipidemia three times /day 0 01/18/2006 Act kody CALCIUM + D 600-200 MG-UNIT PO TABSIndications:in evening Take by mouth . Active ASPIRIN 81 MG PO TABSIndications:HTN , goal below 140/90 one tab by mouth daily 34 Tab 5 07/08/2014 Active Acetaminophen 325 MG Oral Tablet Take 2 Tablets by mouth every 6 hours as needed for Pain. Active Meclizine HCl 25 MG Oral Tablet (ANTIVERT)Indicatio ns:Vertigo take 1 tablet by mouth three times a day if needed for dizziness 04/16/2020 Active Fluticasone Propionate 50 MCG/ACT Nasal SuspensionIndicatio ns:as needed Administer 1 [place] into nostril in the morning. Active Lactobacillus Casei-Folic Acid 60-1.25 MG Oral Capsule Take by mouth. Active Accu-Chek Marlena Plus w/Device Kit Use once daily E11.9 1 Kit 04/26/2021 Active Accu-Chek Marlena Plus In Vitro Strip (Glucose Blood) Use once daily E11.9 1 Strip 1 04/26/2021 Active Accu-Chek FastClix Lancet Kit Use once daily E11.9 1 Kit 1 04/26/2021 Active Folic Acid 1 MG Oral Tablet Take 1 Tablet by mouth in the morning. Active Vitron-C 65-125 MG Oral Tablet (Iron-Vitamin C 65-125 mg per tab)Indications:naima ry other day Take 1 Tablet by mouth every other day. 04/19/2022 Active OneTouch Delica Plus [id number] use as directed daily 100 Each 11 07/26/2022 Active Ramipril 10 MG Oral Capsule (Altace)Indications :HTN, goal below 140/90,Sinus node dysfunction (HCC),Presence of cardiac pacemaker,Dyslipide marine, goal LDL below 100 TAKE 2 CAPSULES IN THE MORNING 180 Capsule 2 03/14/2023 Active amLODIPine Besylate 10 MG Oral Tablet (Norvasc)Indication s:Sinus node dysfunction (HCC),Presence of cardiac pacemaker,HTN, goal below 140/90,Dyslipidemia , goal LDL below 100 Take 1 Tablet by mouth in the morning. 90 Tablet 3 04/25/2023 Active Carvedilol 12.5 MG Oral Tablet (Coreg)Indications: Class 1 obesity due to excess calories with serious comorbidity in adult, unspecified BMI Take 1 Tablet by mouth in the morning and 1 Tablet before bedtime. with food. 180 Tablet 3 04/25/2023 Active Tamsulosin HCl 0.4 MG Oral Capsule (Flomax) Take 1 Capsule by mouth in the morning. 90 Capsule 3 04/25/2023 Active metFORMIN HCl ER 500 MG Oral Tablet Extended Release 24 Hour (Glucophage XR) Take 1 Tablet by mouth in the morning. For 7 days then increase to 2 tabs daily. 54 Tablet 11 04/25/2023 Active OneTouch Verio In Vitro Strip (Glucose Blood) use 1 TEST STRIP to TEST BLOOD SUGAR once daily 100 Strip 3 06/01/2023 Active Atorvastatin Calcium 80 MG Oral Tablet (Lipitor) Take 1 Tablet by mouth daily. 90 Tablet 3 07/05/2023 Active Omeprazole 20 MG Oral Capsule Delayed Release (PriLOSEC) take 1 capsule by mouth every morning 1 HOUR BEFORE THE FIRST MEAL OF THE DAY 90 Capsule 3 08/07/2023 Active documented as of this encounter (statuses as of 10/09/2023) Active Problems Problem Noted Date Diagnosed Date Diabetes mellitus without complication Sinus node dysfunction 10/23/2020 Stage 3a chronic kidney disease 05/25/2020 Overview: Per CKD protocol - Per CKD protocol Incomplete emptying of bladd er due to benign prostatic hyperplasia 10/16/2019 Pure hypercholesterolemia 10/16/2019 Presence of cardiac pacemaker 06/25/2019 Essential hypertension with goal blood pressure less than 140/90 01/24/2016 HTN, goal below 140/90 03/11/2004 Esophageal reflux 03/11/2004 Dyslipidemia, goal LDL below 100 Overview: ICD-10 update of inactive term documented as of this encounter (statuses as of 10/09/2023) Resolved Problems Problem Noted Date Diagnosed Date Resolved Date Chronic kidney disease, stage 3a 04/27/2020 05/28/2020 Overview: Per CKD protocol 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 Other allergic rhinitis 03/11/200406/2018 Overview: ICD-10 update of inactive term Benign neoplasm of colon 03/11/200406/2018 documented as of this encounter (statuses as of 10/09/2023) Immunizations Name Administration Dates Next Due COVID-19 mRNA, LNP-s, No Pre serve, 2-Dose Series ([employer]) 08/19/2021,02/09/2021,08/01/2020,06/16 COVID-19, MRNA-LNP, 23-24, P F, 30 MCG/0.3 mL, 12 YRS AND ABOVE, IM (PFIZER-Comirnaty) 02/22/2023 Pneumococcal Conjugate Vacc, 13 Valent (Prevnar) 01/21/2016 Pneumococcal Polysaccharide PPV23 (Pneumovax) 03/07/2012 RSV Vac., Bivalent, Perfusio n F, Pf,0.5 Ml (Abrysvo) 01/26/2023 Season Influenza, Quad, PF, Adjuvanted, 65+ Yrs, IM (FLUAD) 01/24/2020 Seasonal Influenza, PF, 6 M & above, IM , (FluLaval or Fluzone) 01/19/2021,02/04/2019,01/30/2018,03/15 Seasonal Influenza, Quadriva lent Hd (Fluzone Hd) 01/19/2023,01/27/2022 Seasonal Influenza, Quadriva lent, No Preserve, IM 01/21/2016 Seasonal Influenza, Split, I IV3, With Preserve, Inj 01/30/2015,03/19/2014,01/29/2013,02/13,02/04/2011,02/02/2010,02/20/20 09,02/26/2008,03/21/2007,02/20/2006 02/19/2010 TDAP (age 10 and older)(Boostrix) 05/02/2022 TDAP (age 11 and older)(Adacel) 02/02/2010 Varicella Zoster Vaccine (Adult) 03/14/2012 Zoster Vaccine Recombinant (Shingrix) 08/14/2019 ,06/13/2019 documented as of this encounter Social History Tobacco Use Types Packs/Day Years Used Date Smoking Tobacco: Former Cigarettes Q uit: 05/15/1967 Smokeless Tobacco: Never Alcohol Use Standard Drinks/Week Comments Yes 0 (1 standard drink = 0.6 oz pur e alcohol) wine with dinner about 5/week PHQ-2 Answer Date Recorded PHQ Adult Total Score 0 01/19/2023 Sex and Gender Information Value Date Recorded Sex Assigned at Male 11/30/2022 1:26 PM EDT Gender Identity Male 11/30/2022 1:26 PM EDT Sexual Orientation Not on file Job Start Date Occupation Industry Not on file Not on file Not on file documented as of this encounter Plan of Treatment Upcoming Encounters Date Type Department Care Team (Late st Contact Info) Description 01/05/2024 7:40 AM EDT Office Visit Family Practice State Leanna Ramey [address] [place] [address] Elysia Burkett Ana, [address] [place] [id number] Health Maintenance Due Date Last Done Comments GFR 04/21/2023 10/20/2022, 1211/2021, 04/30/2021, Additional history exists COVID-19 Vaccine ( season) 2023 02/22/2023, 08/19/2021, 02/09/2021, Additional history exists Diabetic Eye Exam 08/17/2023 08/16/2022, 07/12/2021 Albumin/Creatinine Ratio 10/21/2023 10/20/2022, 060 05/2021 CKD PHOS USE SMARTSET [id number] 10/21/2023 06/0 12/2022, 04/20/2022, 10/16/2020 HbA1c 10/25/2023 04/25/2023, 060 12/2022, 04/20/2022, Additional history exists Depression Screening 01/20/2024 01/19/2023 CKD HGB USE SMARTSET [id number] 04/25/202404/25, 04/25/2023, 10/20/2022, Additional history exists Diabetic Foot Exam 04/25/2024 04/25/2023, 04/19/2022 DTaP,Tdap,and Td Vaccines (3 - Td or Tdap) 05/02/2032 05/02/2022, 02/02/2010, 07/11/2002 Pneumococcal Vaccine: 65+ Years Completed 01/21/2016, 03/07/2012 Zoster Vaccines Completed 08/14/2019, 05/17, 03/14/2012 Colonoscopy Discontinued 07/30/2021, 07/13, 06/01/2017, Additional history exists Colorectal Cancer Screening Discontinued RETIRED - COLONOSCOPY-EVERY 5 YRS AGES 18-100 Discontinued 07/30/2021, 07/30/2021, 06/01/2017, Additional history exists Influenza Vaccine (FLU shot) Completed 01/19/2023, 01/27/2022, 01/19/2021, Additional history exists Cologuard Discontinued Fecal Occult Blood Test Discontinued GARDASIL-HPV IMMUNIZATION SERIES Aged Out No longer eligible based on patient's age to complete this topic Hepatitis B Aged Out No longer eligi ble based on patient's age to complete this topic MENINGOCOCCAL (MENACTRA/MENVEO) Aged Out No longer eligible based on patient's age to complete this topic Sigmoidoscopy Discontinued documented as of this encounter Medical Devices Not on filedocumented as of this encounter Procedures Procedure Name Priority Date/Time Associated Diagnosis Comments CARDIOLOGY SCANNED RESULT 10/09/2023 documented in this encounter Results * CARDIOLOGY SCANNED RESULT (10/09/2023) 10/09/2023 Gloria Li DO OTHER documented in this encounter Care Teams Health Practice Manager Relationship Specialty Start Date End Date Elysia Burkett DO [address] [place] [address] PCP - General Family Medicine 01/10/18 documented as of this encounter
== END 2023-10-26 11:08 | disposition home health service (06) ==
LOC: 3E 05:00 → ASU 05:00